=== PATIENT | male | born 1980 | race Caucasian/White ===

== ENCOUNTER 2016-07-02 20:29 | Emergency (ER) | payer OTHER ==
[2016-07-02 20:43] VITALS: TEMP 97.5; BMI 19.5
--- NOTE | 2016-07-02 21:21 | PDOC ---
*Physical Exam - Vital Signs Last Vital Signs Temp Pulse Resp BP Pulse Ox 97.5 F L 70 12 121/80 97 07/02/16 20:40 07/02/16 20:40 07/02/16 20:40 07/02/16 20:40 07/02/16 20:40 Medical Decision Making - Medical Decision Making 07/02/16 21:21 agree with care from [employer] SUPERVISOR CHASSIS Cassidy *DC/Admit/Observation/Transfer Diagnosis at time of Disposition: Abuse, drug or alcohol, Head trauma - Discharge Dispostion Disposition: HOME - Referrals Referrals: STAFF,NOT ON [Primary Care Provider] - Kaiden Pryor MD [Staff Physician] - - Patient Instructions Printed Discharge Instructions: DI for Alcohol Abuse Additional Instructions: Please follow up with your primary care doctor. Please drink alcohol in moderation. You have been provided a referral to a public transit specialist; please follow up by the of the week. If you experience weakness to one side, headache, dizziness, difficulty breathing, shortness of breath, chest pain, or any new or worsening symptoms, please return to the ER.
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
[2016-07-03 06:29] VITALS: BP 129/71; PULSE 76
== END 2016-07-03 06:41 | disposition home or self-care (01) ==
LOC: JER 20:29
DX: F10.120 Alcohol abuse with intoxication, uncomplicated (principal); S09.90XA Unspecified injury of head, initial encounter; W18.30XA Fall on same level, unspecified, initial encounter; Y93.9 Activity, unspecified; Y92.9 Unspecified place or not applicable; F17.210 Nicotine dependence, cigarettes, uncomplicated
CPT/HCPCS: 36415; 70450-TC; 70486-TC; 72125-TC; 80307; 99282-25

== ENCOUNTER 2016-07-03 08:59 | Inpatient (IN) | payer OTHER ==
[2016-07-03 09:07] VITALS: BMI 22.1
--- NOTE | 2016-07-03 11:33 | HP ---
CIWA Score - CIWA Score Nausea/Vomitin-No Nausea/No Vomiting Muscle Tremors: 4-Moderate,w/Arms Extend Anxiety: 4-Mod. Anxious/Guarded Agitation: 4-Moderately Restless Paroxysmal Sweats: 1-Minimal Palms Moist Orientation: 0-Oriented Tacttile Disturbances: 3-Moderate Itch/Numb/Burn Auditory Disturbances: 0-None Visual Disturbances: 0-None Headache: 1-Very Mild CIWA-Ar Total Score: 17 Admission ROS BHS - HPI Chief Complaint: DETOX TX FOR ALCOHOL DEPENDENCE Allergies/Adverse Reactions: Allergies Allergy/AdvReac Type Severity Reaction Status Date / Time No Known Allergies Allergy Verified 07/03/16 10:10 History of Present Illness: 36 Y/O H/M WITH A HX OF ALCOHOL,COCAINE,PCP AND MARIJUANA DEPENDENCE SEEKING DETOX TX. PT WAS AT [facility] 07/02/16 THROUGH THE NIGHT AND D/C'D THIS MORNING FOR FALL WHILE INTOXICATED. PT HAS A BRUISE/SWELLING ON LEFT FOREHEAD AND ORBITAL. Exam Limitations: No Limitations - Ebola screening Have you traveled outside of the country in the last 21 days: No Have you had contact with anyone from an Ebola affected area: No Have you been sick,other than usual withdrawal symptoms: No Do you have a fever: No - Review of Systems Constitutional: Chills, Loss of Appetite, Night Sweats, Changes in sleep, Unintentional Wgt. Loss EENT: reports: Blurred Vision Respiratory: reports: No Symptoms reported Cardiac: reports: Lightheadedness GI: reports: Poor Appetite : reports: No Symptoms Reported Musculoskeletal: reports: No Symptoms Reported Integumentary: reports: Bruising (FACIAL-LEFT ORBITAL ABOVE EYEBROW DUE TO FALL YESTERDAY ON INTOXICATION.) Neuro: reports: Headache, Seizure, Tremors, Unsteady Gait, Dizziness Endocrine: reports: No Symptoms Reported Hematology: reports: No Symptoms Reported Psychiatric: reports: Orientated x3, Anxious Other Systems: Reviewed and Negative Patient History - Patient Medical History Hx Anemia: No Hx Asthma: No Hx Chronic Obstructive Pulmonary Disease (COPD): No Hx Cardiac Disorders: No Hx Hypertension: No Hx Hypercholesterolemia: No Hx Seizures: Yes (childhood seizures) Hx Diabetes: No Hx Gastrointestinal Disorders: No Hx Genitourinary Disorders: No Hx Sexually Transmitted Disorders: No Hx Renal Disease (ESRD): No Hx Thyroid Disease: No Hx Human Immunodeficiency Virus (HIV): No (NEGATIVE HX) Hx Hepatitis C: No Hx Depression: No Hx Suicide Attempt: No (DENIES) Hx Schizophrenia: No - Patient Surgical History Past Surgical History: No Hx Neurologic Surgery: No Hx Cataract Extraction: No Hx Cardiac Surgery: No Hx Lung Surgery: No Hx Breast Surgery: No Hx Breast Biopsy: No Hx Abdominal Surgery: No Hx Appendectomy: No Hx Cholecystectomy: No Hx Genitourinary Surgery: No Hx Orthopedic Surgery: No Anesthesia Reaction: No - PPD History Previous Implant?: Yes Documented Results: Negative w/o proof Implanted On Prior R Admission?: No Results: TO BE DONE PPD to be Administered?: Yes - Reproductive History Patient is a Female of Child Bearing Age (11 -55 yrs old): No (MALE) - Smoking Cessation Smoking history: Current every day smoker Have you smoked in the past 12 months: Yes Aproximately how many cigarettes per day: 10 Hx Chewing Tobacco Use: No Initiated information on smoking cessation: Yes 'Breaking Loose' booklet given: 07/03/16 - Substance & Tx. History Hx Alcohol Use: Yes (VODKA) Hx Substance Use: Yes (PCP/MARIJUANA/COCAINE) Substance Use Type: Alcohol, Cocaine, Marijuana Hx Substance Use Treatment: Yes ([facility]) - Substances Abused Alcohol Route: Oral Frequency: Daily Amount used: 4 PINTS VODKA Age of first use: 20 Date of Last Use: 07/03/16 PCP Route: Smoking Frequency: 1-3 times last 30 days Amount used: 2-3 BAGS Age of first use: 22 Date of Last Use: 06/26/16 Marijuana/Hashish Route: Smoking Frequency: 1-3 times last 30 days Amount used: 1-2 BLUNTS Age of first use: 19 Date of Last Use: 07/02/16 Cocaine Route: Inhalation Frequency: 1-3 times last 30 days (3X/LAST 30 DAYS) Amount used: 1 BAG Age of first use: 22 Date of Last Use: 06/30/16 Family Disease History - Family Disease History Family History: Denies Admission Physical Exam BHS - Vital Signs Vital Signs: Vital Signs - 24 hr 07/03/16 09:02 Temperature 98.3 F Pulse Rate 79 Respiratory 18 Rate Blood Pressure 141/65 - Physical General Appearance: Yes: Moderate Distress, Alcohol on Breath, Intoxicated, Irritable, Anxious HEENTM: Yes: EOMI, Normocephalic, [place], Pharynx Normal Respiratory: Yes: Chest Non-Tender, Lungs Clear, Normal Breath Sounds, No Respiratory Distress Neck: Yes: Supple, Trachea in good position Breast: Yes: Breast Exam Deferred Cardiology: Yes: Regular Rhythm, Regular Rate, S1, S2 Abdominal: Yes: Normal Bowel Sounds, Non Tender, Flat, Soft Genitourinary: Yes: Other (N/C) Back: Yes: Within Normal Limits Musculoskeletal: Yes: full range of Motion, Gait Steady Extremities: Yes: Normal Range of Motion, Non-Tender, Tremors Neurological: Yes: armoured corps officer II-XII NML intact, Fully Oriented, Alert, Motor Strength 5/5 Integumentary: Yes: Normal Color, Dry, Warm Lymphatic: Yes: Within Normal Limits - Diagnostic (1) Alcohol dependence with uncomplicated withdrawal Current Visit: Yes Status: Acute (2) Cannabis dependence, uncomplicated Current Visit: Yes Status: Acute (3) Cocaine dependence, uncomplicated Current Visit: Yes Status: Acute (4) PCP dependence Current Visit: Yes Status: Acute (5) Left eye injury Current Visit: Yes Status: Acute Comment: DUE TO FALL ON INTOXICATION 07/02/16. RECIEVED CARE AT [facility]. (6) Traumatic ecchymosis of left orbit Current Visit: Yes Status: Acute Qualifiers: Encounter type: sequela Qualified Code(s): S05.12XS - Contusion of eyeball and orbital tissues, left eye, sequela Comment: DUE TO FALL ON INTOXICATION 07/02/16. Cleared for Admission [facility] - Detox or Rehab [facility] Level of Care: Medically Managed Detox Regimen/Protocol: Librium [facility] Breath Alcohol Content Breath Alcohol Content: 0.103 Urine Drug Screen - Results Drug Screen Negative: No Urine Drug Screen Results: THC-Marijuana, CJ-Cocaine, PCP-Phencyclidine
[2016-07-03] MEDS ORDERED: LOPERAMIDE HCL 2 MG CAPSULE PO PRN (11:46)
[2016-07-03] MEDS ORDERED: hydrOXYzine PAMOATE 25 MG CAPSULE (FP) PO PRN (11:46)
[2016-07-03] MEDS ORDERED: MENTHOL/PHENOL 1 EACH UD MM PRN (11:46)
[2016-07-03] MEDS ORDERED: P-EPHED 60MG/TRIPROLIDI 2.5MG TABLET PO PRN (11:46)
[2016-07-03] MEDS ORDERED: MAGNESIUM HYDROX 2400MG/30ML ORAL SUSPENSION 30 ML CUP PO PRN (11:46)
[2016-07-03] MEDS ORDERED: NICOTINE POLACRILEX 2 MG GUM BUC PRN (11:46)
[2016-07-03] MEDS ORDERED: guaiFENesin/D-METHORPHAN HB 10 ML UNIT-DOSE CUPS PO PRN (11:46)
[2016-07-03] MEDS ORDERED: MAG HYDROX/AL HYDROX/SIMETH 30 ML UNIT-DOSE CUP PO PRN (11:46)
[2016-07-03] MEDS ORDERED: MAGNESIUM CITRATE 300 ML BOTTLE PO PRN (11:46)
[2016-07-03] MEDS ORDERED: IBUPROFEN 400 MG TABLET (FP) PO PRN (11:46)
[2016-07-03] MEDS ORDERED: chlordiazePOXIDE HCL 25 MG CAPSULE PO PRN (11:46)
[2016-07-03] MEDS ORDERED: ACETAMINOPHEN 325 MG TABLET (FP) PO PRN (11:46)
[2016-07-03] MEDS ORDERED: chlordiazePOXIDE HCL 25 MG CAPSULE PO ONE (13:06)
[2016-07-03] MEDS: BACITRACIN 0.9 GM PACKET TP SCH ×2 (13:52→22:43)
[2016-07-03 15:36] LABS: HIV 1 & 2 AB NEGATIVE; HIV 1 AGp24 NEGATIVE
[2016-07-03 16:41] LABS: URINE APPEARANCE CLEAR; URINE BILIRUBIN NEGATIVE (NEGATIVE); URINE BLOOD NEGATIVE (NEGATIVE); URINE COLOR YELLOW; URINE GLUCOSE (UA) 1+ (NEGATIVE); URINE KETONE 2+ (NEGATIVE); URINE LEUK ESTERASE NEGATIVE (NEGATIVE); URINE NITRITE NEGATIVE (NEGATIVE); URINE PROTEIN NEGATIVE (NEGATIVE); URINE UROBILINOGEN NEGATIVE E.U./dl (0.2-1.0)
[2016-07-03] MEDS: chlordiazePOXIDE HCL 25 MG CAPSULE PO SCH ×2 (17:22→22:44)
[2016-07-03] MEDS: diphenhydrAMINE HCL 50 MG CAPSULE PO PRN (22:43)
[2016-07-03] MEDS: THIAMINE HCL 100 MG TABLET (FP) PO SCH (22:44)
[2016-07-04] MEDS: chlordiazePOXIDE HCL 25 MG CAPSULE PO SCH ×4 (06:01→22:34)
[2016-07-04 09:58] LABS: MCH 33.9 pg (25.7-33.7); MCHC 34.4 g/dl (32.0-35.9); MEAN CELL VOLUME 98.6 fl (80-96); MEAN PLT VOLUME 9.3 fl (7.5-11.1); PLATELET COUNT 192 K/MM3 (134-434); RDW 14.4 % (11.9-15.9); WHITE BLOOD COUNT 9.2 K/mm3 (4.0-10.0)
[2016-07-04] MEDS: NICOTINE 14 MG/24 HOURS TOPICAL PATCH TD SCH (10:29)
[2016-07-04] MEDS: BACITRACIN 0.9 GM PACKET TP SCH ×2 (10:29→22:34)
[2016-07-04] MEDS: PRENATAL VITAMINS W/ FOLIC ACID TABLET (FP) PO SCH (10:30)
[2016-07-04 10:39] LABS: ALK PHOS 99 U/L (45-117); ANION GAP 12 (8-16); BILIRUBIN,TOTAL 0.6 mg/dL (0.2-1.0); CALCIUM 8.5 mg/dL (8.5-10.1); CO2 25 mmol/L (21-32); CREATININE 0.8 mg/dL (0.7-1.3); GLUCOSE,RANDOM 132 mg/dL (74-106); SGOT/AST 385 U/L (15-37); SGPT/ALT 307 U/L (12-78); TOT PROT 7.3 g/dl (6.4-8.2)
[2016-07-04 10:58] LABS: SICKLE CELL SCREEN NEGATIVE (NEGATIVE)
--- NOTE | 2016-07-04 11:36 | PN ---
[facility] CIWA - CIWA Score Nausea/Vomitin-No Nausea/No Vomiting Muscle Tremors: 4-Moderate,w/Arms Extend Anxiety: 4-Mod. Anxious/Guarded Agitation: 4-Moderately Restless Paroxysmal Sweats: 1-Minimal Palms Moist Orientation: 0-Oriented Tacttile Disturbances: 3-Moderate Itch/Numb/Burn Auditory Disturbances: 0-None Visual Disturbances: 0-None Headache: 0-None Present CIWA-Ar Total Score: 16 BHS Progress Note (SOAP) Subjective: ANXIETY,SWEATS,TREMORS,INTERMITTENT SLEEP. Objective: 07/04/16 11:35 Vital Signs Temperature 97.1 F L 07/04/16 10:27 Pulse Rate 66 07/04/16 10:27 Respiratory Rate 20 07/04/16 10:27 Blood Pressure 147/97 07/04/16 10:27 O2 Sat by Pulse Oximetry (%) Laboratory Last Values WBC 9.2 K/mm3 (4.0-10.0) D 07/04/16 06:00 RBC 4.55 M/mm3 (4.00-5.60) 07/04/16 06:00 Hgb 15.4 GM/dL (11.7-16.9) 07/04/16 06:00 Hct 44.9 % (35.4-49) 07/04/16 06:00 MCV 98.6 fl (80-96) H 07/04/16 06:00 MCHC 34.4 g/dl (32.0-35.9) 07/04/16 06:00 RDW 14.4 % (11.9-15.9) 07/04/16 06:00 Plt Count 192 K/MM3 (134-434) D 07/04/16 06:00 MPV 9.3 fl (7.5-11.1) D 07/04/16 06:00 Sickle Cell Screen Negative (NEGATIVE) 07/04/16 06:00 Sodium 137 mmol/L (136-145) 07/04/16 06:00 Potassium 3.7 mmol/L (3.5-5.1) 07/04/16 06:00 Chloride 100 mmol/L (98-107) 07/04/16 06:00 Carbon Dioxide 25 mmol/L (21-32) 07/04/16 06:00 Anion Gap 12 (8-16) 07/04/16 06:00 BUN 10 mg/dL (7-18) D 07/04/16 06:00 Creatinine 0.8 mg/dL (0.7-1.3) 07/04/16 06:00 Creat Clearance w eGFR > 60 (>60) 07/04/16 06:00 Random Glucose 132 mg/dL (74-106) H D 07/04/16 06:00 Calcium 8.5 mg/dL (8.5-10.1) 07/04/16 06:00 Total Bilirubin 0.6 mg/dL (0.2-1.0) D 07/04/16 06:00 AST 385 U/L (15-37) H D 07/04/16 06:00 ALT 307 U/L (12-78) H D 07/04/16 06:00 Alkaline Phosphatase 99 U/L (45-117) 07/04/16 06:00 Total Protein 7.3 g/dl (6.4-8.2) 07/04/16 06:00 Albumin 4.0 g/dl (3.4-5.0) 07/04/16 06:00 Urine Color Yellow 07/03/16 14:00 Urine Appearance Clear 07/03/16 14:00 Urine pH 6.0 (5.0-8.0) 07/03/16 14:00 Ur Specific [place] 1.025 (1.001-1.035) 07/03/16 14:00 Urine Protein Negative (NEGATIVE) 07/03/16 14:00 Urine Glucose (UA) 1+ (NEGATIVE) H 07/03/16 14:00 Urine Ketones 2+ (NEGATIVE) H 07/03/16 14:00 Urine Blood Negative (NEGATIVE) 07/03/16 14:00 Urine Nitrite Negative (NEGATIVE) 07/03/16 14:00 Urine Bilirubin Negative (NEGATIVE) 07/03/16 14:00 Urine Urobilinogen Negative E.U./dl (0.2-1.0) 07/03/16 14:00 Ur Leukocyte Esterase Negative (NEGATIVE) 07/03/16 14:00 HIV 1&2 Antibody Screen Negative 07/03/16 10:25 HIV P24 Antigen Negative 07/03/16 10:25 Assessment: 07/04/16 11:36 WITHDRAWAL SX Plan: CONTINUE DETOX INCREASE PO FLUIDS
--- NOTE | 2016-07-04 14:28 | EKG ---
Test Reason : Blood Pressure : / mmHG Vent. Rate : 068 BPM Atrial Rate : 068 BPM P-R Int : 156 ms QRS Dur : 092 ms QT Int : 392 ms P-R-T Axes : 027 051 028 degrees QTc Int : 416 ms NORMAL SINUS RHYTHM MINIMAL VOLTAGE CRITERIA FOR LVH, MAY BE NORMAL VARIANT BORDERLINE ECG NO PREVIOUS ECGS AVAILABLE Confirmed by ELSA MENDOZA MD ([id number]) on 07/04/2016 2:28:35 PM Referred By: Confirmed By:ELSA MENDOZA MD
--- NOTE | 2016-07-04 15:46 | CONSULT ---
[facility] Psychiatric Consult - Data Date of interview: 07/04/16 Admission source: [facility] Identifying data: This is 56 years old male with no p[sychiatric hospitalization history intoxicated wuth: Alcohol, Cocaine, Cannabis, PCP nad Nicotine Substance Abuse History: Implanted On Prior [facility] Admission?: No. Results: TO BE DONE. PPD to be Administered?: Yes. - Reproductive History. Patient is a Female of Child Bearing Age (11 -55 yrs old): No (MALE). - Smoking Cessation. Smoking history: Current every day smoker. Have you smoked in the past 12 months: Yes. Aproximately how many cigarettes per day: 10. Hx Chewing Tobacco Use: No. Initiated information on smoking cessation: Yes. 'Breaking Loose' booklet given: 07/03/16. - Substance & Tx. History. Hx Alcohol Use: Yes (VODKA ). Hx Substance Use: Yes (PCP/MARIJUANA/COCAINE). Substance Use Type: Alcohol , Cocaine, Marijuana. Hx Substance Use Treatment: Yes ([facility]). - Substances Abused. Alcohol. Route: Oral. Frequency: Daily. Amount used: 4 PINTS VODKA. Age of first use: 20. Date of Last Use: 07/03/16. PCP. Route: Smoking. Frequency: 1-3 times last 30 days. Amount used: 2-3 BAGS. Age of first use: 22. Date of Last Use: 06/26/16. Marijuana/ Hashish. Route: Smoking. Frequency: 1-3 times last 30 days. Amount used: 1-2 BLUNTS. Age of first use: 19. Date of Last Use: 07/02/16. Cocaine. Route : Inhalation. Frequency: 1-3 times last 30 days (3X/LAST 30 DAYS). Amount used : 1 BAG. Age of first use: 22. Date of Last Use: 06/30/16 Medical History: Left eye injury, History of Head trauma, Scalp lacerations, Callus history Psychiatric History: Patient reports no past psychiatric history Physical/Sexual Abuse/Trauma History: Denies Additional Comment: Observation Mental Status Exam - Mental Status Exam Alert and Oriented to: Person Cognitive Function: Fair Patient Appearance: Unkempt Mood: Sad Affect: Flat Patient Behavior: Sedated Speech Pattern: Delayed Voice Loudness: Mildly Soft/Quiet Thought Process: Circumstantial Thought Disorder: Being Controlled Hallucinations: Denies Suicidal Ideation: Denies Homicidal Ideation: Denies Insight/Judgement: Fair Sleep: Difficulty falling asleep Appetite: Fair Muscle strength/Tone: Mild Hypotonicity Gait/Station: Shuffling Additional Comments: Observation Psychiatric Findings - Problem List ([place] 1, 2,3) (1) Alcohol dependence with uncomplicated withdrawal Current Visit: Yes Status: Acute (2) Cannabis dependence, uncomplicated Current Visit: Yes Status: Acute (3) Cocaine dependence, uncomplicated Current Visit: Yes Status: Acute (4) PCP dependence Current Visit: Yes Status: Suspected (5) Drug-induced mood disorder Current Visit: Yes Status: Acute - Initial Treatment Plan Initial Treatment Plan: Observation
[2016-07-04] MEDS: THIAMINE HCL 100 MG TABLET (FP) PO SCH (22:34)
[2016-07-04] MEDS: diphenhydrAMINE HCL 50 MG CAPSULE PO PRN (22:34)
[2016-07-05] MEDS: chlordiazePOXIDE HCL 25 MG CAPSULE PO SCH ×2 (05:50→10:16)
[2016-07-05] MEDS: PRENATAL VITAMINS W/ FOLIC ACID TABLET (FP) PO SCH (10:15)
[2016-07-05] MEDS: NICOTINE 14 MG/24 HOURS TOPICAL PATCH TD SCH (10:16)
[2016-07-05] MEDS: BACITRACIN 0.9 GM PACKET TP SCH ×2 (10:16→22:21)
--- NOTE | 2016-07-05 10:32 | PN ---
[facility] CIWA - CIWA Score Nausea/Vomitin-No Nausea/No Vomiting Muscle Tremors: 4-Moderate,w/Arms Extend Anxiety: 4-Mod. Anxious/Guarded Agitation: 4-Moderately Restless Paroxysmal Sweats: 1-Minimal Palms Moist Orientation: 0-Oriented Tacttile Disturbances: 3-Moderate Itch/Numb/Burn Auditory Disturbances: 0-None Visual Disturbances: 0-None Headache: 0-None Present CIWA-Ar Total Score: 16 BHS Progress Note (SOAP) Subjective: ANXIETY,CHILLS,FATIGUE. Objective: 07/05/16 10:33 Vital Signs Temperature 98.5 F 07/05/16 09:55 Pulse Rate 64 07/05/16 09:55 Respiratory Rate 18 07/05/16 09:55 Blood Pressure 137/91 07/05/16 09:55 O2 Sat by Pulse Oximetry (%) Laboratory Last Values WBC 9.2 K/mm3 (4.0-10.0) D 07/04/16 06:00 RBC 4.55 M/mm3 (4.00-5.60) 07/04/16 06:00 Hgb 15.4 GM/dL (11.7-16.9) 07/04/16 06:00 Hct 44.9 % (35.4-49) 07/04/16 06:00 MCV 98.6 fl (80-96) H 07/04/16 06:00 MCHC 34.4 g/dl (32.0-35.9) 07/04/16 06:00 RDW 14.4 % (11.9-15.9) 07/04/16 06:00 Plt Count 192 K/MM3 (134-434) D 07/04/16 06:00 MPV 9.3 fl (7.5-11.1) D 07/04/16 06:00 Sickle Cell Screen Negative (NEGATIVE) 07/04/16 06:00 Sodium 137 mmol/L (136-145) 07/04/16 06:00 Potassium 3.7 mmol/L (3.5-5.1) 07/04/16 06:00 Chloride 100 mmol/L (98-107) 07/04/16 06:00 Carbon Dioxide 25 mmol/L (21-32) 07/04/16 06:00 Anion Gap 12 (8-16) 07/04/16 06:00 BUN 10 mg/dL (7-18) D 07/04/16 06:00 Creatinine 0.8 mg/dL (0.7-1.3) 07/04/16 06:00 Creat Clearance w eGFR > 60 (>60) 07/04/16 06:00 Random Glucose 132 mg/dL (74-106) H D 07/04/16 06:00 Calcium 8.5 mg/dL (8.5-10.1) 07/04/16 06:00 Total Bilirubin 0.6 mg/dL (0.2-1.0) D 07/04/16 06:00 AST 385 U/L (15-37) H D 07/04/16 06:00 ALT 307 U/L (12-78) H D 07/04/16 06:00 Alkaline Phosphatase 99 U/L (45-117) 07/04/16 06:00 Total Protein 7.3 g/dl (6.4-8.2) 07/04/16 06:00 Albumin 4.0 g/dl (3.4-5.0) 07/04/16 06:00 Urine Color Yellow 07/03/16 14:00 Urine Appearance Clear 07/03/16 14:00 Urine pH 6.0 (5.0-8.0) 07/03/16 14:00 Ur Specific [place] 1.025 (1.001-1.035) 07/03/16 14:00 Urine Protein Negative (NEGATIVE) 07/03/16 14:00 Urine Glucose (UA) 1+ (NEGATIVE) H 07/03/16 14:00 Urine Ketones 2+ (NEGATIVE) H 07/03/16 14:00 Urine Blood Negative (NEGATIVE) 07/03/16 14:00 Urine Nitrite Negative (NEGATIVE) 07/03/16 14:00 Urine Bilirubin Negative (NEGATIVE) 07/03/16 14:00 Urine Urobilinogen Negative E.U./dl (0.2-1.0) 07/03/16 14:00 Ur Leukocyte Esterase Negative (NEGATIVE) 07/03/16 14:00 RPR Titer Nonreactive (NONREACTIVE) 07/04/16 06:00 HIV 1&2 Antibody Screen Negative 07/03/16 10:25 HIV P24 Antigen Negative 07/03/16 10:25 Assessment: 07/05/16 10:33 WITHDRAWAL SX Plan: CONTINUE DETOX
[2016-07-05] MEDS: chlordiazePOXIDE 5 MG CAPSULE PO SCH ×2 (17:42→22:22)
[2016-07-05] MEDS: THIAMINE HCL 100 MG TABLET (FP) PO SCH (22:21)
[2016-07-05] MEDS: diphenhydrAMINE HCL 50 MG CAPSULE PO PRN (22:23)
[2016-07-06] MEDS: chlordiazePOXIDE 5 MG CAPSULE PO SCH ×2 (05:42→10:20)
[2016-07-06] MEDS ORDERED: IBUPROFEN 600 MG TABLET (FP) PO PRN (10:00)
--- NOTE | 2016-07-06 10:01 | PN ---
BHS Progress Note (SOAP) Subjective: SWEATING,INTERRUPTED SLEEP,RESTLESS Objective: 07/06/16 10:00 Vital Signs - 8 hr 07/06/16 07/06/16 03:23 06:25 Temperature 98.0 F Pulse Rate 67 Respiratory 18 18 Rate Blood Pressure 139/95 Laboratory Tests 07/03/16 07/03/16 07/04/16 10:25 14:00 06:00 WBC 9.2 D RBC 4.55 Hgb 15.4 Hct 44.9 MCV 98.6 H MCHC 34.4 RDW 14.4 Plt Count 192 D MPV 9.3 D Sickle Cell Screen Negative Sodium Potassium Chloride Carbon Dioxide Anion Gap BUN Creatinine Creat Clearance w eGFR Random Glucose Calcium Total Bilirubin AST ALT Alkaline Phosphatase Total Protein Albumin Urine Color Yellow Urine Appearance Clear Urine pH 6.0 Ur Specific [place] 1.025 Urine Protein Negative Urine Glucose (UA) 1+ H Urine Ketones 2+ H Urine Blood Negative Urine Nitrite Negative Urine Bilirubin Negative Urine Urobilinogen Negative Ur Leukocyte Esterase Negative RPR Titer HIV 1&2 Antibody Screen Negative HIV P24 Antigen Negative 07/04/16 07/04/16 06:00 06:00 WBC RBC Hgb Hct MCV MCHC RDW Plt Count MPV Sickle Cell Screen Sodium 137 Potassium 3.7 Chloride 100 Carbon Dioxide 25 Anion Gap 12 BUN 10 D Creatinine 0.8 Creat Clearance w eGFR > 60 Random Glucose 132 H D Calcium 8.5 Total Bilirubin 0.6 D AST 385 H D ALT 307 H D Alkaline Phosphatase 99 Total Protein 7.3 Albumin 4.0 Urine Color Urine Appearance Urine pH Ur Specific [place] Urine Protein Urine Glucose (UA) Urine Ketones Urine Blood Urine Nitrite Urine Bilirubin Urine Urobilinogen Ur Leukocyte Esterase RPR Titer Nonreactive HIV 1&2 Antibody Screen HIV P24 Antigen LABS NOTED Assessment: 07/06/16 10:01 WITHDRAWAL SX. Plan: CONTINUE DETOX
[2016-07-06] MEDS: PRENATAL VITAMINS W/ FOLIC ACID TABLET (FP) PO SCH (10:19)
[2016-07-06] MEDS: BACITRACIN 0.9 GM PACKET TP SCH ×2 (10:20→22:26)
[2016-07-06] MEDS: NICOTINE 14 MG/24 HOURS TOPICAL PATCH TD SCH (10:20)
[2016-07-06] MEDS: chlordiazePOXIDE HCL 10 MG CAPSULE PO SCH ×2 (17:39→22:26)
[2016-07-06] MEDS: THIAMINE HCL 100 MG TABLET (FP) PO SCH (22:26)
[2016-07-06] MEDS: diphenhydrAMINE HCL 50 MG CAPSULE PO PRN (22:27)
[2016-07-06 22:56] VITALS: BP 145/109; PULSE 85; TEMP 98.8
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
--- NOTE | 2016-07-07 00:11 | DS ---
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 - Physical Exam Results Vital Signs: Vital Signs Temperature 98.8 F 07/06/16 22:55 Pulse Rate 85 07/06/16 22:55 Respiratory Rate 18 07/06/16 22:55 Blood Pressure 145/109 07/06/16 22:55 O2 Sat by Pulse Oximetry (%) Pertinent Admission Physical Exam Findings: WITHDRAWAL SX'S - Medication Discharge Medications: Ambulatory Orders NK [No Known Home Medication] 07/28/14 NK [No Known Home Medication] 10/29/14 - Diagnosis (1) Alcohol dependence with uncomplicated withdrawal Current Visit: Yes Status: Acute (2) Cannabis dependence, uncomplicated Current Visit: Yes Status: Acute (3) Cocaine dependence, uncomplicated Current Visit: Yes Status: Acute (4) Traumatic ecchymosis of left orbit Current Visit: Yes Status: Acute Qualifiers: Encounter type: sequela Qualified Code(s): S05.12XS - Contusion of eyeball and orbital tissues, left eye, sequela (5) PCP dependence Current Visit: Yes Status: Suspected - AMA Did Patient Leave Against Medical Advice: Yes
== END 2016-07-07 00:02 | disposition left against medical advice (07) | DRG 770 ==
LOC: YASAS 08:59 → Y3N 13:04
PROVIDERS: ADMIT Internal Medicine; ATTEND Internal Medicine
PROC: HZ2ZZZZ Detoxification Services for Substance Abuse Treatment (ICD-10-PCS; principal; 2016-07-03)
DX: F10.230 Alcohol dependence with withdrawal, uncomplicated (principal); F14.20 Cocaine dependence, uncomplicated; F12.20 Cannabis dependence, uncomplicated; F16.20 Hallucinogen dependence, uncomplicated; F17.210 Nicotine dependence, cigarettes, uncomplicated; F19.24 Other psychoactive substance dependence with psychoactive substance-induced mood disorder; Z86.69 Personal history of other diseases of the nervous system and sense organs; S05.12XS Contusion of eyeball and orbital tissues, left eye, sequela; W18.30XD Fall on same level, unspecified, subsequent encounter
CPT/HCPCS: 36415; 80053; 81003; 85027; 85660; 86593; 87389; 93005; 93010

== ENCOUNTER 2017-08-06 16:08 | Inpatient (IN) | payer OTHER ==
[2017-08-06 16:47] VITALS: BMI 24.3
--- NOTE | 2017-08-06 19:16 | HP ---
CIWA Score - CIWA Score Nausea/Vomitin-No Nausea/No Vomiting Muscle Tremors: 3 Anxiety: 3 Agitation: 1-Slight > Activity Paroxysmal Sweats: 3 Orientation: 0-Oriented Tacttile Disturbances: 0-None Auditory Disturbances: 0-None Visual Disturbances: 2-Mild Sensitivity Headache: 3-Moderate CIWA-Ar Total Score: 15 Admission ROS BHS - HPI Chief Complaint: alcohol withdrawal symptoms Allergies/Adverse Reactions: Allergies Allergy/AdvReac Type Severity Reaction Status Date / Time No Known Allergies Allergy Verified 08/06/17 18:44 History of Present Illness: 37 yo with hx nicotine and alcohol dependence is here seeking detox. Reports alcohol related seizure a year ago. PMHX: depression, bipolar and anxiety. Denies suicidal / homicidal ideation or suicide attempt. Longest period of sobriety 2 years. Last detox at [facility] 4 weeks ago for alcohol. - Ebola screening Have you traveled outside of the country in the last 21 days: No Have you had contact with anyone from an Ebola affected area: No Have you been sick,other than usual withdrawal symptoms: No Do you have a fever: No - Review of Systems Constitutional: Loss of Appetite, Changes in sleep EENT: reports: No Symptoms Reported Respiratory: reports: No Symptoms reported Cardiac: reports: No Symptoms Reported GI: reports: Nausea, Poor Appetite, Poor Fluid Intake, Vomiting, Indigestion : reports: No Symptoms Reported Musculoskeletal: reports: No Symptoms Reported Integumentary: reports: No Symptoms Reported Neuro: reports: Seizure Endocrine: reports: No Symptoms Reported Hematology: reports: No Symptoms Reported Psychiatric: reports: Orientated x3, Anxious Other Systems: Reviewed and Negative Patient History - Patient Medical History Hx Anemia: No Hx Asthma: No Hx Chronic Obstructive Pulmonary Disease (COPD): No Hx Cancer: No Hx Cardiac Disorders: No Hx Congestive Heart Failure: No Hx Hypertension: Yes (not on meds ) Hx Hypercholesterolemia: No Hx Pacemaker: No HX Cerebrovascular Accident: No Hx Seizures: Yes (childhood seizures) Hx Diabetes: No Hx Gastrointestinal Disorders: No Hx Liver Disease: No Hx Genitourinary Disorders: No Hx Sexually Transmitted Disorders: No Hx Renal Disease (ESRD): No Hx Thyroid Disease: No Hx Human Immunodeficiency Virus (HIV): No (NEGATIVE HX) Hx Hepatitis C: No Hx Depression: No Hx Suicide Attempt: No (DENIES) Hx Schizophrenia: No - Patient Surgical History Past Surgical History: No Hx Neurologic Surgery: No Hx Cataract Extraction: No Hx Cardiac Surgery: No Hx Lung Surgery: No Hx Breast Surgery: No Hx Breast Biopsy: No Hx Abdominal Surgery: No Hx Appendectomy: No Hx Cholecystectomy: No Hx Genitourinary Surgery: No Hx Orthopedic Surgery: No Anesthesia Reaction: No - PPD History Previous Implant?: Yes Documented Results: Negative w/proof Date: 07/05/16 Results: TO BE DONE PPD to be Administered?: Yes - Reproductive History Patient is a Female of Child Bearing Age (11 -55 yrs old): No - Smoking Cessation Smoking history: Current every day smoker Have you smoked in the past 12 months: Yes Aproximately how many cigarettes per day: 10 Hx Chewing Tobacco Use: No Initiated information on smoking cessation: Yes 'Breaking Loose' booklet given: 08/06/17 - Substance & Tx. History Hx Alcohol Use: Yes Hx Substance Use: Yes Substance Use Type: Alcohol Hx Substance Use Treatment: Yes ([facility] 4 weeks ago ) - Substances Abused Alcohol Route: Oral Frequency: Daily Amount used: 3 PINT VODKA Age of first use: 22 Date of Last Use: 08/06/17 Family Disease History - Family Disease History Family Disease History: Other: Father (unknown), Mother (alive and well ) Admission Physical Exam BHS - Vital Signs Vital Signs: Vital Signs - 24 hr 08/06/17 16:44 Temperature 94 F L Pulse Rate 94 H Respiratory 18 Rate Blood Pressure 150/95 - Physical General Appearance: Yes: Disheveled, Alcohol on Breath, Irritable, Sweating, Anxious HEENTM: Yes: EOMI, Hearing grossly Normal, Normal ENT Inspection, Normocephalic , Normal Voice, [place], Pharynx Normal, Tm's normal Respiratory: Yes: Chest Non-Tender, Lungs Clear, Normal Breath Sounds, No Respiratory Distress, No Accessory Muscle Use Neck: Yes: No masses,lesions,Nodules, Trachea in good position Breast: Yes: Breast Exam Deferred Cardiology: Yes: Regular Rhythm, Regular Rate, S1, S2 Abdominal: Yes: Normal Bowel Sounds, Non Tender, Flat, Soft Genitourinary: Yes: Within Normal Limits Back: Yes: Normal Inspection Musculoskeletal: Yes: full range of Motion, Gait Steady, Pelvis Stable Extremities: Yes: Normal Capillary Refill, Normal Inspection, Normal Range of Motion, Non-Tender 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 intact, Fully Oriented, Alert, Motor Strength 5/5, Normal Response, Depressed Affect Integumentary: Yes: Normal Color, Dry, Warm Lymphatic: Yes: Within Normal Limits - Diagnostic (1) History of seizure Current Visit: Yes Status: Chronic (2) Dehydration Current Visit: Yes Status: Acute (3) Weight loss Current Visit: Yes Status: Acute (4) Depressed affect Current Visit: Yes Status: Acute (5) Alcohol dependence with uncomplicated withdrawal Current Visit: Yes Status: Acute Cleared for Admission [facility] - Detox or Rehab [facility] Level of Care: Medically Managed Detox Regimen/Protocol: Librium [facility] Breath Alcohol Content Breath Alcohol Content: 0.322 Urine Drug Screen - Results Drug Screen Negative: Yes
[2017-08-06] MEDS ORDERED: guaiFENesin/D-METHORPHAN HB 10 ML UNIT-DOSE CUPS PO PRN (19:19)
[2017-08-06] MEDS ORDERED: MAGNESIUM CITRATE 300 ML BOTTLE PO PRN (19:19)
[2017-08-06] MEDS ORDERED: hydrOXYzine PAMOATE 50 MG CAPSULE (FP) PO PRN (19:19)
[2017-08-06] MEDS ORDERED: chlordiazePOXIDE HCL 25 MG CAPSULE PO ONE (19:19)
[2017-08-06] MEDS ORDERED: IBUPROFEN 400 MG TABLET (FP) PO PRN (19:19)
[2017-08-06] MEDS ORDERED: P-EPHED 60MG/TRIPROLIDI 2.5MG TABLET PO PRN (19:19)
[2017-08-06] MEDS ORDERED: LOPERAMIDE HCL 2 MG CAPSULE PO PRN (19:19)
[2017-08-06] MEDS ORDERED: MAG HYDROX/AL HYDROX/SIMETH 30 ML UNIT-DOSE CUP PO PRN (19:19)
[2017-08-06] MEDS ORDERED: NICOTINE POLACRILEX 2 MG GUM BC PRN (19:19)
[2017-08-06] MEDS ORDERED: MAGNESIUM HYDROX 2400MG/30ML ORAL SUSPENSION 30 ML CUP PO PRN (19:19)
[2017-08-06] MEDS ORDERED: MENTHOL/PHENOL 1 EACH UD MM PRN (19:19)
[2017-08-06] MEDS ORDERED: ACETAMINOPHEN 325 MG TABLET (FP) PO PRN (19:19)
[2017-08-06 22:48] LABS: URINE APPEARANCE CLEAR; URINE BILIRUBIN NEGATIVE (NEGATIVE); URINE BLOOD NEGATIVE (NEGATIVE); URINE COLOR COLORLESS; URINE GLUCOSE (UA) NEGATIVE (NEGATIVE); URINE KETONE NEGATIVE (NEGATIVE); URINE LEUK ESTERASE NEGATIVE (NEGATIVE); URINE NITRITE NEGATIVE (NEGATIVE); URINE PROTEIN NEGATIVE (NEGATIVE); URINE UROBILINOGEN NEGATIVE mg/dL (0.2-1.0)
[2017-08-06] MEDS: THIAMINE HCL 100 MG TABLET (FP) PO SCH (23:23)
[2017-08-06] MEDS: chlordiazePOXIDE HCL 25 MG CAPSULE PO SCH (23:23)
[2017-08-07] MEDS: chlordiazePOXIDE HCL 25 MG CAPSULE PO PRN (02:43)
[2017-08-07] MEDS: chlordiazePOXIDE HCL 25 MG CAPSULE PO SCH ×4 (05:24→22:13)
[2017-08-07 10:18] LABS: HEMATOCRIT 41.3 % (35.4-49); HEMOGLOBIN 14.6 GM/dL (11.7-16.9); MCHC 35.4 g/dl (32.0-35.9); MEAN CELL VOLUME 93.2 fl (80-96); MEAN PLT VOLUME 8.2 fl (7.5-11.1); PLATELET COUNT 207 K/MM3 (134-434); RBC 4.44 M/mm3 (4.00-5.60); RDW 13.5 % (11.9-15.9); WHITE BLOOD COUNT 5.8 K/mm3 (4.0-10.0)
--- NOTE | 2017-08-07 10:26 | PN ---
S CIWA - CIWA Score Nausea/Vomitin Muscle Tremors: 3 Anxiety: 3 Agitation: 2 Paroxysmal Sweats: 1-Minimal Palms Moist Orientation: 0-Oriented Tacttile Disturbances: 1-Very Mild Itch/Numbness Auditory Disturbances: 1-Very Mild Visual Disturbances: 0-None Headache: 2-Mild CIWA-Ar Total Score: 16 BHS Progress Note (SOAP) Subjective: ALERT,IRRITABLE,ANXIOUS,INTERRUPTED SLEEP,TREMOR Objective: 08/07/17 10:24 Vital Signs Temperature 96.4 F L 08/07/17 09:26 Pulse Rate 65 08/07/17 09:26 Respiratory Rate 18 08/07/17 09:26 Blood Pressure 128/91 08/07/17 09:26 O2 Sat by Pulse Oximetry (%) EKG NSR,NORMAL ECG Laboratory Last Values WBC 5.8 K/mm3 (4.0-10.0) D 08/07/17 07:00 RBC 4.44 M/mm3 (4.00-5.60) 08/07/17 07:00 Hgb 14.6 GM/dL (11.7-16.9) 08/07/17 07:00 Hct 41.3 % (35.4-49) 08/07/17 07:00 MCV 93.2 fl (80-96) 08/07/17 07:00 MCH 33.0 pg (25.7-33.7) 08/07/17 07:00 MCHC 35.4 g/dl (32.0-35.9) 08/07/17 07:00 RDW 13.5 % (11.9-15.9) 08/07/17 07:00 Plt Count 207 K/MM3 (134-434) 08/07/17 07:00 MPV 8.2 fl (7.5-11.1) D 08/07/17 07:00 Urine Color Colorless 08/06/17 20:00 Urine Appearance Clear 08/06/17 20:00 Urine pH 7.0 (5.0-8.0) 08/06/17 20:00 Ur Specific [place] 1.004 (1.001-1.035) 08/06/17 20:00 Urine Protein Negative (NEGATIVE) 08/06/17 20:00 Urine Glucose (UA) Negative (NEGATIVE) 08/06/17 20:00 Urine Ketones Negative (NEGATIVE) 08/06/17 20:00 Urine Blood Negative (NEGATIVE) 08/06/17 20:00 Urine Nitrite Negative (NEGATIVE) 08/06/17 20:00 Urine Bilirubin Negative (NEGATIVE) 08/06/17 20:00 Urine Urobilinogen Negative mg/dL (0.2-1.0) 08/06/17 20:00 Ur Leukocyte Esterase Negative (NEGATIVE) 08/06/17 20:00 LABS PENDING Assessment: 08/07/17 10:25 WITHDRAWAL SYMPTOM Plan: CONTINUE DETOX
[2017-08-07] MEDS: NICOTINE 21 MG/24 HOURS TOPICAL PATCH TD SCH (11:01)
[2017-08-07] MEDS: PRENATAL VITAMINS W/ FOLIC ACID TABLET (FP) PO SCH (11:01)
--- NOTE | 2017-08-07 11:09 | CONSULT ---
[facility] Psychiatric Consult - Data Date of interview: 08/07/17 Admission source: [facility] Identifying data: Pt. is a 37 year old single male, father of three, unemployed , and homeless but resides in a fci. This is patient's second admission to rehab. Pt. admitted for alcohol dependence. Substance Abuse History: Following information confirmed with Mr. Garces: Smoking Cessation. Smoking history: Current every day smoker. Have you smoked in the past 12 months: Yes. Aproximately how many cigarettes per day: 10. Hx Chewing Tobacco Use: No. Initiated information on smoking cessation: Yes. ' Breaking Loose' booklet given: 08/06/17. - Substance & Tx. History. Hx Alcohol Use: Yes. Hx Substance Use: Yes. Substance Use Type: Alcohol. Hx Substance Use Treatment: Yes ([facility] 4 weeks ago ). - Substances Abused. Alcohol. Route: Oral. Frequency: Daily. Amount used: 3 PINT VODKA. Age of first use: 22. Date of Last Use: 08/06/17 Medical History: Hypertension, Seizures (childhood seizures) Psychiatric History: Pt. denies h/o psychiatric hospitalizations, suicide attempt, and outpatient care. Physical/Sexual Abuse/Trauma History: Denies. Mental Status Exam - Mental Status Exam Alert and Oriented to: Time, Place, Person Cognitive Function: Good Patient Appearance: Well Groomed Mood: Euthymic Affect: Appropriate Patient Behavior: Cooperative Speech Pattern: Appropriate Voice Loudness: Normal Thought Process: Goal Oriented Thought Disorder: Not Present Hallucinations: Denies Suicidal Ideation: Denies Homicidal Ideation: Denies Insight/Judgement: Poor Sleep: Poorly Appetite: Fair Muscle strength/Tone: Normal Gait/Station: Normal Psychiatric Findings - Problem List ([place] 1, 2,3) (1) Alcohol dependence with uncomplicated withdrawal Current Visit: Yes Status: Acute (2) Substance-induced sleep disorder Current Visit: Yes Status: Acute - Initial Treatment Plan Initial Treatment Plan: Psychoeducation provided. Detoxification in progress. Benadryl 50mg qhs prn ordered for insomnia. Benefits and side effects discussed. Verbal consent given. Will continue to monitor.
--- NOTE | 2017-08-07 11:43 | EKG ---
Test Reason : Blood Pressure : / mmHG Vent. Rate : 081 BPM Atrial Rate : 081 BPM P-R Int : 162 ms QRS Dur : 102 ms QT Int : 364 ms P-R-T Axes : 047 045 034 degrees QTc Int : 422 ms NORMAL SINUS RHYTHM NORMAL ECG WHEN COMPARED WITH ECG OF 03-JUL-2016 14:01, T WAVE AMPLITUDE HAS DECREASED IN ANTERIOR LEADS Confirmed by ELSA MENDOZA MD ([id number]) on 08/07/2017 11:42:49 AM Referred By: Confirmed By:ELSA MENDOZA MD
[2017-08-07 11:55] LABS: ALBUMIN 3.7 g/dl (3.4-5.0); ANION GAP 8 (8-16); BLOOD UREA NITROGEN 11 mg/dL (7-18); CALCIUM 7.5 mg/dL (8.5-10.1); CHLORIDE 101 mmol/L (98-107); CO2 27 mmol/L (21-32); GLUCOSE,RANDOM 105 mg/dL (74-106); POTASSIUM 3.5 mmol/L (3.5-5.1); SODIUM 136 mmol/L (136-145)
[2017-08-07 11:58] LABS: ALK PHOS 51 U/L (45-117); BILIRUBIN,TOTAL 0.4 mg/dL (0.2-1.0); CREATININE 0.7 mg/dL (0.7-1.3); SGOT/AST 47 U/L (15-37)
[2017-08-07 12:19] LABS: SGPT/ALT 48 U/L (12-78); TOT PROT 6.9 g/dl (6.4-8.2)
[2017-08-07] MEDS ORDERED: diphenhydrAMINE HCL 50 MG CAPSULE PO PRN (22:00)
[2017-08-07] MEDS: THIAMINE HCL 100 MG TABLET (FP) PO SCH (22:13)
[2017-08-08] MEDS: chlordiazePOXIDE HCL 25 MG CAPSULE PO SCH ×3 (05:00→17:33)
[2017-08-08] MEDS: PRENATAL VITAMINS W/ FOLIC ACID TABLET (FP) PO SCH (11:04)
[2017-08-08] MEDS: NICOTINE 21 MG/24 HOURS TOPICAL PATCH TD SCH (11:05)
--- NOTE | 2017-08-08 12:24 | PN ---
S CIWA - CIWA Score Nausea/Vomitin Muscle Tremors: 3 Anxiety: 3 Agitation: 2 Paroxysmal Sweats: 1-Minimal Palms Moist Orientation: 0-Oriented Tacttile Disturbances: 1-Very Mild Itch/Numbness Auditory Disturbances: 1-Very Mild Visual Disturbances: 0-None Headache: 2-Mild CIWA-Ar Total Score: 16 BHS Progress Note (SOAP) Subjective: ALERT,IRRITABLE,ANXIOUS,INTERRUPTED SLEEP,TREMOR Objective: 08/08/17 12:23 Vital Signs Temperature 97.9 F 08/08/17 10:00 Pulse Rate 74 08/08/17 10:00 Respiratory Rate 18 08/08/17 10:00 Blood Pressure 142/94 08/08/17 10:00 O2 Sat by Pulse Oximetry (%) Laboratory Last Values WBC 5.8 K/mm3 (4.0-10.0) D 08/07/17 07:00 RBC 4.44 M/mm3 (4.00-5.60) 08/07/17 07:00 Hgb 14.6 GM/dL (11.7-16.9) 08/07/17 07:00 Hct 41.3 % (35.4-49) 08/07/17 07:00 MCV 93.2 fl (80-96) 08/07/17 07:00 MCH 33.0 pg (25.7-33.7) 08/07/17 07:00 MCHC 35.4 g/dl (32.0-35.9) 08/07/17 07:00 RDW 13.5 % (11.9-15.9) 08/07/17 07:00 Plt Count 207 K/MM3 (134-434) 08/07/17 07:00 MPV 8.2 fl (7.5-11.1) D 08/07/17 07:00 Sodium 136 mmol/L (136-145) 08/07/17 07:00 Potassium 3.5 mmol/L (3.5-5.1) 08/07/17 07:00 Chloride 101 mmol/L (98-107) 08/07/17 07:00 Carbon Dioxide 27 mmol/L (21-32) 08/07/17 07:00 Anion Gap 8 (8-16) 08/07/17 07:00 BUN 11 mg/dL (7-18) 08/07/17 07:00 Creatinine 0.7 mg/dL (0.7-1.3) 08/07/17 07:00 Creat Clearance w eGFR > 60 (>60) 08/07/17 07:00 Random Glucose 105 mg/dL (74-106) D 08/07/17 07:00 Calcium 7.5 mg/dL (8.5-10.1) L 08/07/17 07:00 Total Bilirubin 0.4 mg/dL (0.2-1.0) D 08/07/17 07:00 AST 47 U/L (15-37) H D 08/07/17 07:00 ALT 48 U/L (12-78) D 08/07/17 07:00 Alkaline Phosphatase 51 U/L (45-117) D 08/07/17 07:00 Total Protein 6.9 g/dl (6.4-8.2) 08/07/17 07:00 Albumin 3.7 g/dl (3.4-5.0) 08/07/17 07:00 Urine Color Colorless 08/06/17 20:00 Urine Appearance Clear 08/06/17 20:00 Urine pH 7.0 (5.0-8.0) 08/06/17 20:00 Ur Specific [place] 1.004 (1.001-1.035) 08/06/17 20:00 Urine Protein Negative (NEGATIVE) 08/06/17 20:00 Urine Glucose (UA) Negative (NEGATIVE) 08/06/17 20:00 Urine Ketones Negative (NEGATIVE) 08/06/17 20:00 Urine Blood Negative (NEGATIVE) 08/06/17 20:00 Urine Nitrite Negative (NEGATIVE) 08/06/17 20:00 Urine Bilirubin Negative (NEGATIVE) 08/06/17 20:00 Urine Urobilinogen Negative mg/dL (0.2-1.0) 08/06/17 20:00 Ur Leukocyte Esterase Negative (NEGATIVE) 08/06/17 20:00 RPR Titer Nonreactive (NONREACTIVE) 08/07/17 07:00 Assessment: 08/08/17 12:24 WITHDRAWAL SYMPTOM Plan: CONTINUE DETOX
[2017-08-08] MEDS: chlordiazePOXIDE HCL 25 MG CAPSULE PO PRN (14:10)
[2017-08-08] MEDS: chlordiazePOXIDE 5 MG CAPSULE PO SCH (23:04)
[2017-08-08] MEDS: THIAMINE HCL 100 MG TABLET (FP) PO SCH (23:04)
[2017-08-09] MEDS: chlordiazePOXIDE HCL 25 MG CAPSULE PO PRN (02:00)
[2017-08-09] MEDS: chlordiazePOXIDE 5 MG CAPSULE PO SCH ×3 (06:28→17:55)
[2017-08-09] MEDS: PRENATAL VITAMINS W/ FOLIC ACID TABLET (FP) PO SCH (11:00)
[2017-08-09] MEDS: NICOTINE 21 MG/24 HOURS TOPICAL PATCH TD SCH (11:01)
--- NOTE | 2017-08-09 12:38 | PN ---
S Progress Note (SOAP) Subjective: ALERT,INTERRUPTED SLEEP, Objective: 08/09/17 12:37 Vital Signs Temperature 97.3 F L 08/09/17 10:00 Pulse Rate 77 08/09/17 10:00 Respiratory Rate 18 08/09/17 10:00 Blood Pressure 147/87 08/09/17 10:00 O2 Sat by Pulse Oximetry (%) Assessment: 08/09/17 12:37 WITHDRAWAL SYMPTOM Plan: CONTINUE DETOX,DISCHARGE IN AM
[2017-08-09] MEDS: THIAMINE HCL 100 MG TABLET (FP) PO SCH (22:57)
[2017-08-09] MEDS: chlordiazePOXIDE HCL 10 MG CAPSULE PO SCH (22:57)
[2017-08-10] MEDS: chlordiazePOXIDE HCL 10 MG CAPSULE PO SCH (05:46)
[2017-08-10 07:59] VITALS: BP 116/68; PULSE 75; TEMP 97.5
--- NOTE | 2017-08-10 09:19 | DS ---
[facility] Detox Discharge Summary Admission Date: 08/06/17 Discharge Date: 08/10/17 - History Present History: Alcohol Dependence - Physical Exam Results Vital Signs: Vital Signs Temperature 97.5 F L 08/10/17 07:58 Pulse Rate 75 08/10/17 07:58 Respiratory Rate 18 08/10/17 07:58 Blood Pressure 116/68 08/10/17 07:58 O2 Sat by Pulse Oximetry (%) Pertinent Admission Physical Exam Findings: withdrawal sx Laboratory Last Values WBC 5.8 K/mm3 (4.0-10.0) D 08/07/17 07:00 RBC 4.44 M/mm3 (4.00-5.60) 08/07/17 07:00 Hgb 14.6 GM/dL (11.7-16.9) 08/07/17 07:00 Hct 41.3 % (35.4-49) 08/07/17 07:00 MCV 93.2 fl (80-96) 08/07/17 07:00 MCH 33.0 pg (25.7-33.7) 08/07/17 07:00 MCHC 35.4 g/dl (32.0-35.9) 08/07/17 07:00 RDW 13.5 % (11.9-15.9) 08/07/17 07:00 Plt Count 207 K/MM3 (134-434) 08/07/17 07:00 MPV 8.2 fl (7.5-11.1) D 08/07/17 07:00 Sodium 136 mmol/L (136-145) 08/07/17 07:00 Potassium 3.5 mmol/L (3.5-5.1) 08/07/17 07:00 Chloride 101 mmol/L (98-107) 08/07/17 07:00 Carbon Dioxide 27 mmol/L (21-32) 08/07/17 07:00 Anion Gap 8 (8-16) 08/07/17 07:00 BUN 11 mg/dL (7-18) 08/07/17 07:00 Creatinine 0.7 mg/dL (0.7-1.3) 08/07/17 07:00 Creat Clearance w eGFR > 60 (>60) 08/07/17 07:00 Random Glucose 105 mg/dL (74-106) D 08/07/17 07:00 Calcium 7.5 mg/dL (8.5-10.1) L 08/07/17 07:00 Total Bilirubin 0.4 mg/dL (0.2-1.0) D 08/07/17 07:00 AST 47 U/L (15-37) H D 08/07/17 07:00 ALT 48 U/L (12-78) D 08/07/17 07:00 Alkaline Phosphatase 51 U/L (45-117) D 08/07/17 07:00 Total Protein 6.9 g/dl (6.4-8.2) 08/07/17 07:00 Albumin 3.7 g/dl (3.4-5.0) 08/07/17 07:00 Urine Color Colorless 08/06/17 20:00 Urine Appearance Clear 08/06/17 20:00 Urine pH 7.0 (5.0-8.0) 08/06/17 20:00 Ur Specific [place] 1.004 (1.001-1.035) 08/06/17 20:00 Urine Protein Negative (NEGATIVE) 08/06/17 20:00 Urine Glucose (UA) Negative (NEGATIVE) 08/06/17 20:00 Urine Ketones Negative (NEGATIVE) 08/06/17 20:00 Urine Blood Negative (NEGATIVE) 08/06/17 20:00 Urine Nitrite Negative (NEGATIVE) 08/06/17 20:00 Urine Bilirubin Negative (NEGATIVE) 08/06/17 20:00 Urine Urobilinogen Negative mg/dL (0.2-1.0) 08/06/17 20:00 Ur Leukocyte Esterase Negative (NEGATIVE) 08/06/17 20:00 RPR Titer Nonreactive (NONREACTIVE) 08/07/17 07:00 lab noted - Treatment Hospital Course: Detox Protocol Followed, Detoxed Safely, Responded well, Discharged Condition Good, Rehab Referral Accepted Patient has Accepted a Rehab Referral to: chance for change - Medication Discharge Medications: Ambulatory Orders NK [No Known Home Medication] 07/28/14 NK [No Known Home Medication] 10/29/14 - Diagnosis (1) Alcohol dependence with uncomplicated withdrawal Current Visit: Yes Status: Acute - AMA Did Patient Leave Against Medical Advice: No
== END 2017-08-10 09:37 | disposition home or self-care (01) | DRG 775 ==
LOC: YASAS 16:08 → Y6N 18:59
PROVIDERS: ADMIT Internal Medicine; ATTEND Internal Medicine
PROC: HZ2ZZZZ Detoxification Services for Substance Abuse Treatment (ICD-10-PCS; principal; 2017-08-06)
DX: F10.230 Alcohol dependence with withdrawal, uncomplicated (principal); F17.210 Nicotine dependence, cigarettes, uncomplicated; F32.9 Major depressive disorder, single episode, unspecified; F19.282 Other psychoactive substance dependence with psychoactive substance-induced sleep disorder; I10 Essential (primary) hypertension; E86.0 Dehydration; Z86.69 Personal history of other diseases of the nervous system and sense organs; Z87.898 Personal history of other specified conditions
CPT/HCPCS: 36415; 80053; 81003; 85027; 86593; 93005; 93010

== ENCOUNTER 2017-11-20 16:13 | Inpatient (IN) | payer OTHER ==
[2017-11-20 16:29] VITALS: BMI 22.4
--- NOTE | 2017-11-20 20:36 | HP ---
CIWA Score - CIWA Score Nausea/Vomitin Muscle Tremors: 2 Anxiety: 3 Agitation: 2 Paroxysmal Sweats: 2 Orientation: 0-Oriented Tacttile Disturbances: 1-Very Mild Itch/Numbness (b/l feet) Auditory Disturbances: 0-None Visual Disturbances: 0-None Headache: 2-Mild CIWA-Ar Total Score: 14 Admission [facility] Chief Complaint: withdrawal symptoms Allergies/Adverse Reactions: Allergies Allergy/AdvReac Type Severity Reaction Status Date / Time No Known Allergies Allergy Verified 11/20/17 17:17 History of Present Illness: 37 yo male with hx of alcohol, THC and marijuana dependence is here seeking detox. PMHX: depression, Insomnia, and anxiety. Denies suicidal / homicidal ideation or hx of suicide attempt. utox positive for benzo, denies recent detox or benzo use. Reports was admitted [place] 11/10/17 -11/12/17 for abdominal pain and dehydration. Reports was at [facility] ED yesterday for alcohol intoxication. Reports hx of seizures related to alcohol use, last episode 6 months ago, as per patient he has frequent black outs, " drink until I black out." As per patient last detox at [facility] one and half months ago. Longest period sobriety 4 months. #: [id number] Others' Prescriptions Patient Name: Cory Garces Date: 1980 Address: [address] [place] [address] Sex: Male Rx Written Rx Dispensed Drug Quantity Days Supply Prescriber Name 04/17/2017 04/17/2017 chlordiazepoxide 25 mg capsule 6 3 Tom West MD Exam Limitations: No Limitations - Ebola screening Have you traveled outside of the country in the last 21 days: No Have you had contact with anyone from an Ebola affected area: No Have you been sick,other than usual withdrawal symptoms: No Do you have a fever: No - Review of Systems Constitutional: Chills, Loss of Appetite, Changes in sleep, Unintentional Wgt. Loss EENT: reports: No Symptoms Reported Respiratory: reports: No Symptoms reported Cardiac: reports: No Symptoms Reported GI: reports: Diarrhea, Poor Fluid Intake : reports: No Symptoms Reported Musculoskeletal: reports: No Symptoms Reported Integumentary: reports: No Symptoms Reported Neuro: reports: Headache, Seizure (last episode 6 months ago) Endocrine: reports: Increased Thirst Hematology: reports: No Symptoms Reported Psychiatric: reports: Orientated x3, Depressed Other Systems: Reviewed and Negative Patient History - Patient Medical History Hx Anemia: No Hx Asthma: No Hx Chronic Obstructive Pulmonary Disease (COPD): No Hx Cancer: No Hx Cardiac Disorders: No Hx Congestive Heart Failure: No Hx Hypertension: Yes (not on meds ) Hx Hypercholesterolemia: No Hx Pacemaker: No HX Cerebrovascular Accident: No Hx Seizures: Yes (childhood seizures, reports last episode 6 months ago ) Hx Dementia: No Hx Diabetes: No Hx Gastrointestinal Disorders: No Hx Liver Disease: No Hx Genitourinary Disorders: No Hx Sexually Transmitted Disorders: No Hx Renal Disease (ESRD): No Hx Thyroid Disease: No Hx Human Immunodeficiency Virus (HIV): No (NEGATIVE HX) Hx Hepatitis C: No Hx Depression: Yes Hx Suicide Attempt: No (DENIES) Hx Bipolar Disorder: Yes Hx Schizophrenia: No - Patient Surgical History Past Surgical History: No Hx Neurologic Surgery: No Hx Cataract Extraction: No Hx Cardiac Surgery: No Hx Lung Surgery: No Hx Breast Surgery: No Hx Breast Biopsy: No Hx Abdominal Surgery: No Hx Appendectomy: No Hx Cholecystectomy: No Hx Genitourinary Surgery: No Hx Orthopedic Surgery: No Anesthesia Reaction: No - PPD History Previous Implant?: Yes Documented Results: Negative w/proof Date: 08/08/17 Results: 0 mm PPD to be Administered?: No - Smoking Cessation Smoking history: Current every day smoker Have you smoked in the past 12 months: Yes Aproximately how many cigarettes per day: 10 Hx Chewing Tobacco Use: No Initiated information on smoking cessation: Yes 'Breaking Loose' booklet given: 11/20/17 - Substance & Tx. History Hx Alcohol Use: Yes Hx Substance Use: Yes Substance Use Type: Alcohol, Marijuana Hx Substance Use Treatment: No - Substances Abused Alcohol Route: Oral Frequency: Daily Amount used: liquor-3 pints, beer- beer- 1 Age of first use: 19 Date of Last Use: 11/20/17 Marijuana/Hashish Route: Smoking Frequency: Daily Amount used: 3 blunts Age of first use: 19 Date of Last Use: 11/19/17 Family Disease History - Family Disease History Family Disease History: Other: Father (unknown), Mother (alive and well ) Admission Physical Exam BHS - Vital Signs Vital Signs: Vital Signs - 24 hr 11/20/17 16:27 Temperature 98.9 F Pulse Rate 97 H Respiratory 18 Rate Blood Pressure 135/80 - Physical General Appearance: Yes: Mild Distress, Thin, Tremorous, Irritable, Anxious HEENTM: Yes: EOMI, Hearing grossly Normal, Normal ENT Inspection, Normocephalic , Normal Voice, [place], Pharynx Normal, Tm's normal Respiratory: Yes: Chest Non-Tender, Lungs Clear, Normal Breath Sounds, No Respiratory Distress, No Accessory Muscle Use Neck: Yes: Within Normal Limits Breast: Yes: Breast Exam Deferred Cardiology: Yes: Regular Rhythm, Regular Rate Abdominal: Yes: Normal Bowel Sounds, Non Tender, Flat Genitourinary: Yes: Within Normal Limits Back: Yes: Normal Inspection Musculoskeletal: Yes: full range of Motion, Gait Steady, Pelvis Stable Extremities: Yes: Normal Capillary Refill, Normal Inspection, Normal Range of Motion, Tremors 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, Fully Oriented, Alert, Motor Strength 5/5 Integumentary: Yes: Normal Color, Warm Lymphatic: Yes: Within Normal Limits - Diagnostic (1) Alcohol dependence with uncomplicated withdrawal Current Visit: No Status: Acute (2) Cannabis dependence, uncomplicated Current Visit: No Status: Acute (3) Dehydration Current Visit: No Status: Acute (4) Depressed affect Current Visit: No Status: Acute Cleared for Admission [facility] - Detox or Rehab [facility] Level of Care: Medically Managed Detox Regimen/Protocol: Librium [facility] Breath Alcohol Content Breath Alcohol Content: 0.106 Urine Drug Screen - Results Drug Screen Negative: No Urine Drug Screen Results: THC-Marijuana, BZO-Benzodiazepines
[2017-11-20] MEDS ORDERED: IBUPROFEN 400 MG TABLET (FP) PO PRN (20:49)
[2017-11-20] MEDS ORDERED: guaiFENesin/D-METHORPHAN HB 10 ML UNIT-DOSE CUPS PO PRN (20:49)
[2017-11-20] MEDS ORDERED: MENTHOL/PHENOL 1 EACH UD MM PRN (20:49)
[2017-11-20] MEDS ORDERED: chlordiazePOXIDE HCL 25 MG CAPSULE PO ONE (20:49)
[2017-11-20] MEDS ORDERED: MAG HYDROX/AL HYDROX/SIMETH 30 ML UNIT-DOSE CUP PO PRN (20:49)
[2017-11-20] MEDS ORDERED: chlordiazePOXIDE HCL 25 MG CAPSULE PO PRN (20:49)
[2017-11-20] MEDS ORDERED: MAGNESIUM CITRATE 300 ML BOTTLE PO PRN (20:49)
[2017-11-20] MEDS ORDERED: LOPERAMIDE HCL 2 MG CAPSULE PO PRN (20:49)
[2017-11-20] MEDS ORDERED: hydrOXYzine PAMOATE 50 MG CAPSULE (FP) PO PRN (20:49)
[2017-11-20] MEDS ORDERED: NICOTINE POLACRILEX 2 MG GUM BUC PRN (20:49)
[2017-11-20] MEDS ORDERED: MAGNESIUM HYDROX 2400MG/30ML ORAL SUSPENSION 30 ML CUP PO PRN (20:49)
[2017-11-20] MEDS ORDERED: P-EPHED 60MG/TRIPROLIDI 2.5MG TABLET PO PRN (20:49)
[2017-11-20] MEDS ORDERED: ACETAMINOPHEN 325 MG TABLET (FP) PO PRN (20:55)
[2017-11-20] MEDS ORDERED: MELATONIN 5 MG TABLETS PO PRN (22:00)
[2017-11-20] MEDS: THIAMINE HCL 100 MG TABLET (FP) PO SCH (22:22)
[2017-11-20] MEDS: chlordiazePOXIDE HCL 25 MG CAPSULE PO SCH (22:22)
[2017-11-21] MEDS: chlordiazePOXIDE HCL 25 MG CAPSULE PO SCH ×4 (05:43→22:33)
[2017-11-21 08:17] LABS: URINE APPEARANCE CLEAR; URINE BILIRUBIN NEGATIVE (<2.0 mg/dL); URINE COLOR DKYELLOW; URINE GLUCOSE (UA) NEGATIVE (NEGATIVE); URINE KETONE 1+ (NEGATIVE); URINE LEUK ESTERASE NEGATIVE (NEGATIVE); URINE NITRITE NEGATIVE (NEGATIVE); URINE UROBILINOGEN 4.0 E.U/dl mg/dL (0.2-1.0)
[2017-11-21 08:43] LABS: URINE PROTEIN 1+ (NEGATIVE)
[2017-11-21 08:45] LABS: EPI CELLS RARE /HPF (FEW); URINE MUCUS RARE
--- NOTE | 2017-11-21 09:48 | EKG ---
Test Reason : Blood Pressure : / mmHG Vent. Rate : 101 BPM Atrial Rate : 101 BPM P-R Int : 144 ms QRS Dur : 086 ms QT Int : 322 ms P-R-T Axes : 052 039 021 degrees QTc Int : 417 ms SINUS TACHYCARDIA NONSPECIFIC ST ABNORMALITY WHEN COMPARED WITH ECG OF 06-AUG-2017 20:10, NO SIGNIFICANT CHANGE WAS FOUND Confirmed by MARIVEL FOUNTAIN MD ([id number]) on 11/21/2017 9:47:41 AM Referred By: Confirmed By:MARIVEL FOUNTAIN MD
[2017-11-21 09:54] LABS: HEMATOCRIT 42.8 % (35.4-49); HEMOGLOBIN 15.2 GM/dL (11.7-16.9); MCH 32.5 pg (25.7-33.7); MCHC 35.5 g/dl (32.0-35.9); MEAN CELL VOLUME 91.5 fl (80-96); MEAN PLT VOLUME 8.7 fl (7.5-11.1); PLATELET COUNT 144 K/MM3 (134-434); RBC 4.68 M/mm3 (4.00-5.60); RDW 13.7 % (11.9-15.9); WHITE BLOOD COUNT 4.5 K/mm3 (4.0-10.0)
[2017-11-21 10:02] LABS: CHLORIDE 100 mmol/L (98-107); POTASSIUM 3.4 mmol/L (3.5-5.1); SODIUM 138 mmol/L (136-145)
[2017-11-21 10:54] LABS: ALBUMIN 3.8 g/dl (3.4-5.0); ALK PHOS 57 U/L (45-117); ANION GAP 9 (8-16); BILIRUBIN,TOTAL 0.6 mg/dL (0.2-1.0); BLOOD UREA NITROGEN 8 mg/dL (7-18); CALCIUM 8.7 mg/dL (8.5-10.1); CO2 29 mmol/L (21-32); CREATININE 0.7 mg/dL (0.7-1.3); GLUCOSE,RANDOM 91 mg/dL (74-106); SGOT/AST 279 U/L (15-37); TOT PROT 7.3 g/dl (6.4-8.2)
[2017-11-21 10:56] LABS: SGPT/ALT 458 U/L (12-78)
[2017-11-21] MEDS: PRENATAL VITAMINS W/ FOLIC ACID TABLET (FP) PO SCH (11:05)
[2017-11-21] MEDS: NICOTINE 21 MG/24 HOURS TOPICAL PATCH TD SCH (11:06)
--- NOTE | 2017-11-21 11:28 | PN ---
S CIWA - CIWA Score Nausea/Vomitin-No Nausea/No Vomiting Muscle Tremors: 4-Moderate,w/Arms Extend Anxiety: 4-Mod. Anxious/Guarded Agitation: 4-Moderately Restless Paroxysmal Sweats: 1-Minimal Palms Moist Orientation: 0-Oriented Tacttile Disturbances: 3-Moderate Itch/Numb/Burn Auditory Disturbances: 0-None Visual Disturbances: 0-None Headache: 0-None Present CIWA-Ar Total Score: 16 BHS Progress Note (SOAP) Subjective: ANXIETY,TREMORS, PAIN ON FEET-STATES HX ARTHRITIS ON FEET, CHILLS,SWEATS, INTERMITTENT SLEEP Objective: 11/21/17 11:26 Vital Signs 11/21/17 11/21/17 11/21/17 04:00 04:30 05:00 Temperature Pulse Rate 80 76 73 Respiratory 18 18 18 Rate Blood Pressure 11/21/17 11/21/17 11/21/17 05:30 06:00 06:30 Temperature Pulse Rate 73 73 74 Respiratory 18 18 18 Rate Blood Pressure 11/21/17 11/21/17 11/21/17 07:00 07:18 07:30 Temperature 97.7 F Pulse Rate 74 73 72 Respiratory 18 18 18 Rate Blood Pressure 139/80 11/21/17 11/21/17 08:00 10:01 Temperature 97.7 F Pulse Rate 73 72 Respiratory 18 16 Rate Blood Pressure 139/77 Laboratory Tests 11/20/17 11/21/17 11/21/17 23:00 08:00 08:00 WBC 4.5 RBC 4.68 Hgb 15.2 Hct 42.8 MCV 91.5 MCH 32.5 MCHC 35.5 RDW 13.7 Plt Count 144 D MPV 8.7 Sodium 138 Potassium 3.4 L Chloride 100 Carbon Dioxide 29 Anion Gap 9 BUN 8 D Creatinine 0.7 Creat Clearance w eGFR > 60 Random Glucose 91 Calcium 8.7 Total Bilirubin 0.6 D AST 279 H D ALT 458 H D Alkaline Phosphatase 57 Total Protein 7.3 Albumin 3.8 Urine Color Dkyellow Urine Appearance Clear Urine pH 6.0 Ur Specific [place] 1.025 Urine Protein 1+ H Urine Glucose (UA) Negative Urine Ketones 1+ H Urine Blood Negative Urine Nitrite Negative Urine Bilirubin Negative Urine Urobilinogen 4.0 e.u/dl Ur Leukocyte Esterase Negative Urine WBC (Auto) 2 Urine RBC (Auto) 1 Ur Epithelial Cells Rare Urine Mucus Rare K+ = 3.4 LABS NOTED. Assessment: 11/21/17 11:27 WITHDRAWAL SX Plan: CONTINUE DETOX REPEAT CMP ON 11/23/17
[2017-11-21] MEDS ORDERED: POTASSIUM CHLORIDE TABS 20 MEQ TABLET.ER (FP) PO ONE (11:50)
--- NOTE | 2017-11-21 13:44 | CONSULT ---
[facility] Psychiatric Consult - Data Date of interview: 11/21/17 Admission source: [facility] Identifying data: Patient is a 37 year old single male, father of three, unemployed, and currently homeless. This is one of multiple admissions for patient. Pt. admitted to for alcohol and marijuana dependence. Substance Abuse History: Smoking Cessation. Smoking history: Current every day smoker. Have you smoked in the past 12 months: Yes. Aproximately how many cigarettes per day: 10. Hx Chewing Tobacco Use: No. Initiated information on smoking cessation: Yes. 'Breaking Loose' booklet given: 11/20/17. - Substance & Tx. History. Hx Alcohol Use: Yes. Hx Substance Use: Yes. Substance Use Type : Alcohol, Marijuana. Hx Substance Use Treatment: No. - Substances Abused. * * Alcohol. Route: Oral. Frequency: Daily. Amount used: liquor-3 pints, beer- beer- 1. Age of first use: 19. Date of Last Use: 11/20/17. Marijuana/ Hashish. Route: Smoking. Frequency: Daily. Amount used: 3 blunts. Age of first use: 19. Date of Last Use: 11/19/17 Medical History: hypertension, seizures Psychiatric History: Patient denies h/o psychiatric hospitalization, outpatient care, and suicide attempt. Physical/Sexual Abuse/Trauma History: Denies. Mental Status Exam - Mental Status Exam Alert and Oriented to: Time, Place, Person Cognitive Function: Good Patient Appearance: Well Groomed Mood: Hopeful, Euthymic Affect: Mood Congruent Patient Behavior: Cooperative Speech Pattern: Appropriate Voice Loudness: Normal Thought Process: Intact, Goal Oriented Thought Disorder: Not Present Hallucinations: Denies Suicidal Ideation: Denies Homicidal Ideation: Denies Insight/Judgement: Poor Sleep: Fair Appetite: Fair Muscle strength/Tone: Normal Gait/Station: Normal Psychiatric Findings - Problem List ([place] 1, 2,3) (1) Alcohol dependence with uncomplicated withdrawal Current Visit: Yes Status: Acute (2) Cannabis dependence, uncomplicated Current Visit: Yes Status: Acute (3) Substance-induced sleep disorder Current Visit: Yes Status: Acute - Initial Treatment Plan Initial Treatment Plan: Psychoeducation provided. Detoxification in progress. Ambien 10mg qhs ordered. Benefits and side effects discussed. Pt. made aware of the risk of parasomnia when accepting ambien. Verbal consent given.
[2017-11-21] MEDS: ZOLPIDEM TARTRATE 10 MG TABLET (PARK CARE ONLY) PO PRN (22:32)
[2017-11-21] MEDS: THIAMINE HCL 100 MG TABLET (FP) PO SCH (22:32)
[2017-11-21] MEDS: POTASSIUM CHLORIDE TABS 20 MEQ TABLET.ER (FP) PO SCH (22:33)
[2017-11-22] MEDS: chlordiazePOXIDE HCL 25 MG CAPSULE PO SCH ×3 (05:42→17:45)
[2017-11-22] MEDS: PRENATAL VITAMINS W/ FOLIC ACID TABLET (FP) PO SCH (10:13)
[2017-11-22] MEDS: POTASSIUM CHLORIDE TABS 20 MEQ TABLET.ER (FP) PO SCH ×2 (10:13→22:06)
[2017-11-22] MEDS: NICOTINE 21 MG/24 HOURS TOPICAL PATCH TD SCH (10:14)
--- NOTE | 2017-11-22 20:58 | PN ---
S CIWA - CIWA Score Nausea/Vomitin Muscle Tremors: 3 Anxiety: 3 Agitation: 3 Paroxysmal Sweats: 3 Orientation: 0-Oriented Tacttile Disturbances: 0-None Auditory Disturbances: 0-None Visual Disturbances: 0-None Headache: 0-None Present CIWA-Ar Total Score: 14 BHS Progress Note (SOAP) Subjective: Sweats Shakes Sleep disturbance Objective: 11/22/17 20:57 A & O x 3, ambulating in hallway Vital Signs Temperature 98.2 F 11/22/17 18:33 Pulse Rate 75 11/22/17 18:33 Respiratory Rate 18 11/22/17 18:33 Blood Pressure 138/67 11/22/17 18:33 O2 Sat by Pulse Oximetry (%) Assessment: 11/22/17 20:57 withdrawal sx Plan: continue detox
[2017-11-22] MEDS: ZOLPIDEM TARTRATE 10 MG TABLET (PARK CARE ONLY) PO PRN (22:06)
[2017-11-22] MEDS: THIAMINE HCL 100 MG TABLET (FP) PO SCH (22:06)
[2017-11-22] MEDS: chlordiazePOXIDE 5 MG CAPSULE PO SCH (22:06)
[2017-11-23] MEDS: chlordiazePOXIDE 5 MG CAPSULE PO SCH ×3 (05:52→17:02)
[2017-11-23] MEDS: POTASSIUM CHLORIDE TABS 20 MEQ TABLET.ER (FP) PO SCH ×2 (10:10→22:23)
[2017-11-23] MEDS: PRENATAL VITAMINS W/ FOLIC ACID TABLET (FP) PO SCH (10:10)
[2017-11-23] MEDS: NICOTINE 21 MG/24 HOURS TOPICAL PATCH TD SCH (10:11)
[2017-11-23 10:38] LABS: ALBUMIN 4.1 g/dl (3.4-5.0); ANION GAP 9 (8-16); BLOOD UREA NITROGEN 12 mg/dL (7-18); CALCIUM 9.2 mg/dL (8.5-10.1); CHLORIDE 104 mmol/L (98-107); CO2 26 mmol/L (21-32); GLUCOSE,RANDOM 91 mg/dL (74-106); POTASSIUM 4.1 mmol/L (3.5-5.1); SODIUM 139 mmol/L (136-145)
[2017-11-23 10:43] LABS: ALK PHOS 59 U/L (45-117); BILIRUBIN,TOTAL 0.5 mg/dL (0.2-1.0); CREATININE 0.8 mg/dL (0.7-1.3); SGOT/AST 219 U/L (15-37); TOT PROT 7.8 g/dl (6.4-8.2)
[2017-11-23 10:48] LABS: SGPT/ALT 435 U/L (12-78)
--- NOTE | 2017-11-23 13:45 | PN ---
BHS Progress Note (SOAP) Subjective: FEELING BETTER NO TREMOR LESS SWEAT SOCIAL WITH PEERS IN DAY ROOM TALKING ABOUT AFTERCARE Objective: 11/23/17 13:47 Vital Signs Temperature 97.7 F 11/23/17 09:50 Pulse Rate 83 11/23/17 09:50 Respiratory Rate 20 11/23/17 09:50 Blood Pressure 142/98 11/23/17 09:50 O2 Sat by Pulse Oximetry (%) Laboratory Last Values WBC 4.5 K/mm3 (4.0-10.0) 11/21/17 08:00 RBC 4.68 M/mm3 (4.00-5.60) 11/21/17 08:00 Hgb 15.2 GM/dL (11.7-16.9) 11/21/17 08:00 Hct 42.8 % (35.4-49) 11/21/17 08:00 MCV 91.5 fl (80-96) 11/21/17 08:00 MCH 32.5 pg (25.7-33.7) 11/21/17 08:00 MCHC 35.5 g/dl (32.0-35.9) 11/21/17 08:00 RDW 13.7 % (11.9-15.9) 11/21/17 08:00 Plt Count 144 K/MM3 (134-434) D 11/21/17 08:00 MPV 8.7 fl (7.5-11.1) 11/21/17 08:00 Sodium 139 mmol/L (136-145) 11/23/17 07:00 Potassium 4.1 mmol/L (3.5-5.1) D 11/23/17 07:00 Chloride 104 mmol/L (98-107) 11/23/17 07:00 Carbon Dioxide 26 mmol/L (21-32) 11/23/17 07:00 Anion Gap 9 (8-16) 11/23/17 07:00 BUN 12 mg/dL (7-18) D 11/23/17 07:00 Creatinine 0.8 mg/dL (0.7-1.3) 11/23/17 07:00 Creat Clearance w eGFR > 60 (>60) 11/23/17 07:00 Random Glucose 91 mg/dL (74-106) 11/23/17 07:00 Calcium 9.2 mg/dL (8.5-10.1) 11/23/17 07:00 Total Bilirubin 0.5 mg/dL (0.2-1.0) 11/23/17 07:00 AST 219 U/L (15-37) H D 11/23/17 07:00 ALT 435 U/L (12-78) H 11/23/17 07:00 Alkaline Phosphatase 59 U/L (45-117) 11/23/17 07:00 Total Protein 7.8 g/dl (6.4-8.2) 11/23/17 07:00 Albumin 4.1 g/dl (3.4-5.0) 11/23/17 07:00 Urine Color Dkyellow 11/20/17 23:00 Urine Appearance Clear 11/20/17 23:00 Urine pH 6.0 (5.0-8.0) 11/20/17 23:00 Ur Specific [place] 1.025 (1.001-1.035) 11/20/17 23:00 Urine Protein 1+ (NEGATIVE) H 11/20/17 23:00 Urine Glucose (UA) Negative (NEGATIVE) 11/20/17 23:00 Urine Ketones 1+ (NEGATIVE) H 11/20/17 23:00 Urine Blood Negative (NEGATIVE) 11/20/17 23:00 Urine Nitrite Negative (NEGATIVE) 11/20/17 23:00 Urine Bilirubin Negative (<2.0 mg/dL) 11/20/17 23:00 Urine Urobilinogen 4.0 e.u/dl mg/dL (0.2-1.0) 11/20/17 23:00 Ur Leukocyte Esterase Negative (NEGATIVE) 11/20/17 23:00 Urine WBC (Auto) 2 /hpf (3-5) 11/20/17 23:00 Urine RBC (Auto) 1 /hpf (0-3) 11/20/17 23:00 Ur Epithelial Cells Rare /HPF (FEW) 11/20/17 23:00 Urine Mucus Rare 11/20/17 23:00 RPR Titer Nonreactive (NONREACTIVE) 11/21/17 08:00 HIV 1&2 Antibody Screen Negative 11/21/17 10:20 HIV P24 Antigen Negative 11/21/17 10:20 LAB NOTED REPEAT AST ALT Assessment: 11/23/17 13:48 MILD WITHDRAWAL SX ELEVATION OF LIVER ENZYME Plan: MEDICALLY SUPERVISED DETOX REPEAT AST ALT
[2017-11-23] MEDS: ZOLPIDEM TARTRATE 10 MG TABLET (PARK CARE ONLY) PO PRN (22:23)
[2017-11-23] MEDS: THIAMINE HCL 100 MG TABLET (FP) PO SCH (22:23)
[2017-11-23] MEDS: chlordiazePOXIDE HCL 10 MG CAPSULE PO SCH (22:23)
[2017-11-24] MEDS: chlordiazePOXIDE HCL 10 MG CAPSULE PO SCH (05:44)
[2017-11-24 06:58] VITALS: BP 141/90; PULSE 65; TEMP 97.3
[2017-11-24] MEDS: POTASSIUM CHLORIDE TABS 20 MEQ TABLET.ER (FP) PO SCH (10:26)
[2017-11-24] MEDS: PRENATAL VITAMINS W/ FOLIC ACID TABLET (FP) PO SCH (10:26)
[2017-11-24 11:28] LABS: SGOT/AST 257 U/L (15-37); SGPT/ALT 529 U/L (12-78)
[2017-11-24] MEDS: NICOTINE 21 MG/24 HOURS TOPICAL PATCH TD SCH (11:56)
--- NOTE | 2017-11-24 13:14 | DS ---
[facility] Detox Discharge Summary Admission Date: 11/20/17 Discharge Date: 11/24/17 - History Present History: Alcohol Dependence Additional Comments: 37 years old male admitted 11/20/17 for alcohol withdrawal sx completed alcohol detox regimen tolerated well denies alcohol withdrawal sx alert oriented x 3 no acute distress after[facility] - Physical Exam Results Vital Signs: Vital Signs Temperature 97.3 F L 11/24/17 06:57 Pulse Rate 65 11/24/17 06:57 Respiratory Rate 18 11/24/17 06:57 Blood Pressure 141/90 11/24/17 06:57 O2 Sat by Pulse Oximetry (%) Pertinent Admission Physical Exam Findings: alcohol withdrawal sx Vital Signs Temperature 97.3 F L 11/24/17 06:57 Pulse Rate 65 11/24/17 06:57 Respiratory Rate 18 11/24/17 06:57 Blood Pressure 141/90 11/24/17 06:57 O2 Sat by Pulse Oximetry (%) Laboratory Last Values WBC 4.5 K/mm3 (4.0-10.0) 11/21/17 08:00 RBC 4.68 M/mm3 (4.00-5.60) 11/21/17 08:00 Hgb 15.2 GM/dL (11.7-16.9) 11/21/17 08:00 Hct 42.8 % (35.4-49) 11/21/17 08:00 MCV 91.5 fl (80-96) 11/21/17 08:00 MCH 32.5 pg (25.7-33.7) 11/21/17 08:00 MCHC 35.5 g/dl (32.0-35.9) 11/21/17 08:00 RDW 13.7 % (11.9-15.9) 11/21/17 08:00 Plt Count 144 K/MM3 (134-434) D 11/21/17 08:00 MPV 8.7 fl (7.5-11.1) 11/21/17 08:00 Sodium 139 mmol/L (136-145) 11/23/17 07:00 Potassium 4.1 mmol/L (3.5-5.1) D 11/23/17 07:00 Chloride 104 mmol/L (98-107) 11/23/17 07:00 Carbon Dioxide 26 mmol/L (21-32) 11/23/17 07:00 Anion Gap 9 (8-16) 11/23/17 07:00 BUN 12 mg/dL (7-18) D 11/23/17 07:00 Creatinine 0.8 mg/dL (0.7-1.3) 11/23/17 07:00 Creat Clearance w eGFR > 60 (>60) 11/23/17 07:00 Random Glucose 91 mg/dL (74-106) 11/23/17 07:00 Calcium 9.2 mg/dL (8.5-10.1) 11/23/17 07:00 Total Bilirubin 0.5 mg/dL (0.2-1.0) 11/23/17 07:00 AST 257 U/L (15-37) H 11/24/17 06:50 ALT 529 U/L (12-78) H D 11/24/17 06:50 Alkaline Phosphatase 59 U/L (45-117) 11/23/17 07:00 Total Protein 7.8 g/dl (6.4-8.2) 11/23/17 07:00 Albumin 4.1 g/dl (3.4-5.0) 11/23/17 07:00 Urine Color Dkyellow 11/20/17 23:00 Urine Appearance Clear 11/20/17 23:00 Urine pH 6.0 (5.0-8.0) 11/20/17 23:00 Ur Specific [place] 1.025 (1.001-1.035) 11/20/17 23:00 Urine Protein 1+ (NEGATIVE) H 11/20/17 23:00 Urine Glucose (UA) Negative (NEGATIVE) 11/20/17 23:00 Urine Ketones 1+ (NEGATIVE) H 11/20/17 23:00 Urine Blood Negative (NEGATIVE) 11/20/17 23:00 Urine Nitrite Negative (NEGATIVE) 11/20/17 23:00 Urine Bilirubin Negative (<2.0 mg/dL) 11/20/17 23:00 Urine Urobilinogen 4.0 e.u/dl mg/dL (0.2-1.0) 11/20/17 23:00 Ur Leukocyte Esterase Negative (NEGATIVE) 11/20/17 23:00 Urine WBC (Auto) 2 /hpf (3-5) 11/20/17 23:00 Urine RBC (Auto) 1 /hpf (0-3) 11/20/17 23:00 Ur Epithelial Cells Rare /HPF (FEW) 11/20/17 23:00 Urine Mucus Rare 11/20/17 23:00 RPR Titer Nonreactive (NONREACTIVE) 11/21/17 08:00 HIV 1&2 Antibody Screen Negative 11/21/17 10:20 HIV P24 Antigen Negative 11/21/17 10:20 lab note - Treatment Hospital Course: Detox Protocol Followed, Detoxed Safely, Responded well, Discharged Condition Good, Rehab Referral Accepted Patient has Accepted a Re[facility] Referral to: [facility] - Medication Discharge Medications: Ambulatory Orders Trazodone HCl 100 mg PO HS 11/20/17 - Diagnosis (1) Alcohol dependence with uncomplicated withdrawal Status: Acute (2) Weight loss Status: Acute - AMA Did Patient Leave Against Medical Advice: No
== END 2017-11-24 11:31 | disposition home or self-care (01) | DRG 774 ==
LOC: YASAS 16:13 → Y6N 19:05
PROVIDERS: ADMIT Family Medicine Addiction Medicine; ATTEND Family Medicine Addiction Medicine
PROC: HZ2ZZZZ Detoxification Services for Substance Abuse Treatment (ICD-10-PCS; principal; 2017-11-20)
DX: F10.230 Alcohol dependence with withdrawal, uncomplicated (principal); F14.20 Cocaine dependence, uncomplicated; F12.20 Cannabis dependence, uncomplicated; F17.210 Nicotine dependence, cigarettes, uncomplicated; F19.282 Other psychoactive substance dependence with psychoactive substance-induced sleep disorder; F32.9 Major depressive disorder, single episode, unspecified; E86.0 Dehydration; R94.5 Abnormal results of liver function studies; R19.7 Diarrhea, unspecified; Z86.69 Personal history of other diseases of the nervous system and sense organs; Z87.898 Personal history of other specified conditions
CPT/HCPCS: 36415; 80053; 81003; 81015; 84450; 84460; 85027; 86593; 87389; 93005; 93010

== ENCOUNTER 2018-03-03 13:43 | Inpatient (IN) | payer OTHER ==
[2018-03-03 15:26] VITALS: BMI 24.4
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
[2018-03-03] MEDS ORDERED: chlordiazePOXIDE HCL 25 MG CAPSULE PO PRN (16:09)
[2018-03-03] MEDS ORDERED: MENTHOL/PHENOL 1 EACH UD MM PRN (16:09)
[2018-03-03] MEDS ORDERED: ACETAMINOPHEN 325 MG TABLET (FP) PO PRN (16:09)
[2018-03-03] MEDS ORDERED: NICOTINE POLACRILEX 2 MG GUM BC PRN (16:09)
[2018-03-03] MEDS ORDERED: IBUPROFEN 400 MG TABLET (FP) PO PRN (16:09)
[2018-03-03] MEDS ORDERED: MAGNESIUM HYDROX 2400MG/30ML ORAL SUSPENSION 30 ML CUP PO PRN (16:09)
[2018-03-03] MEDS ORDERED: LOPERAMIDE HCL 2 MG CAPSULE PO PRN (16:09)
[2018-03-03] MEDS ORDERED: guaiFENesin/D-METHORPHAN HB 10 ML UNIT-DOSE CUPS PO PRN (16:09)
[2018-03-03] MEDS ORDERED: P-EPHED 60MG/TRIPROLIDI 2.5MG TABLET PO PRN (16:09)
[2018-03-03] MEDS ORDERED: MAG HYDROX/AL HYDROX/SIMETH 30 ML UNIT-DOSE CUP PO PRN (16:09)
[2018-03-03] MEDS ORDERED: MAGNESIUM CITRATE 300 ML BOTTLE PO PRN (16:09)
[2018-03-03] MEDS ORDERED: MELATONIN 5 MG TABLETS PO PRN (22:00)
[2018-03-03] MEDS: chlordiazePOXIDE HCL 25 MG CAPSULE PO SCH (22:14)
[2018-03-03] MEDS: THIAMINE HCL 100 MG TABLET (FP) PO SCH (22:16)
[2018-03-04 02:12] LABS: URINE APPEARANCE CLEAR; URINE BILIRUBIN NEGATIVE (<2.0 mg/dL); URINE COLOR AMBER; URINE GLUCOSE (UA) NEGATIVE (NEGATIVE); URINE KETONE 1+ (NEGATIVE); URINE LEUK ESTERASE NEGATIVE (NEGATIVE); URINE NITRITE NEGATIVE (NEGATIVE)
[2018-03-04 02:45] LABS: URINE PROTEIN 1+ (NEGATIVE)
[2018-03-04 02:55] LABS: EPI CELLS RARE /HPF (FEW); URINE MUCUS RARE
[2018-03-04] MEDS: chlordiazePOXIDE HCL 25 MG CAPSULE PO SCH ×4 (05:24→22:01)
[2018-03-04 09:58] LABS: HEMATOCRIT 45.8 % (35.4-49); HEMOGLOBIN 15.6 GM/dL (11.7-16.9); MEAN CELL VOLUME 94.1 fl (80-96); PLATELET COUNT 140 K/MM3 (134-434); RBC 4.87 M/mm3 (4.00-5.60); RDW 13.6 % (11.9-15.9); WHITE BLOOD COUNT 3.8 K/mm3 (4.0-10.0)
[2018-03-04 10:22] LABS: ALBUMIN 3.4 g/dl (3.4-5.0); ALK PHOS 52 U/L (45-117); ANION GAP 11 MMOL/L (8-16); BILIRUBIN,TOTAL 1.2 mg/dL (0.2-1); BLOOD UREA NITROGEN 7 mg/dL (7-18); CALCIUM 8.7 mg/dL (8.5-10.1); CHLORIDE 103 mmol/L (98-107); CO2 25 mmol/L (21-32); CREATININE 0.6 mg/dL (0.55-1.3); GLUCOSE,RANDOM 77 mg/dL (74-106); POTASSIUM 3.5 mmol/L (3.5-5.1); SGOT/AST 85 U/L (15-37); SGPT/ALT 166 U/L (13-61); SODIUM 140 mmol/L (136-145); TOT PROT 6.4 g/dl (6.4-8.2)
[2018-03-04] MEDS: PRENATAL VITAMINS W/ FOLIC ACID TABLET (FP) PO SCH (10:59)
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
--- NOTE | 2018-03-04 21:47 | PN ---
S CIWA - CIWA Score Nausea/Vomitin Muscle Tremors: 1-None Visible, but [place] Anxiety: 0-No Anxiety, at Ease Agitation: 0-Normal Activity Paroxysmal Sweats: No Perspiration Orientation: 0-Oriented Tacttile Disturbances: 0-None Auditory Disturbances: 0-None Visual Disturbances: 0-None Headache: 0-None Present CIWA-Ar Total Score: 3 BHS Progress Note (SOAP) Subjective: PATIENT C/O DIARRHEA AND "SHAKES". Objective: 03/04/18 21:48 Laboratory Tests 03/03/18 03/04/18 03/04/18 20:08 07:30 07:30 WBC 3.8 L RBC 4.87 Hgb 15.6 Hct 45.8 MCV 94.1 MCH 32.0 MCHC 34.0 RDW 13.6 Plt Count 140 MPV 9.0 Sodium 140 Potassium 3.5 Chloride 103 Carbon Dioxide 25 Anion Gap 11 BUN 7 Creatinine 0.6 Creat Clearance w eGFR > 60 Random Glucose 77 Calcium 8.7 Total Bilirubin 1.2 H AST 85 H ALT 166 H Alkaline Phosphatase 52 Total Protein 6.4 Albumin 3.4 Urine Color [place] Urine Appearance Clear Urine pH 6.0 Ur Specific [place] 1.028 Urine Protein 1+ H Urine Glucose (UA) Negative Urine Ketones 1+ H Urine Blood Negative Urine Nitrite Negative Urine Bilirubin Negative Urine Urobilinogen 2.0 Ur Leukocyte Esterase Negative Urine WBC (Auto) 4 Urine RBC (Auto) 9 Ur Epithelial Cells Rare Urine Mucus Rare RPR Titer HIV 1&2 Antibody Screen HIV P24 Antigen 03/04/18 03/04/18 07:30 07:30 WBC RBC Hgb Hct MCV MCH MCHC RDW Plt Count MPV Sodium Potassium Chloride Carbon Dioxide Anion Gap BUN Creatinine Creat Clearance w eGFR Random Glucose Calcium Total Bilirubin AST ALT Alkaline Phosphatase Total Protein Albumin Urine Color Urine Appearance Urine pH Ur Specific [place] Urine Protein Urine Glucose (UA) Urine Ketones Urine Blood Urine Nitrite Urine Bilirubin Urine Urobilinogen Ur Leukocyte Esterase Urine WBC (Auto) Urine RBC (Auto) Ur Epithelial Cells Urine Mucus RPR Titer Nonreactive HIV 1&2 Antibody Screen Negative HIV P24 Antigen Negative ALERT AND ORIENTED SKIN WARM AND DRY CAR S1S2 RESP CTA BL GI SOFT BS+ NT EXT + TREMORS FELT, NO EDEMA Assessment: 03/04/18 21:49 WITHDRAWAL SYNDROME Plan: CONTINUE DETOX ENCOURAGE ORAL FLUIDS CONTINUE TO MONITOR CLINICALLY IMMODIUM ORDERED NEEDED
[2018-03-04] MEDS: THIAMINE HCL 100 MG TABLET (FP) PO SCH (22:00)
[2018-03-04] MEDS: traZODone HCL 100 MG TABLET (FP) PO SCH (22:00)
[2018-03-05] MEDS: chlordiazePOXIDE HCL 25 MG CAPSULE PO SCH ×3 (05:37→17:50)
[2018-03-05] MEDS: PRENATAL VITAMINS W/ FOLIC ACID TABLET (FP) PO SCH (10:44)
--- NOTE | 2018-03-05 11:55 | PN ---
[facility] CIWA - CIWA Score Nausea/Vomitin-No Nausea/No Vomiting Muscle Tremors: None Anxiety: 0-No Anxiety, at Ease Agitation: 1-Slight > Activity Paroxysmal Sweats: No Perspiration Orientation: 0-Oriented Tacttile Disturbances: 0-None Auditory Disturbances: 0-None Visual Disturbances: 0-None Headache: 0-None Present CIWA-Ar Total Score: 1 BHS Progress Note (SOAP) Subjective: Patient noted pacing in hallway. Alert and oriented x 3. In NAD. Objective: 03/05/18 11:52 Laboratory Tests 03/03/18 03/04/18 03/04/18 20:08 07:30 07:30 WBC 3.8 L RBC 4.87 Hgb 15.6 Hct 45.8 MCV 94.1 MCH 32.0 MCHC 34.0 RDW 13.6 Plt Count 140 MPV 9.0 Sodium 140 Potassium 3.5 Chloride 103 Carbon Dioxide 25 Anion Gap 11 BUN 7 Creatinine 0.6 Creat Clearance w eGFR > 60 Random Glucose 77 Calcium 8.7 Total Bilirubin 1.2 H AST 85 H ALT 166 H Alkaline Phosphatase 52 Total Protein 6.4 Albumin 3.4 Urine Color [place] Urine Appearance Clear Urine pH 6.0 Ur Specific [place] 1.028 Urine Protein 1+ H Urine Glucose (UA) Negative Urine Ketones 1+ H Urine Blood Negative Urine Nitrite Negative Urine Bilirubin Negative Urine Urobilinogen 2.0 Ur Leukocyte Esterase Negative Urine WBC (Auto) 4 Urine RBC (Auto) 9 Ur Epithelial Cells Rare Urine Mucus Rare RPR Titer HIV 1&2 Antibody Screen HIV P24 Antigen 03/04/18 03/04/18 07:30 07:30 WBC RBC Hgb Hct MCV MCH MCHC RDW Plt Count MPV Sodium Potassium Chloride Carbon Dioxide Anion Gap BUN Creatinine Creat Clearance w eGFR Random Glucose Calcium Total Bilirubin AST ALT Alkaline Phosphatase Total Protein Albumin Urine Color Urine Appearance Urine pH Ur Specific [place] Urine Protein Urine Glucose (UA) Urine Ketones Urine Blood Urine Nitrite Urine Bilirubin Urine Urobilinogen Ur Leukocyte Esterase Urine WBC (Auto) Urine RBC (Auto) Ur Epithelial Cells Urine Mucus RPR Titer Nonreactive HIV 1&2 Antibody Screen Negative HIV P24 Antigen Negative Vital Signs Temperature 96.8 F L 03/05/18 09:20 Pulse Rate 67 03/05/18 09:20 Respiratory Rate 18 03/05/18 09:20 Blood Pressure 124/82 03/05/18 09:20 O2 Sat by Pulse Oximetry (%) PE: pacing in hallway alert and oriented x 3 car s1s2 resp cta bl ext no edema Assessment: withdrawal syndrome Plan: continue detox encourage oral fluids continue to monitor 03/05/18 11:54
[2018-03-05] MEDS: hydrOXYzine PAMOATE 25 MG CAPSULE (FP) PO PRN ×2 (17:50→22:14)
[2018-03-05] MEDS: THIAMINE HCL 100 MG TABLET (FP) PO SCH (22:13)
[2018-03-05] MEDS: chlordiazePOXIDE 5 MG CAPSULE PO SCH (22:13)
[2018-03-05] MEDS: traZODone HCL 100 MG TABLET (FP) PO SCH (22:22)
[2018-03-06] MEDS: chlordiazePOXIDE 5 MG CAPSULE PO SCH ×3 (06:42→17:34)
[2018-03-06] MEDS: PRENATAL VITAMINS W/ FOLIC ACID TABLET (FP) PO SCH (10:40)
--- NOTE | 2018-03-06 11:14 | EKG ---
Test Reason : Blood Pressure : / mmHG Vent. Rate : 069 BPM Atrial Rate : 069 BPM P-R Int : 174 ms QRS Dur : 092 ms QT Int : 390 ms P-R-T Axes : 033 044 025 degrees QTc Int : 417 ms NORMAL SINUS RHYTHM NORMAL ECG WHEN COMPARED WITH ECG OF 20-NOV-2017 21:52, NONSPECIFIC T WAVE ABNORMALITY NO LONGER EVIDENT IN LATERAL LEADS Confirmed by PARTHA RODRÍGUEZ, NADINE ([id number]) on 03/06/2018 11:14:30 AM Referred By: Confirmed By:NADINE CHAVIS MD
--- NOTE | 2018-03-06 12:15 | PN ---
[facility] Progress Note Note: PATIENT TOLERATING DETOX WELL. NO MEDICAL COMPLAINTS VOICED. IN NAD. Laboratory Tests 03/03/18 03/04/18 03/04/18 20:08 07:30 07:30 WBC 3.8 L RBC 4.87 Hgb 15.6 Hct 45.8 MCV 94.1 MCH 32.0 MCHC 34.0 RDW 13.6 Plt Count 140 MPV 9.0 Sodium 140 Potassium 3.5 Chloride 103 Carbon Dioxide 25 Anion Gap 11 BUN 7 Creatinine 0.6 Creat Clearance w eGFR > 60 Random Glucose 77 Calcium 8.7 Total Bilirubin 1.2 H AST 85 H ALT 166 H Alkaline Phosphatase 52 Total Protein 6.4 Albumin 3.4 Urine Color [place] Urine Appearance Clear Urine pH 6.0 Ur Specific [place] 1.028 Urine Protein 1+ H Urine Glucose (UA) Negative Urine Ketones 1+ H Urine Blood Negative Urine Nitrite Negative Urine Bilirubin Negative Urine Urobilinogen 2.0 Ur Leukocyte Esterase Negative Urine WBC (Auto) 4 Urine RBC (Auto) 9 Ur Epithelial Cells Rare Urine Mucus Rare RPR Titer HIV 1&2 Antibody Screen HIV P24 Antigen 03/04/18 03/04/18 07:30 07:30 WBC RBC Hgb Hct MCV MCH MCHC RDW Plt Count MPV Sodium Potassium Chloride Carbon Dioxide Anion Gap BUN Creatinine Creat Clearance w eGFR Random Glucose Calcium Total Bilirubin AST ALT Alkaline Phosphatase Total Protein Albumin Urine Color Urine Appearance Urine pH Ur Specific [place] Urine Protein Urine Glucose (UA) Urine Ketones Urine Blood Urine Nitrite Urine Bilirubin Urine Urobilinogen Ur Leukocyte Esterase Urine WBC (Auto) Urine RBC (Auto) Ur Epithelial Cells Urine Mucus RPR Titer Nonreactive HIV 1&2 Antibody Screen Negative HIV P24 Antigen Negative Vital Signs Temperature 97.1 F L 03/06/18 09:18 Pulse Rate 71 03/06/18 09:18 Respiratory Rate 16 03/06/18 09:18 Blood Pressure 118/72 03/06/18 09:18 O2 Sat by Pulse Oximetry (%) PE: ALERT AND ORIENTED X 3. SKIN WARM AND DRY CAR S1S2 RESP CTA BL EXT NO EDEMA A/P WITHDRAWAL SYNDROME CONTINUE DETOX ORDERED CONTINUE TO MONITOR CLINICALLY ENCOURAGE ORAL FLUIDS
[2018-03-06 14:49] LABS: URINE APPEARANCE CLEAR; URINE BILIRUBIN NEGATIVE (<2.0 mg/dL); URINE COLOR YELLOW; URINE GLUCOSE (UA) NEGATIVE (NEGATIVE); URINE KETONE NEGATIVE (NEGATIVE); URINE LEUK ESTERASE NEGATIVE (NEGATIVE); URINE NITRITE NEGATIVE (NEGATIVE); URINE PROTEIN NEGATIVE (NEGATIVE); URINE UROBILINOGEN NEGATIVE mg/dL (0.2-1.0)
[2018-03-06] MEDS: hydrOXYzine PAMOATE 25 MG CAPSULE (FP) PO PRN (17:35)
[2018-03-06] MEDS ORDERED: traZODone HCL 100 MG TABLET (FP) PO SCH (22:00)
[2018-03-06] MEDS: THIAMINE HCL 100 MG TABLET (FP) PO SCH (22:04)
[2018-03-06] MEDS: chlordiazePOXIDE HCL 10 MG CAPSULE PO SCH (22:04)
[2018-03-07] MEDS: chlordiazePOXIDE HCL 10 MG CAPSULE PO SCH (06:00)
[2018-03-07 06:18] VITALS: BP 115/72; PULSE 69; TEMP 96.7
--- NOTE | 2018-03-07 09:12 | DS ---
[facility] Detox Discharge Summary Admission Date: 03/03/18 Discharge Date: 03/07/18 - History Present History: Alcohol Dependence, Cannabis Dependence, Cocaine Dependence Pertinent Past History: Seizure disorder, bipolar disorder and depression - Physical Exam Results Vital Signs: Vital Signs Temperature 96.7 F L 03/07/18 06:17 Pulse Rate 69 03/07/18 06:17 Respiratory Rate 16 03/07/18 06:17 Blood Pressure 115/72 03/07/18 06:17 O2 Sat by Pulse Oximetry (%) Pertinent Admission Physical Exam Findings: Withdrawal sx Laboratory Last Values WBC 3.8 K/mm3 (4.0-10.0) L 03/04/18 07:30 RBC 4.87 M/mm3 (4.00-5.60) 03/04/18 07:30 Hgb 15.6 GM/dL (11.7-16.9) 03/04/18 07:30 Hct 45.8 % (35.4-49) 03/04/18 07:30 MCV 94.1 fl (80-96) 03/04/18 07:30 MCH 32.0 pg (25.7-33.7) 03/04/18 07:30 MCHC 34.0 g/dl (32.0-35.9) 03/04/18 07:30 RDW 13.6 % (11.9-15.9) 03/04/18 07:30 Plt Count 140 K/MM3 (134-434) 03/04/18 07:30 MPV 9.0 fl (7.5-11.1) 03/04/18 07:30 Sodium 140 mmol/L (136-145) 03/04/18 07:30 Potassium 3.5 mmol/L (3.5-5.1) 03/04/18 07:30 Chloride 103 mmol/L (98-107) 03/04/18 07:30 Carbon Dioxide 25 mmol/L (21-32) 03/04/18 07:30 Anion Gap 11 MMOL/L (8-16) 03/04/18 07:30 BUN 7 mg/dL (7-18) 03/04/18 07:30 Creatinine 0.6 mg/dL (0.55-1.3) 03/04/18 07:30 Creat Clearance w eGFR > 60 (>60) 03/04/18 07:30 Random Glucose 77 mg/dL (74-106) 03/04/18 07:30 Calcium 8.7 mg/dL (8.5-10.1) 03/04/18 07:30 Total Bilirubin 1.2 mg/dL (0.2-1) H 03/04/18 07:30 AST 85 U/L (15-37) H 03/04/18 07:30 ALT 166 U/L (13-61) H 03/04/18 07:30 Alkaline Phosphatase 52 U/L (45-117) 03/04/18 07:30 Total Protein 6.4 g/dl (6.4-8.2) 03/04/18 07:30 Albumin 3.4 g/dl (3.4-5.0) 03/04/18 07:30 Urine Color Yellow 03/06/18 13:00 Urine Appearance Clear 03/06/18 13:00 Urine pH 5.0 (5.0-8.0) 03/06/18 13:00 Ur Specific [place] 1.020 (1.001-1.035) 03/06/18 13:00 Urine Protein Negative (NEGATIVE) 03/06/18 13:00 Urine Glucose (UA) Negative (NEGATIVE) 03/06/18 13:00 Urine Ketones Negative (NEGATIVE) 03/06/18 13:00 Urine Blood Negative (NEGATIVE) 03/06/18 13:00 Urine Nitrite Negative (NEGATIVE) 03/06/18 13:00 Urine Bilirubin Negative (<2.0 mg/dL) 03/06/18 13:00 Urine Urobilinogen Negative mg/dL (0.2-1.0) 03/06/18 13:00 Ur Leukocyte Esterase Negative (NEGATIVE) 03/06/18 13:00 Urine WBC (Auto) 4 /hpf (3-5) 03/03/18 20:08 Urine RBC (Auto) 9 /hpf (0-3) 03/03/18 20:08 Ur Epithelial Cells Rare /HPF (FEW) 03/03/18 20:08 Urine Mucus Rare 03/03/18 20:08 RPR Titer Nonreactive (NONREACTIVE) 03/04/18 07:30 HIV 1&2 Antibody Screen Negative 03/04/18 07:30 HIV P24 Antigen Negative 03/04/18 07:30 Labs noted - Treatment Hospital Course: Detox Protocol Followed, Detoxed Safely, Responded well, Discharged Condition Good, Rehab Referral Accepted - Medication Discharge Medications: Ambulatory Orders traZODone HCL [Trazodone HCl] 200 mg PO HS 11/20/17 traZODone HCL [Trazodone HCl] 200 mg PO HS #30 tablet 03/06/18 - Diagnosis (1) Alcohol dependence with uncomplicated withdrawal Current Visit: Yes Status: Acute (2) Cannabis dependence, uncomplicated Current Visit: Yes Status: Acute (3) Cocaine dependence, uncomplicated Current Visit: Yes Status: Acute (4) History of seizure Current Visit: No Status: Chronic - AMA Did Patient Leave Against Medical Advice: No
== END 2018-03-07 09:21 | disposition home or self-care (01) | DRG 774 ==
LOC: YASAS 13:43 → Y3N 17:51
PROC: HZ2ZZZZ Detoxification Services for Substance Abuse Treatment (ICD-10-PCS; principal; 2018-03-03)
DX: F10.230 Alcohol dependence with withdrawal, uncomplicated (principal); F14.20 Cocaine dependence, uncomplicated; F12.20 Cannabis dependence, uncomplicated; F31.9 Bipolar disorder, unspecified; F19.24 Other psychoactive substance dependence with psychoactive substance-induced mood disorder; F33.9 Major depressive disorder, recurrent, unspecified; G47.00 Insomnia, unspecified; I10 Essential (primary) hypertension; Z87.828 Personal history of other (healed) physical injury and trauma; Z59.0 Homelessness
CPT/HCPCS: 36415; 80053; 81003; 81015; 85027; 86593; 87389; 93005; 93010

== ENCOUNTER 2018-11-09 08:48 | Inpatient (IN) | payer OTHER ==
[2018-11-09 09:36] VITALS: BMI 21.9
--- NOTE | 2018-11-09 10:47 | HP ---
CIWA Score Nausea/Vomitin Muscle Tremors: 2 Anxiety: 2 Agitation: 2 Paroxysmal Sweats: 1-Minimal Palms Moist Orientation: 0-Oriented Tacttile Disturbances: 1-Very Mild Itch/Numbness Auditory Disturbances: 1-Very Mild Visual Disturbances: 0-None Headache: 2-Mild CIWA-Ar Total Score: 13 - Admission Criteria OASAS Guidelines: Admission for Medically Managed Detox: Requires at least one of the followin. CIWA greater than 12 2. Seizures within the past 24 hours 3. Delirium tremens within the past 24 hours 4. Hallucinations within the past 24 hours 5. Acute intervention needed for co occurring medical disorder 6. Acute intervention needed for co occurring psychiatric disorder 7. Severe withdrawal that cannot be handled at a lower level of care (continued vomiting, continued diarrhea, abnormal vital signs) requiring intravenous medication and/or fluids 8. Admission ROS BHS - HPI Chief Complaint: i need help to stop drinking alcohol Allergies/Adverse Reactions: Allergies Allergy/AdvReac Type Severity Reaction Status Date / Time No Known Allergies Allergy Verified 11/09/18 09:27 History of Present Illness: this 38 ears old male with alcohol dependence and marijuana abused,seeking detox ,withdrawal symptom, multiple admissions in detox,last detox 02/2518 to 03/07/18 [facility] but keep relapsing weight loss nicotine dependence 1/2pack/day.would like nicotine gum insomnia longest sobriety for 2 years plan for rehab after detox Exam Limitations: No Limitations - Ebola screening Have you traveled outside of the country in the last 21 days: No Have you had contact with anyone from an Ebola affected area: No - Review of Systems Constitutional: Loss of Appetite, Malaise, Night Sweats, Unintentional Wgt. Loss EENT: reports: Nose Congestion Respiratory: reports: No Symptoms reported Cardiac: reports: No Symptoms Reported GI: reports: Nausea, Poor Appetite, Indigestion : reports: No Symptoms Reported Musculoskeletal: reports: Back Pain, Muscle Pain Neuro: reports: No Symptoms reported Endocrine: reports: No Symptoms Reported Hematology: reports: No Symptoms Reported Psychiatric: reports: No Sypmtoms Reported, Judgement Intact, Mood/Affect Appropiate, Orientated x3, other (insomnia) Other Systems: Reviewed and Negative Patient History - Patient Medical History Hx Anemia: No Hx Asthma: No Hx Chronic Obstructive Pulmonary Disease (COPD): No Hx Cancer: No Hx Cardiac Disorders: No Hx Congestive Heart Failure: No Hx Hypertension: Yes (not on meds ) Hx Hypercholesterolemia: No Hx Pacemaker: No HX Cerebrovascular Accident: No Hx Seizures: Yes (childhood seizures, reports last episode 6 months ago ) Hx Dementia: No Hx Diabetes: No Hx Gastrointestinal Disorders: No Hx Liver Disease: No Hx Genitourinary Disorders: No Hx Sexually Transmitted Disorders: No Hx Renal Disease (ESRD): No Hx Thyroid Disease: No Hx Human Immunodeficiency Virus (HIV): No (NEGATIVE HX last 06/27) Hx Hepatitis C: No Hx Depression: Yes Hx Suicide Attempt: No (DENIES) Hx Bipolar Disorder: Yes (no med) Hx Schizophrenia: No Other Medical History: no suicidal,no homicidal - Patient Surgical History Past Surgical History: No Hx Neurologic Surgery: No Hx Cataract Extraction: No Hx Cardiac Surgery: No Hx Lung Surgery: No Hx Breast Surgery: No Hx Breast Biopsy: No Hx Abdominal Surgery: No Hx Appendectomy: No Hx Cholecystectomy: No Hx Genitourinary Surgery: No Hx Orthopedic Surgery: No Anesthesia Reaction: No - PPD History Previous Implant?: Yes Documented Results: Negative w/o proof Implanted On Prior R Admission?: Yes Date: 08/08/17 Results: 0 mm PPD to be Administered?: Yes - Smoking Cessation Smoking history: Current every day smoker Have you smoked in the past 12 months: Yes Aproximately how many cigarettes per day: 10 Hx Chewing Tobacco Use: No Initiated information on smoking cessation: Yes 'Breaking Loose' booklet given: 11/09/18 - Substance & Tx. History Hx Alcohol Use: Yes Hx Substance Use: Yes Substance Use Type: Alcohol Hx Substance Use Treatment: Yes ([facility] 03/03/18 to 03/06/18) - Substances abused Alcohol Substance route: Oral Frequency: Daily Amount used: 1 gallon vodka Age of first use: 23 Date of last use: 11/09/18 Marijuana/Hashish Substance route: Smoking Frequency: 1-3 times last 30 days Amount used: 5$ Age of first use: 19 Date of last use: 11/07/18 Family Disease History - Family Disease History Family Disease History: Other: Father (unknown), Mother (alive and well , htn ) Admission Physical Exam BHS - Vital Signs Vital Signs: Vital Signs - 24 hr 11/09/18 09:28 Temperature 97.9 F Pulse Rate 69 Respiratory 18 Rate Blood Pressure 137/90 - Physical General Appearance: Yes: Moderate Distress, Tremorous, Irritable, Sweating, Anxious HEENTM: Yes: Normal ENT Inspection, [place], Pharynx Normal Respiratory: Yes: Lungs Clear, Normal Breath Sounds, No Respiratory Distress Neck: Yes: Within Normal Limits, Supple, Trachea in good position Breast: Yes: Within Normal Limits Cardiology: Yes: Within Normal Limits, Regular Rhythm, Regular Rate, S1, S2 Genitourinary: Yes: Within Normal Limits Back: Yes: Within Normal Limits Musculoskeletal: Yes: Within Normal Limits, Back pain, Muscle Pain Extremities: Yes: Within Normal Limits, Normal Range of Motion, Tremors 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 NML intact, Alert, Motor Strength 5/5 Integumentary: Yes: Dry, Other (tattooe) Lymphatic: Yes: Within Normal Limits - Diagnostic (1) Alcohol dependence with uncomplicated withdrawal Current Visit: No Status: Acute (2) Callus Current Visit: No Status: Acute (3) Cannabis dependence, uncomplicated Current Visit: No Status: Acute (4) Dehydration Current Visit: No Status: Acute (5) Weight loss Current Visit: No Status: Acute (6) History of seizure Current Visit: No Status: Chronic Cleared for Admission S - Detox or Rehab [facility] Level of Care: Medically Managed Detox Regimen/Protocol: Librium Screened but not Admitted - Documentation of Visit Screened but not Admitted: No Breathalyzer - Breathalyzer Breathalyzer: 0.018 Urine Drug Screen - Test Device Lot number: [id number] Expiration date: 08/06/20 - Control Is test valid?: Yes - Results Drug screen NEGATIVE: No Urine drug screen results: THC-Marijuana Inpatient Rehab Admission - Rehab Decision to Admit Inpatient rehab admission?: No
[2018-11-09] MEDS ORDERED: MAG HYDROX/AL HYDROX/SIMETH 30 ML UNIT-DOSE CUP PO PRN (10:56)
[2018-11-09] MEDS ORDERED: MAGNESIUM CITRATE 300 ML BOTTLE PO PRN (10:56)
[2018-11-09] MEDS ORDERED: METHOCARBAMOL 500 MG TABLET PO PRN (10:56)
[2018-11-09] MEDS ORDERED: IBUPROFEN 400 MG TABLET (FP) PO PRN (10:56)
[2018-11-09] MEDS ORDERED: MENTHOL/PHENOL 1 EACH UD MM PRN (10:56)
[2018-11-09] MEDS ORDERED: MAGNESIUM HYDROX 2400MG/30ML ORAL SUSPENSION 30 ML CUP PO PRN (10:56)
[2018-11-09] MEDS ORDERED: BISMUTH SUBSALICYLATE 524 MG/30 ML UD PO PRN (10:56)
[2018-11-09] MEDS ORDERED: NICOTINE POLACRILEX 2 MG GUM BUC PRN (10:56)
[2018-11-09] MEDS ORDERED: ACETAMINOPHEN 325 MG TABLET (FP) PO PRN ×2 (10:56)
[2018-11-09] MEDS: hydrOXYzine PAMOATE 25 MG CAPSULE (FP) PO PRN (11:38)
[2018-11-09] MEDS: chlordiazePOXIDE HCL 25 MG CAPSULE PO PRN (11:38)
[2018-11-09 12:09] LABS: ALBUMIN 3.9 g/dl (3.4-5.0); CALCIUM 8.6 mg/dL (8.5-10.1); CREATININE 0.7 mg/dL (0.55-1.3); POTASSIUM 3.9 mmol/L (3.5-5.1); TOT PROT 7.4 g/dl (6.4-8.2)
[2018-11-09 12:13] LABS: HEMOGLOBIN 15.5 GM/dL (11.7-16.9); MCH 32.8 pg (25.7-33.7); MCHC 34.3 g/dl (32.0-35.9); MEAN CELL VOLUME 95.5 fl (80-96); MEAN PLT VOLUME 9.2 fl (7.5-11.1); PLATELET COUNT 183 K/MM3 (134-434); RBC 4.72 M/mm3 (4.00-5.60); RDW 15.8 % (11.9-15.9)
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
[2018-11-09] MEDS: chlordiazePOXIDE HCL 25 MG CAPSULE PO SCH ×2 (17:17→22:15)
[2018-11-09] MEDS: QUEtiapine FUMARATE 100 MG TABLET (FP) PO SCH (22:16)
[2018-11-09] MEDS: MELATONIN 5 MG TABLETS PO PRN (22:16)
[2018-11-09] MEDS: THIAMINE HCL 100 MG TABLET (FP) PO SCH (22:16)
[2018-11-10] MEDS: chlordiazePOXIDE HCL 25 MG CAPSULE PO SCH ×4 (06:25→22:20)
[2018-11-10] MEDS: PRENATAL VITAMINS W/ FOLIC ACID TABLET (FP) PO SCH (10:25)
--- NOTE | 2018-11-10 10:41 | PN ---
S CIWA - CIWA Score Nausea/Vomitin-No Nausea/No Vomiting Muscle Tremors: 3 Anxiety: 3 Agitation: 3 Paroxysmal Sweats: 3 Orientation: 0-Oriented Tacttile Disturbances: 0-None Auditory Disturbances: 0-None Visual Disturbances: 0-None Headache: 0-None Present CIWA-Ar Total Score: 12 BHS Progress Note (SOAP) Subjective: sweats chills body aches interrupted sleep agitation poor appetite Objective: 11/10/18 10:19 Vital Signs Temperature 97.8 F 11/10/18 09:33 Pulse Rate 70 11/10/18 09:33 Respiratory Rate 17 11/10/18 09:33 Blood Pressure 133/99 11/10/18 09:33 O2 Sat by Pulse Oximetry (%) Laboratory Tests 11/09/18 11/09/18 11/09/18 10:50 10:50 10:50 WBC 5.0 RBC 4.72 Hgb 15.5 Hct 45.0 MCV 95.5 MCH 32.8 MCHC 34.3 RDW 15.8 D Plt Count 183 D MPV 9.2 Sodium 137 Potassium 3.9 Chloride 102 Carbon Dioxide 28 Anion Gap 8 BUN 6 L Creatinine 0.7 Est GFR (CKD-EPI)AfAm 139.73 Est GFR (CKD-EPI)NonAf 120.56 Random Glucose 79 Calcium 8.6 Total Bilirubin 1.0 AST 138 H ALT 158 H Alkaline Phosphatase 69 Total Protein 7.4 Albumin 3.9 RPR Titer HIV 1&2 Antibody Screen Negative HIV P24 Antigen Negative 11/09/18 10:50 WBC RBC Hgb Hct MCV MCH MCHC RDW Plt Count MPV Sodium Potassium Chloride Carbon Dioxide Anion Gap BUN Creatinine Est GFR (CKD-EPI)AfAm Est GFR (CKD-EPI)NonAf Random Glucose Calcium Total Bilirubin AST ALT Alkaline Phosphatase Total Protein Albumin RPR Titer Nonreactive HIV 1&2 Antibody Screen HIV P24 Antigen labs noted elevated ast/alt aaox3 ambulating no acute distress Assessment: 11/10/18 10:19 withdrawal sx Plan: continue detox increase fluids ensure plus bid
[2018-11-10] MEDS: chlordiazePOXIDE HCL 25 MG CAPSULE PO PRN (19:21)
[2018-11-10] MEDS: MELATONIN 5 MG TABLETS PO PRN (22:20)
[2018-11-10] MEDS: THIAMINE HCL 100 MG TABLET (FP) PO SCH (22:20)
[2018-11-10] MEDS: QUEtiapine FUMARATE 100 MG TABLET (FP) PO SCH (22:20)
[2018-11-11] MEDS: chlordiazePOXIDE HCL 25 MG CAPSULE PO SCH ×2 (06:39→10:07)
[2018-11-11] MEDS: PRENATAL VITAMINS W/ FOLIC ACID TABLET (FP) PO SCH (10:07)
--- NOTE | 2018-11-11 10:09 | PN ---
S CIWA - CIWA Score Nausea/Vomitin-No Nausea/No Vomiting Muscle Tremors: 3 Anxiety: 2 Agitation: 3 Paroxysmal Sweats: 2 Orientation: 0-Oriented Tacttile Disturbances: 0-None Auditory Disturbances: 0-None Visual Disturbances: 0-None Headache: 0-None Present CIWA-Ar Total Score: 10 BHS Progress Note (SOAP) Subjective: sweats shakes interrupted sleep Objective: 11/11/18 10:07 Vital Signs Temperature 98.6 F 11/11/18 09:32 Pulse Rate 64 11/11/18 09:32 Respiratory Rate 18 11/11/18 09:32 Blood Pressure 131/88 11/11/18 09:32 O2 Sat by Pulse Oximetry (%) Laboratory Tests 11/09/18 11/09/18 11/09/18 10:50 10:50 10:50 WBC 5.0 RBC 4.72 Hgb 15.5 Hct 45.0 MCV 95.5 MCH 32.8 MCHC 34.3 RDW 15.8 D Plt Count 183 D MPV 9.2 Sodium 137 Potassium 3.9 Chloride 102 Carbon Dioxide 28 Anion Gap 8 BUN 6 L Creatinine 0.7 Est GFR (CKD-EPI)AfAm 139.73 Est GFR (CKD-EPI)NonAf 120.56 Random Glucose 79 Calcium 8.6 Total Bilirubin 1.0 AST 138 H ALT 158 H Alkaline Phosphatase 69 Total Protein 7.4 Albumin 3.9 RPR Titer HIV 1&2 Antibody Screen Negative HIV P24 Antigen Negative 11/09/18 10:50 WBC RBC Hgb Hct MCV MCH MCHC RDW Plt Count MPV Sodium Potassium Chloride Carbon Dioxide Anion Gap BUN Creatinine Est GFR (CKD-EPI)AfAm Est GFR (CKD-EPI)NonAf Random Glucose Calcium Total Bilirubin AST ALT Alkaline Phosphatase Total Protein Albumin RPR Titer Nonreactive HIV 1&2 Antibody Screen HIV P24 Antigen labs noted elevated ast/alt aaox3 ambulating no acute distress Assessment: 11/11/18 10:08 mild withdrawal sx Plan: continue detox increase fluids repeat ast/alt d/c tylenol
[2018-11-11] MEDS: TOLNAFTATE 1% CREAM 15 GM TUBE TP SCH ×2 (14:37→22:35)
[2018-11-11] MEDS: chlordiazePOXIDE HCL 10 MG CAPSULE PO SCH ×2 (16:48→22:33)
[2018-11-11] MEDS ORDERED: chlordiazePOXIDE HCL 10 MG CAPSULE PO PRN (17:00)
[2018-11-11] MEDS ORDERED: QUEtiapine FUMARATE 50 MG TABLET ONE (20:48)
[2018-11-11] MEDS: MELATONIN 5 MG TABLETS PO PRN (22:34)
[2018-11-11] MEDS: QUEtiapine FUMARATE 100 MG TABLET (FP) PO SCH (22:34)
[2018-11-11] MEDS: THIAMINE HCL 100 MG TABLET (FP) PO SCH (22:34)
[2018-11-12] MEDS: chlordiazePOXIDE HCL 10 MG CAPSULE PO SCH ×3 (06:10→18:23)
--- NOTE | 2018-11-12 09:59 | PN ---
S CIWA - CIWA Score Nausea/Vomitin-No Nausea/No Vomiting Muscle Tremors: 1-None Visible, but [place] Anxiety: 1-Mildly Anxious Agitation: 3 Paroxysmal Sweats: 2 Orientation: 0-Oriented Tacttile Disturbances: 0-None Auditory Disturbances: 0-None Visual Disturbances: 0-None Headache: 0-None Present CIWA-Ar Total Score: 7 BHS Progress Note (SOAP) Subjective: feeling much better little anxiety Objective: 11/12/18 09:58 Vital Signs Temperature 97.9 F 11/12/18 09:25 Pulse Rate 79 11/12/18 09:25 Respiratory Rate 18 11/12/18 09:25 Blood Pressure 122/78 11/12/18 09:25 O2 Sat by Pulse Oximetry (%) aaox3 ambulating no acute distress Assessment: 11/12/18 09:59 mild withdrawal sx Plan: continue detox increase fluids d/c in am
[2018-11-12] MEDS: PRENATAL VITAMINS W/ FOLIC ACID TABLET (FP) PO SCH (10:23)
[2018-11-12] MEDS: TOLNAFTATE 1% CREAM 15 GM TUBE TP SCH ×2 (10:23→22:02)
[2018-11-12 10:44] LABS: SGOT/AST 168 U/L (15-37); SGPT/ALT 271 U/L (13-61)
[2018-11-12] MEDS: QUEtiapine FUMARATE 100 MG TABLET (FP) PO SCH (22:00)
[2018-11-12] MEDS: THIAMINE HCL 100 MG TABLET (FP) PO SCH (22:01)
[2018-11-13 06:22] VITALS: TEMP 98.1
[2018-11-13] MEDS: chlordiazePOXIDE HCL 10 MG CAPSULE PO SCH (06:34)
[2018-11-13 09:16] VITALS: BP 141/83; PULSE 86
--- NOTE | 2018-11-13 09:19 | DS ---
[facility] Detox Discharge Summary Admission Date: 11/09/18 Discharge Date: 11/13/18 - History Present History: Alcohol Dependence, Cannabis Dependence, Cocaine Dependence - Physical Exam Results Vital Signs: Vital Signs Temperature 98.1 F 11/13/18 06:00 Pulse Rate 61 11/13/18 06:00 Respiratory Rate 18 11/13/18 06:00 Blood Pressure 137/80 11/13/18 06:00 O2 Sat by Pulse Oximetry (%) - Treatment Hospital Course: Detox Protocol Followed, Detoxed Safely, Responded well, Discharged Condition Good, Rehab Referral Accepted - Medication Discharge Medications: Ambulatory Orders NK [No Known Home Medication] 11/09/18 - Diagnosis (1) Bipolar disorder Current Visit: Yes Status: Chronic (2) HTN (hypertension) Current Visit: Yes Status: Chronic Qualifiers: Hypertension type: essential hypertension Qualified Code(s): I10 - Essential (primary) hypertension (3) Nicotine dependence Current Visit: Yes Status: Chronic Qualifiers: Nicotine product type: cigarettes Substance use status: uncomplicated Qualified Code(s): F17.210 - Nicotine dependence, cigarettes, uncomplicated (4) Schizoaffective disorder Current Visit: Yes Status: Ruled-out (5) Alcohol dependence with uncomplicated withdrawal Current Visit: Yes Status: Chronic (6) Cannabis dependence, uncomplicated Current Visit: Yes Status: Chronic (7) Cocaine dependence, uncomplicated Current Visit: Yes Status: Chronic (8) Depressed affect Current Visit: No Status: Acute (9) Drug-induced mood disorder Current Visit: No Status: Acute (10) Substance-induced sleep disorder Current Visit: No Status: Acute (11) History of seizure Current Visit: No Status: Chronic - AMA Did Patient Leave Against Medical Advice: No (pt referred to [facility] inpatient rehab)
[2018-11-13] MEDS: PRENATAL VITAMINS W/ FOLIC ACID TABLET (FP) PO SCH (10:27)
[2018-11-13] MEDS: TOLNAFTATE 1% CREAM 15 GM TUBE TP SCH (10:27)
[2018-11-13] MEDS: hydrOXYzine PAMOATE 25 MG CAPSULE (FP) PO PRN (11:35)
== END 2018-11-13 11:58 | disposition home or self-care (01) | DRG 774 ==
LOC: YASAS 08:48 → Y6N 10:58
PROVIDERS: ADMIT Surgery; ATTEND Surgery
PROC: HZ2ZZZZ Detoxification Services for Substance Abuse Treatment (ICD-10-PCS; principal; 2018-11-09)
DX: F10.230 Alcohol dependence with withdrawal, uncomplicated (principal); F14.20 Cocaine dependence, uncomplicated; F12.20 Cannabis dependence, uncomplicated; F17.210 Nicotine dependence, cigarettes, uncomplicated; F25.9 Schizoaffective disorder, unspecified; F31.9 Bipolar disorder, unspecified; F19.282 Other psychoactive substance dependence with psychoactive substance-induced sleep disorder; F19.24 Other psychoactive substance dependence with psychoactive substance-induced mood disorder; I10 Essential (primary) hypertension; R45.89 Other symptoms and signs involving emotional state; R94.5 Abnormal results of liver function studies; Z86.69 Personal history of other diseases of the nervous system and sense organs; Z59.0 Homelessness
CPT/HCPCS: 36415; 80053; 84450; 84460; 85027; 86593; 87389

== ENCOUNTER 2019-08-14 12:38 | Emergency (ER) | payer OTHER ==
[2019-08-14 13:02] VITALS: TEMP 98.3; BMI 23.5
--- NOTE | 2019-08-14 13:14 | PDOC ---
History of Present Illness - General Chief Complaint: Alcohol intoxication Stated Complaint: ANXIETY Time Seen by Provider: 08/14/19 13:13 - History of Present Illness Initial Comments: 08/14/19 13:35 39 yo M PMH HTN, anxiety on Seroquel (ran out one month ago), alcohol and K2 abuse, prior TBIs, presenting with alcohol intoxication. Patient states that he has been smoking K2 and drinking every day this past week, but he wants to enter detox. Last drink this morning. States "I don't give a fuck about you or anyone, only me", but denies any complaints. Uncooperative. Past History - Past Medical History Allergies/Adverse Reactions: Allergies Allergy/AdvReac Type Severity Reaction Status Date / Time No Known Allergies Allergy Verified 08/14/19 12:56 Home Medications: Ambulatory Orders NK [No Known Home Medication] 11/09/18 Anemia: No Asthma: No Cancer: No Cardiac Disorders: No CVA: No COPD: No CHF: No Dementia: No Diabetes: No GI Disorders: No Disorders: No HTN: Yes (not on meds ) Hypercholesterolemia: No Kidney Stones: No Liver Disease: No Seizures: Yes (childhood seizures, reports last episode 6 months ago ) Thyroid Disease: No - Surgical History Abdominal Surgery: No Appendectomy: No Cardiac Surgery: No Cholecystectomy: No Lung Surgery: No Neurologic Surgery: No Orthopedic Surgery: No - Reproductive History Testicular Surgery: No - Immunization History Immunization Up to Date: Yes - Psycho Social/Smoking Cessation Hx Smoking History: Current every day smoker Have you smoked in the past 12 months: Yes Number of Cigarettes Smoked Daily: 40 Information on smoking cessation initiated: Yes 'Breaking Loose' booklet given: 11/09/18 Hx Alcohol Use: Yes Drug/Substance Use Hx: Yes Substance Use Type: Alcohol Hx Substance Use Treatment: Yes ([facility] 03/03/18 to 03/06/18) Review of Systems - Review of Systems Comments:: 08/14/19 13:42 Patient uncooperative, but denies CP, SOB, abd pain. *Physical Exam - Vital Signs Last Vital Signs Temp Pulse Resp BP Pulse Ox 98.3 F 112 H 16 134/82 100 08/14/19 12:56 08/14/19 12:56 08/14/19 12:56 08/14/19 12:56 08/14/19 12:56 - Physical Exam 08/14/19 13:42 Gen: agitated, clinically intoxicated Neuro: AAOX4, CN II-XII grossly intact HEENT: well-healed scar on L parietal scalp, normocephalic, dry mucous membranes Neck: trachea midline, supple CV: tachycardic, regular rhythm, no murmurs, rubs, or gallops Pulm: CTA b/l, no wheezing Abd: soft, non-distended, non-tender MSK: full ROM, intact pulses Extr: no edema, no deformities Skin: warm, dry ED Treatment Course - LABORATORY CBC & Chemistry Diagram: 08/14/19 14:07 08/14/19 14:07 Medical Decision Making - Medical Decision Making 08/14/19 13:44 Concern for acute alcohol intoxication, seeking detox. - CBC, CMP - 1mg Ativan - EKG 08/14/19 14:35 EKG sinus tachycardia at 105 bpm, CT 130, QRS 86, QTc 444. AST and ALT elevations. 08/14/19 15:22 Patient agitated, sweaty, tachycardic. Will give 2mg IM Ativan, dc to [facility]. Discharge - Discharge Information Problems reviewed: Yes Clinical Impression/Diagnosis: Alcohol dependence with uncomplicated withdrawal Condition: Stable Disposition: HOME - Admission No - Follow up/Referral - Patient Discharge Instructions Patient Printed Discharge Instructions: DI for Alcohol Abuse Additional Instructions: You were seen with alcohol intoxication, seeking detox. Your EKG and labs did not show any acute abnormalities. You will be discharged directly to [facility] for detox. Follow up with your primary care doctor within one week. Return to the ED if you develop worsening symptoms. - Post Discharge Activity
[2019-08-14] MEDS ORDERED: LORazepam 2 MG/ML SDV VIAL ONE ×2 (13:57→15:25)
--- NOTE | 2019-08-14 14:11 | PDOC ---
Attending Attestation - Resident Resident Name: Denny Mirza - ED Attending Attestation I have performed the following: I have examined & evaluated the patient, The case was reviewed & discussed with the resident, I agree w/resident's findings & plan, Exceptions are as noted - HPI HPI: 08/14/19 14:09 39-year-old male with history of polysubstance abuse presents to the ER with acute agitation and alcohol intoxication after consuming alcohol and smoking K2 prior to arrival. Patient is accompanied by his mother and is requesting detox. - Physicial Exam PE: 08/14/19 14:10 Patient is awake and alert, agitated, in no significant distress Normocephalic and atraumatic PERRLA, EOMI mmm CTA RRR tachycardic Abdomen soft, nontender, nondistended No focal neuro deficits - Medical Decision Making 08/14/19 14:10 patient is a 39-year-old male with history of polysubstance abuse who presents to the ER with signs and symptoms of alcohol intoxication. Patient is agitated, without evidence of acute head injury at the time. Will administer benzodiazepines for mild sedation. Will observe to sobriety. Will discharge to detox
[2019-08-14 14:44] LABS: BASO % 0.8 % (0-2.0); EOS % 1.2 % (0-4.5); HEMATOCRIT 47.8 % (35.4-49); HEMOGLOBIN 16.9 GM/dL (11.7-16.9); LYMPH % 42.3 % (8-40); MCHC 35.3 g/dl (32.0-35.9); MEAN CELL VOLUME 96.2 fl (80-96); MEAN PLT VOLUME 8.8 fl (7.5-11.1); MONO % 4.7 % (3.8-10.2); PLATELET COUNT 237 K/MM3 (134-434); RBC 4.97 M/mm3 (4.00-5.60); RDW 12.1 % (11.9-15.9); WHITE BLOOD COUNT 7.2 K/mm3 (4.0-10.0)
[2019-08-14 14:48] LABS: ALBUMIN 4.1 g/dl (3.4-5.0); BILIRUBIN,TOTAL 0.6 mg/dL (0.2-1); BLOOD UREA NITROGEN 7.3 mg/dL (7-18); CALCIUM 8.6 mg/dL (8.5-10.1); CREATININE 0.8 mg/dL (0.55-1.3); POTASSIUM 3.7 mmol/L (3.5-5.1); TOT PROT 8.2 g/dl (6.4-8.2)
[2019-08-14 15:36] VITALS: BP 130/78; PULSE 105
--- NOTE | 2019-08-15 09:51 | EKG ---
Test Reason : Blood Pressure : / mmHG Vent. Rate : 105 BPM Atrial Rate : 105 BPM P-R Int : 130 ms QRS Dur : 086 ms QT Int : 336 ms P-R-T Axes : 063 074 050 degrees QTc Int : 444 ms SINUS TACHYCARDIA OTHERWISE NORMAL ECG WHEN COMPARED WITH ECG OF 03-MAR-2018 20:23, VENT. RATE HAS INCREASED BY 36 BPM Confirmed by Jonny Herbert MD ([id number]) on 08/15/2019 9:50:53 AM Referred By: Confirmed By:Jonny Herbert MD
== END 2019-08-14 15:36 | disposition home or self-care (01) ==
LOC: JER 12:38
PROC: 3E023NZ Introduction of Analgesics, Hypnotics, Sedatives into Muscle, Percutaneous Approach (ICD-10-PCS; principal; 2019-08-14)
PROC: 3E023NZ Introduction of Analgesics, Hypnotics, Sedatives into Muscle, Percutaneous Approach (ICD-10-PCS; 2019-08-14)
DX: F10.230 Alcohol dependence with withdrawal, uncomplicated (principal); Y90.9 Presence of alcohol in blood, level not specified; I10 Essential (primary) hypertension; F41.9 Anxiety disorder, unspecified; Z87.820 Personal history of traumatic brain injury
CPT/HCPCS: 36415; 80053; 85025; 93005; 93010; 99284-25

== ENCOUNTER 2019-08-14 15:56 | Inpatient (IN) | payer OTHER ==
--- NOTE | 2019-08-14 16:20 | BHS.RME ---
Substance Use & Tx History - Substance Use History Alcohol Substance amount: 1 gallon Frequency of use: Daily Substance route: Oral Date of Last Use: 08/14/19 (10 am) Cannabis (Synthetic) Substance amount: K2 - 2-3 pulls Frequency of use: Daily Substance route: Smoking Date of Last Use: 08/13/19 - Last Treatment Date of last treatment: 11/2018 Treatment type: Substance Use Disorder ([facility]) Where was last treatment: Detox Physical/Psych/Mental Status - Behavior General Behavior: Increased activity (restlessness, agitation) (Intoxicated. PAT 0.216) - Cooperativeness Cooperativeness: Cooperative - Physical Health Problems Is patient presently having any pain?: Yes (Whole body hurts. Headache from hitting head) Does patient presently have any injuries (include location): Yes (Bump (L) periorbital area) Does patient currently have a fever: No Is patient : No CIWA Nausea/Vomitin-Mild Nausea/No Vomiting Muscle Tremors: 3 Anxiety: 4-Mod. Anxious/Guarded Agitation: 4-Moderately Restless Paroxysmal Sweats: 1-Minimal Palms Moist Orientation: 0-Oriented Tacttile Disturbances: 0-None Auditory Disturbances: 0-None Visual Disturbances: 0-None Headache: 2-Mild CIWA-Ar Total Score: 15 Treatment Recommendation - Level of Care Level of Care: Acute Medical ([facility] ED for Fall Protocol 1. Return to [facility] for Admission to detox once cleared.)
[2019-08-14 21:16] VITALS: BMI 23.5
--- NOTE | 2019-08-14 22:02 | HP ---
CIWA Score Nausea/Vomitin-No Nausea/No Vomiting Muscle Tremors: 3 Anxiety: 4-Mod. Anxious/Guarded Agitation: 4-Moderately Restless Paroxysmal Sweats: 1-Minimal Palms Moist Orientation: 1-Uncertain about Date Tacttile Disturbances: 0-None Auditory Disturbances: 1-Very Mild Visual Disturbances: 1-Very Mild Sensitivity Headache: 3-Moderate (8/10) CIWA-Ar Total Score: 18 - Admission Criteria [facility]ASAS Guidelines: Admission for Medically Managed Detox: Requires at least one of the followin. CIWA greater than 12 2. Seizures within the past 24 hours 3. Delirium tremens within the past 24 hours 4. Hallucinations within the past 24 hours 5. Acute intervention needed for co occurring medical disorder 6. Acute intervention needed for co occurring psychiatric disorder 7. Severe withdrawal that cannot be handled at a lower level of care (continued vomiting, continued diarrhea, abnormal vital signs) requiring intravenous medication and/or fluids 8. Admitting History and Physical - Smoking History Smoking history: Current every day smoker Have you smoked in the past 12 months: Yes Aproximately how many cigarettes per day: 40 - Alcohol/Substance Use Hx Alcohol Use: Yes Admission ROS [facility] Chief Complaint: C/O WITHDRAWAL SX'S Allergies/Adverse Reactions: Allergies Allergy/AdvReac Type Severity Reaction Status Date / Time No Known Allergies Allergy Verified 08/14/19 12:56 History of Present Illness: HERE FOR ALCOHOL DETOX. CLIENT IS SELF REFERRED. KNOW TO PROGRAM. LAST HERE IN 2019. HE RETURNS FROM [facility] AFTER BEING EVALUATED FOR HITTING HIS HEAD ON CAR DOOR SUSTAINING A HEMATOMA. HE HAS SINCE BEEN CLEARED. HEAD CT NEGATIVE AND RETURNS FOR TXMENT. HE REPORTS DAILY ALCOHOL INTAKE. LAST DRINK OVER 12 HOURS. 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 REPORTS MOST RECENT CLEAN TIME 6 MONTHS WHILE INCARCERATED. RELAPSING 2 YEARS AGO. + BLACK OUTS, DENIES SEIZURES, AVH, + HX/O SI BUT PRESENTLY DENIES. HOMELESS, UNEMPLOYED, DENIES LEGALS Exam Limitations: No Limitations - Ebola screening Have you traveled outside of the country in the last 21 days: No Have you had contact with anyone from an Ebola affected area: No Have you been sick,other than usual withdrawal symptoms: No Do you have a fever: No - Review of Systems Constitutional: Chills, Loss of Appetite, Night Sweats, Changes in sleep EENT: reports: No Symptoms Reported Respiratory: reports: No Symptoms reported Cardiac: reports: No Symptoms Reported GI: reports: Nausea, Poor Appetite, Poor Fluid Intake : reports: No Symptoms Reported Musculoskeletal: reports: Neck Pain Integumentary: reports: Flushing Neuro: reports: Tremors, Other (BLACK OUTS 2 DAYS AGO) Endocrine: reports: No Symptoms Reported Hematology: reports: No Symptoms Reported Psychiatric: reports: Orientated x3, Agitated, Anxious, Depressed Other Systems: Reviewed and Negative Patient History - Patient Medical History Hx Anemia: No Hx Asthma: No Hx Chronic Obstructive Pulmonary Disease (COPD): No Hx Cancer: No Hx Cardiac Disorders: No Hx Congestive Heart Failure: No Hx Hypertension: Yes (NOT COMPLAINT WITH MEDS) Hx Hypercholesterolemia: No Hx Pacemaker: No HX Cerebrovascular Accident: No Hx Seizures: Yes (childhood seizures, reports last episode 6 months ago ) Hx Dementia: No Hx Diabetes: No Hx Gastrointestinal Disorders: No Hx Liver Disease: No Hx Genitourinary Disorders: No Hx Sexually Transmitted Disorders: No Hx Renal Disease (ESRD): No Hx Thyroid Disease: No Hx Human Immunodeficiency Virus (HIV): No (NEGATIVE HX last 06/27) Hx Hepatitis C: No Hx Depression: Yes Hx Suicide Attempt: No (DENIES) Hx Bipolar Disorder: Yes (SEROQUEL) Hx Schizophrenia: No Other Medical History: DENIES - Patient Surgical History Past Surgical History: Yes Hx Neurologic Surgery: No Hx Cataract Extraction: No Hx Cardiac Surgery: No Hx Lung Surgery: No Hx Breast Surgery: No Hx Breast Biopsy: No Hx Abdominal Surgery: No Hx Appendectomy: No Hx Cholecystectomy: No Hx Genitourinary Surgery: No Hx Orthopedic Surgery: No Other Surgical History: SKULL FX Anesthesia Reaction: No - PPD History Previous Implant?: Yes Documented Results: Negative w/proof Implanted On Prior [facility] Admission?: Yes Date: 11/11/18 Results: 0 mm PPD to be Administered?: No - Smoking Cessation Smoking history: Current every day smoker Have you smoked in the past 12 months: Yes Aproximately how many cigarettes per day: 20 Hx Chewing Tobacco Use: No Initiated information on smoking cessation: Yes 'Breaking Loose' booklet given: 08/14/19 - Substance & Tx. History Hx Alcohol Use: Yes Hx Substance Use: Yes Substance Use Type: Alcohol, Marijuana Hx Substance Use Treatment: Yes ([facility]) - Substances abused Alcohol Substance route: Oral Frequency: Daily Amount used: 1/2 GAL AT MOST Age of first use: 22 Date of last use: 08/14/19 K2/Spice Substance route: Smoking Frequency: Daily Amount used: 1 BAG Age of first use: 36 Date of last use: 08/13/19 PCP Substance route: Smoking Frequency: Daily Amount used: 6 BAGS Date of last use: 08/12/19 Admission Physical Exam S - Vital Signs Vital Signs: Vital Signs - 24 hr 08/14/19 21:10 Temperature 98.6 F Pulse Rate 93 H Respiratory 16 Rate Blood Pressure 140/93 - Physical General Appearance: Yes: Moderate Distress, Alcohol on Breath, Tremorous, Irritable, Sweating, Anxious HEENTM: Yes: EOMI, Normocephalic, Normal Voice, [place], Other (DRY MUCUS MEMBRANES) Respiratory: Yes: Chest Non-Tender, Lungs Clear, Normal Breath Sounds, No Respiratory Distress, No Accessory Muscle Use Neck: Yes: No masses,lesions,Nodules, Supple, Trachea in good position Breast: Yes: Breasts Symetrical Cardiology: Yes: Regular Rhythm, Regular Rate, S1, S2 Abdominal: Yes: Non Tender, Soft, Increased Bowel Sounds Genitourinary: Yes: Within Normal Limits Back: Yes: Normal Inspection Musculoskeletal: Yes: full range of Motion Extremities: Yes: Normal Capillary Refill, Normal Range of Motion, Non-Tender, Tremors Neurological: Yes: Fully Oriented, Alert, Motor Strength 5/5 Integumentary: Yes: Warm, Moist Lymphatic: Yes: Within Normal Limits - Diagnostic (1) Homeless Current Visit: Yes Status: Acute (2) Closed head injury Current Visit: Yes Status: Acute Qualifiers: Encounter type: subsequent encounter Qualified Code(s): S09.90XD - Unspecified injury of head, subsequent encounter (3) Depressed affect Current Visit: Yes Status: Acute (4) Drug-induced mood disorder Current Visit: Yes Status: Acute (5) Substance-induced sleep disorder Current Visit: Yes Status: Acute (6) Walked into wall Current Visit: Yes Status: Acute Qualifiers: Encounter type: subsequent encounter Qualified Code(s): W22.01XD - Walked into wall, subsequent encounter (7) Alcohol dependence with uncomplicated withdrawal Current Visit: Yes Status: Acute (8) Bipolar disorder Current Visit: Yes Status: Chronic (9) Cannabis dependence, uncomplicated Current Visit: Yes Status: Acute (10) HTN (hypertension) Current Visit: Yes Status: Chronic Qualifiers: Hypertension type: essential hypertension Qualified Code(s): I10 - Essential (primary) hypertension (11) History of seizure Current Visit: Yes Status: Chronic (12) Nicotine dependence Current Visit: Yes Status: Chronic Qualifiers: Nicotine product type: cigarettes Substance use status: uncomplicated Qualified Code(s): F17.210 - Nicotine dependence, cigarettes, uncomplicated Cleared for Admission [facility] - Detox or Rehab [facility] Level of Care: Medically Managed Detox Regimen/Protocol: Librium Claeared for Rehab Admission: No Breathalyzer - Breathalyzer Breathalyzer: 0.156 Urine Drug Screen - Test Device Lot number: [id number] Expiration date: 05/08/21 - Control Is test valid?: Yes - Results Drug screen NEGATIVE: No Urine drug screen results: THC-Marijuana, BZO-Benzodiazepines Inpatient Rehab Admission - Rehab Decision to Admit Inpatient rehab admission?: No
[2019-08-14] MEDS ORDERED: MENTHOL/PHENOL 1 EACH UD MM PRN (22:13)
[2019-08-14] MEDS ORDERED: DICYCLOMINE HCL 10 MG CAPSULE PO PRN (22:13)
[2019-08-14] MEDS ORDERED: METHOCARBAMOL 500 MG TABLET PO PRN (22:13)
[2019-08-14] MEDS ORDERED: MAGNESIUM HYDROX 2400MG/30ML ORAL SUSPENSION 30 ML CUP PO PRN (22:13)
[2019-08-14] MEDS ORDERED: chlordiazePOXIDE HCL 25 MG CAPSULE PO PRN (22:13)
[2019-08-14] MEDS ORDERED: P-EPHED 60MG/TRIPROLIDI 2.5MG TABLET PO PRN (22:13)
[2019-08-14] MEDS ORDERED: guaiFENesin 200 MG/10 ML 10 ML UNIT-DOSE CUPS PO PRN (22:13)
[2019-08-14] MEDS ORDERED: MAGNESIUM CITRATE 300 ML BOTTLE PO PRN (22:13)
[2019-08-14] MEDS ORDERED: ONDANSETRON *ODT* 4 MG TABLET SL ONE (22:13)
[2019-08-14] MEDS ORDERED: BISMUTH SUBSALICYLATE 524 MG/30 ML UD PO PRN (22:13)
[2019-08-14] MEDS ORDERED: MAG HYDROX/AL HYDROX/SIMETH 30 ML UNIT-DOSE CUP PO PRN (22:13)
[2019-08-14] MEDS ORDERED: ACETAMINOPHEN 325 MG TABLET (FP) PO PRN ×2 (22:13)
[2019-08-14] MEDS ORDERED: IBUPROFEN 400 MG TABLET (FP) PO PRN (22:13)
[2019-08-15] MEDS: chlordiazePOXIDE HCL 25 MG CAPSULE PO SCH ×3 (00:22→10:38)
--- NOTE | 2019-08-15 09:53 | EKG ---
Test Reason : Blood Pressure : / mmHG Vent. Rate : 087 BPM Atrial Rate : 087 BPM P-R Int : 152 ms QRS Dur : 086 ms QT Int : 386 ms P-R-T Axes : 053 047 054 degrees QTc Int : 464 ms NORMAL SINUS RHYTHM NORMAL ECG WHEN COMPARED WITH ECG OF 03-MAR-2018 20:23, NO SIGNIFICANT CHANGE WAS FOUND Confirmed by Jonny Herbert MD ([id number]) on 08/15/2019 9:53:34 AM Referred By: Bo Rojas Confirmed By:Jonny Herbert MD
[2019-08-15] MEDS: PRENATAL VITAMINS W/ FOLIC ACID TABLET (FP) PO SCH (10:37)
[2019-08-15] MEDS: NICOTINE 21 MG/24 HOURS TOPICAL PATCH TD SCH (10:38)
[2019-08-15] MEDS: NICOTINE POLACRILEX 2 MG GUM BUC PRN ×3 (10:39→18:39)
[2019-08-15 11:30] LABS: HEMATOCRIT 42.9 % (35.4-49); HEMOGLOBIN 15.3 GM/dL (11.7-16.9); MCH 34.1 pg (25.7-33.7); MCHC 35.6 g/dl (32.0-35.9); MEAN CELL VOLUME 95.7 fl (80-96); MEAN PLT VOLUME 8.7 fl (7.5-11.1); PLATELET COUNT 179 K/MM3 (134-434); RBC 4.49 M/mm3 (4.00-5.60); RDW 12.1 % (11.9-15.9); WHITE BLOOD COUNT 7.1 K/mm3 (4.0-10.0)
[2019-08-15 11:50] LABS: ALBUMIN 3.7 g/dl (3.4-5.0); BILIRUBIN,TOTAL 1.6 mg/dL (0.2-1); CALCIUM 8.6 mg/dL (8.5-10.1); CREATININE 0.6 mg/dL (0.55-1.3); POTASSIUM 3.4 mmol/L (3.5-5.1); TOT PROT 7.5 g/dl (6.4-8.2)
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
--- NOTE | 2019-08-15 15:07 | PN ---
S CIWA - CIWA Score Nausea/Vomitin-Mild Nausea/No Vomiting Muscle Tremors: 4-Moderate,w/Arms Extend Anxiety: 3 Agitation: 1-Slight > Activity Paroxysmal Sweats: 2 Orientation: 0-Oriented Tacttile Disturbances: 0-None Auditory Disturbances: 0-None Visual Disturbances: 2-Mild Sensitivity Headache: 0-None Present CIWA-Ar Total Score: 13 BHS Progress Note (SOAP) Subjective: 39 years old male admitted on 08/14/19 for alcohol withdrawal sx management treating with librium detox regiment head to car door injury negative CT scan return for alcohol detox feeling ok today ambulating from room to day room steady gait alert oriented x 3 speech clearly coherently Objective: 08/15/19 15:05 Vital Signs Temperature 98.2 F 08/15/19 12:58 Pulse Rate 96 H 08/15/19 12:58 Respiratory Rate 16 08/15/19 12:58 Blood Pressure 142/96 08/15/19 12:58 O2 Sat by Pulse Oximetry (%) Laboratory Last Values WBC 7.1 K/mm3 (4.0-10.0) 08/15/19 07:50 RBC 4.49 M/mm3 (4.00-5.60) 08/15/19 07:50 Hgb 15.3 GM/dL (11.7-16.9) 08/15/19 07:50 Hct 42.9 % (35.4-49) 08/15/19 07:50 MCV 95.7 fl (80-96) 08/15/19 07:50 MCH 34.1 pg (25.7-33.7) H 08/15/19 07:50 MCHC 35.6 g/dl (32.0-35.9) 08/15/19 07:50 RDW 12.1 % (11.9-15.9) 08/15/19 07:50 Plt Count 179 K/MM3 (134-434) D 08/15/19 07:50 MPV 8.7 fl (7.5-11.1) 08/15/19 07:50 Sodium 137 mmol/L (136-145) 08/15/19 07:50 Potassium 3.4 mmol/L (3.5-5.1) L 08/15/19 07:50 Chloride 98 mmol/L (98-107 as ) 08/15/19 07:50 Carbon Dioxide 28 mmol/L (21-32) 08/15/19 07:50 Anion Gap 11 MMOL/L (8-16) 08/15/19 07:50 BUN 7.0 mg/dL (7-18) 08/15/19 07:50 Creatinine 0.6 mg/dL (0.55-1.3) 08/15/19 07:50 Est GFR (CKD-EPI)AfAm 147.82 08/15/19 07:50 Est GFR (CKD-EPI)NonAf 127.55 08/15/19 07:50 Random Glucose 69 mg/dL (74-106) L 08/15/19 07:50 Calcium 8.6 mg/dL (8.5-10.1) 08/15/19 07:50 Total Bilirubin 1.6 mg/dL (0.2-1) H 08/15/19 07:50 AST 111 U/L (15-37) H 08/15/19 07:50 ALT 81 U/L (13-61) H 08/15/19 07:50 Alkaline Phosphatase 64 U/L (45-117) 08/15/19 07:50 Total Protein 7.5 g/dl (6.4-8.2) 08/15/19 07:50 Albumin 3.7 g/dl (3.4-5.0) 08/15/19 07:50 RPR Titer Nonreactive (NONREACTIVE) 08/15/19 07:50 lab noted K+ 3.4 ast elevation discontinue librium begin ativan Assessment: 08/15/19 15:06 alcohol withdrawal Plan: ativan regiment
[2019-08-15] MEDS: LORazepam 2 MG TABLET PO SCH ×2 (16:44→22:43)
[2019-08-15] MEDS: MELATONIN 5 MG TABLETS PO SCH (22:44)
[2019-08-15] MEDS: QUEtiapine FUMARATE 200 MG TABLET PO SCH (22:44)
[2019-08-15] MEDS: THIAMINE HCL 100 MG TABLET (FP) PO SCH (22:44)
[2019-08-16] MEDS: LORazepam 1 MG TABLET PO PRN ×2 (01:33→10:47)
[2019-08-16] MEDS ORDERED: chlordiazePOXIDE HCL 25 MG CAPSULE PO SCH (05:00)
[2019-08-16] MEDS: PRENATAL VITAMINS W/ FOLIC ACID TABLET (FP) PO SCH (10:44)
[2019-08-16] MEDS: NICOTINE POLACRILEX 2 MG GUM BUC PRN ×3 (10:48→18:11)
[2019-08-16] MEDS: NICOTINE 21 MG/24 HOURS TOPICAL PATCH TD SCH (11:11)
[2019-08-16] MEDS ORDERED: hydrOXYzine PAMOATE 50 MG CAPSULE (FP) PO ONE (11:50)
--- NOTE | 2019-08-16 14:04 | PN ---
[facility] CIWA - CIWA Score Nausea/Vomitin-No Nausea/No Vomiting Muscle Tremors: 2 Anxiety: 3 Agitation: 0-Normal Activity Paroxysmal Sweats: 2 Orientation: 0-Oriented Tacttile Disturbances: 0-None Auditory Disturbances: 0-None Visual Disturbances: 2-Mild Sensitivity Headache: 0-None Present CIWA-Ar Total Score: 9 BHS Progress Note (SOAP) Subjective: 39 years old male admitted on 08/14/19 for alcohol withdrawal sx management tr eating with ativan detox regiment requests ensure for poor appetite ensure bid reports long history of anxiety seen by psychiatrist carlos melvin and seroquel doing ok today reports anxious vistaril 50 mg po x 1 Objective: 08/16/19 14:07 Vital Signs Temperature 97 F L 08/16/19 08:37 Pulse Rate 78 08/16/19 08:37 Respiratory Rate 18 08/16/19 08:37 Blood Pressure 132/94 08/16/19 08:37 O2 Sat by Pulse Oximetry (%) Laboratory Last Values WBC 7.1 K/mm3 (4.0-10.0) 08/15/19 07:50 RBC 4.49 M/mm3 (4.00-5.60) 08/15/19 07:50 Hgb 15.3 GM/dL (11.7-16.9) 08/15/19 07:50 Hct 42.9 % (35.4-49) 08/15/19 07:50 MCV 95.7 fl (80-96) 08/15/19 07:50 MCH 34.1 pg (25.7-33.7) H 08/15/19 07:50 MCHC 35.6 g/dl (32.0-35.9) 08/15/19 07:50 RDW 12.1 % (11.9-15.9) 08/15/19 07:50 Plt Count 179 K/MM3 (134-434) D 08/15/19 07:50 MPV 8.7 fl (7.5-11.1) 08/15/19 07:50 Sodium 137 mmol/L (136-145) 08/15/19 07:50 Potassium 3.4 mmol/L (3.5-5.1) L 08/15/19 07:50 Chloride 98 mmol/L (98-107) 08/15/19 07:50 Carbon Dioxide 28 mmol/L (21-32) 08/15/19 07:50 Anion Gap 11 MMOL/L (8-16) 08/15/19 07:50 BUN 7.0 mg/dL (7-18) 08/15/19 07:50 Creatinine 0.6 mg/dL (0.55-1.3) 08/15/19 07:50 Est GFR (CKD-EPI)AfAm 147.82 08/15/19 07:50 Est GFR (CKD-EPI)NonAf 127.55 08/15/19 07:50 Random Glucose 69 mg/dL (74-106) L 08/15/19 07:50 Calcium 8.6 mg/dL (8.5-10.1) 08/15/19 07:50 Total Bilirubin 1.6 mg/dL (0.2-1) H 08/15/19 07:50 AST 111 U/L (15-37) H 08/15/19 07:50 ALT 81 U/L (13-61) H 08/15/19 07:50 Alkaline Phosphatase 64 U/L (45-117) 08/15/19 07:50 Total Protein 7.5 g/dl (6.4-8.2) 08/15/19 07:50 Albumin 3.7 g/dl (3.4-5.0) 08/15/19 07:50 RPR Titer Nonreactive (NONREACTIVE) 08/15/19 07:50 lab noted ast elevation Assessment: 08/16/19 14:07 alcohol withdrawal Plan: ativan regiment
[2019-08-16] MEDS: LORazepam 1 MG TABLET PO SCH ×2 (18:09→22:30)
[2019-08-16] MEDS: MELATONIN 5 MG TABLETS PO SCH (22:30)
[2019-08-16] MEDS: THIAMINE HCL 100 MG TABLET (FP) PO SCH (22:30)
[2019-08-16] MEDS: QUEtiapine FUMARATE 200 MG TABLET PO SCH (22:30)
[2019-08-17] MEDS ORDERED: chlordiazePOXIDE HCL 10 MG CAPSULE PO PRN
[2019-08-17] MEDS: LORazepam 1 MG TABLET PO PRN ×2 (01:03→17:37)
[2019-08-17] MEDS ORDERED: chlordiazePOXIDE HCL 10 MG CAPSULE PO SCH (05:00)
[2019-08-17] MEDS: LORazepam 1 MG TABLET PO SCH ×4 (06:47→22:17)
--- NOTE | 2019-08-17 09:24 | PN ---
S CIWA - CIWA Score Nausea/Vomitin-No Nausea/No Vomiting Muscle Tremors: 2 Anxiety: 3 Agitation: 1-Slight > Activity Paroxysmal Sweats: 2 Orientation: 0-Oriented Tacttile Disturbances: 0-None Auditory Disturbances: 0-None Visual Disturbances: 0-None Headache: 0-None Present CIWA-Ar Total Score: 8 BHS Progress Note (SOAP) Subjective: 39 years old male admitted on 08/14/19 for alcohol withdrawal sx management treating with ativan detox regiment seen by psychiatrist andie seroailyn feeling better ambulating on hallway social with peers in day room encourage the patient to participate behavior and psychosocial therapies as part of recovery Objective: 08/17/19 09:28 Vital Signs Temperature 98.6 F 08/17/19 08:32 Pulse Rate 96 H 08/17/19 08:32 Respiratory Rate 18 08/17/19 08:32 Blood Pressure 136/96 08/17/19 08:32 O2 Sat by Pulse Oximetry (%) Laboratory Last Values WBC 7.1 K/mm3 (4.0-10.0) 08/15/19 07:50 RBC 4.49 M/mm3 (4.00-5.60) 08/15/19 07:50 Hgb 15.3 GM/dL (11.7-16.9) 08/15/19 07:50 Hct 42.9 % (35.4-49) 08/15/19 07:50 MCV 95.7 fl (80-96) 08/15/19 07:50 MCH 34.1 pg (25.7-33.7) H 08/15/19 07:50 MCHC 35.6 g/dl (32.0-35.9) 08/15/19 07:50 RDW 12.1 % (11.9-15.9) 08/15/19 07:50 Plt Count 179 K/MM3 (134-434) D 08/15/19 07:50 MPV 8.7 fl (7.5-11.1) 08/15/19 07:50 Sodium 137 mmol/L (136-145) 08/15/19 07:50 Potassium 3.4 mmol/L (3.5-5.1) L 08/15/19 07:50 Chloride 98 mmol/L (98-107) 08/15/19 07:50 Carbon Dioxide 28 mmol/L (21-32) 08/15/19 07:50 Anion Gap 11 MMOL/L (8-16) 08/15/19 07:50 BUN 7.0 mg/dL (7-18) 08/15/19 07:50 Creatinine 0.6 mg/dL (0.55-1.3) 08/15/19 07:50 Est GFR (CKD-EPI)AfAm 147.82 08/15/19 07:50 Est GFR (CKD-EPI)NonAf 127.55 08/15/19 07:50 Random Glucose 69 mg/dL (74-106) L 08/15/19 07:50 Calcium 8.6 mg/dL (8.5-10.1) 08/15/19 07:50 Total Bilirubin 1.6 mg/dL (0.2-1) H 08/15/19 07:50 AST 111 U/L (15-37) H 08/15/19 07:50 ALT 81 U/L (13-61) H 08/15/19 07:50 Alkaline Phosphatase 64 U/L (45-117) 08/15/19 07:50 Total Protein 7.5 g/dl (6.4-8.2) 08/15/19 07:50 Albumin 3.7 g/dl (3.4-5.0) 08/15/19 07:50 RPR Titer Nonreactive (NONREACTIVE) 08/15/19 07:50 lab noted low K+ encourage K+ rich food 08/17/19 09:28 Assessment: 08/17/19 09:28 alcohol withdrawal Plan: ativan regiment
[2019-08-17] MEDS: PRENATAL VITAMINS W/ FOLIC ACID TABLET (FP) PO SCH (10:39)
[2019-08-17] MEDS: NICOTINE 21 MG/24 HOURS TOPICAL PATCH TD SCH (10:39)
[2019-08-17] MEDS: NICOTINE POLACRILEX 2 MG GUM BUC PRN (10:41)
[2019-08-17 15:13] LABS: EPI CELLS 0.3 /HPF (0-5/HPF); HYALINE CASTS 0 /lpf (0-8); PH,URINE 5.5 (5.0-8.0); URINE APPEARANCE CLEAR; URINE BILIRUBIN NEGATIVE (NEGATIVE); URINE COLOR YELLOW; URINE GLUCOSE (UA) NEGATIVE (NEGATIVE); URINE KETONE NEGATIVE (NEGATIVE); URINE LEUK ESTERASE TRACE (NEGATIVE); URINE NITRITE NEGATIVE (NEGATIVE); URINE PROTEIN NEGATIVE (NEGATIVE); URINE RBC 3 /hpf (0-4); URINE UROBILINOGEN 0.2 mg/dL (0.2-1.0); URINE WBC 7 /hpf (0-5)
[2019-08-17] MEDS: NICOTINE POLACRILEX 4 MG GUM BUC PRN ×3 (15:25→22:19)
[2019-08-17] MEDS: MELATONIN 5 MG TABLETS PO SCH (22:17)
[2019-08-17] MEDS: QUEtiapine FUMARATE 200 MG TABLET PO SCH (22:17)
[2019-08-17] MEDS: THIAMINE HCL 100 MG TABLET (FP) PO SCH (22:17)
[2019-08-18] MEDS ORDERED: LORazepam 0.5 MG TABLET PO PRN
[2019-08-18] MEDS ORDERED: chlordiazePOXIDE HCL 10 MG CAPSULE PO SCH (05:00)
[2019-08-18] MEDS: LORazepam 0.5 MG TABLET PO SCH ×4 (06:06→22:21)
[2019-08-18] MEDS: PRENATAL VITAMINS W/ FOLIC ACID TABLET (FP) PO SCH (10:22)
[2019-08-18] MEDS: NICOTINE 21 MG/24 HOURS TOPICAL PATCH TD SCH (10:23)
[2019-08-18] MEDS: NICOTINE POLACRILEX 4 MG GUM BUC PRN ×3 (10:24→18:38)
--- NOTE | 2019-08-18 11:52 | PN ---
[facility] CIWA - CIWA Score Nausea/Vomitin-No Nausea/No Vomiting Muscle Tremors: 2 Anxiety: 2 Agitation: 0-Normal Activity Paroxysmal Sweats: 1-Minimal Palms Moist Orientation: 0-Oriented Tacttile Disturbances: 0-None Auditory Disturbances: 0-None Visual Disturbances: 0-None Headache: 0-None Present CIWA-Ar Total Score: 5 S Progress Note (SOAP) Subjective: 39 years old male admitted on 08/14/19 for alcohol withdrawal sx management treating with ativan detox regiment feeling better today requests to be discharge tomorrow early around 6 am less tremor mild anxiety Objective: 08/18/19 11:51 Vital Signs Temperature 97.6 F 08/18/19 08:30 Pulse Rate 84 08/18/19 08:30 Respiratory Rate 18 08/18/19 08:30 Blood Pressure 135/88 08/18/19 08:30 O2 Sat by Pulse Oximetry (%) Laboratory Last Values WBC 7.1 K/mm3 (4.0-10.0) 08/15/19 07:50 RBC 4.49 M/mm3 (4.00-5.60) 08/15/19 07:50 Hgb 15.3 GM/dL (11.7-16.9) 08/15/19 07:50 Hct 42.9 % (35.4-49) 08/15/19 07:50 MCV 95.7 fl (80-96) 08/15/19 07:50 MCH 34.1 pg (25.7-33.7) H 08/15/19 07:50 MCHC 35.6 g/dl (32.0-35.9) 08/15/19 07:50 RDW 12.1 % (11.9-15.9) 08/15/19 07:50 Plt Count 179 K/MM3 (134-434) D 08/15/19 07:50 MPV 8.7 fl (7.5-11.1) 08/15/19 07:50 Sodium 137 mmol/L (136-145) 08/15/19 07:50 Potassium 3.4 mmol/L (3.5-5.1) L 08/15/19 07:50 Chloride 98 mmol/L (98-107) 08/15/19 07:50 Carbon Dioxide 28 mmol/L (21-32) 08/15/19 07:50 Anion Gap 11 MMOL/L (8-16) 08/15/19 07:50 BUN 7.0 mg/dL (7-18) 08/15/19 07:50 Creatinine 0.6 mg/dL (0.55-1.3) 08/15/19 07:50 Est GFR (CKD-EPI)AfAm 147.82 08/15/19 07:50 Est GFR (CKD-EPI)NonAf 127.55 08/15/19 07:50 Random Glucose 69 mg/dL (74-106) L 08/15/19 07:50 Calcium 8.6 mg/dL (8.5-10.1) 08/15/19 07:50 Total Bilirubin 1.6 mg/dL (0.2-1) H 08/15/19 07:50 AST 111 U/L (15-37) H 08/15/19 07:50 ALT 81 U/L (13-61) H 08/15/19 07:50 Alkaline Phosphatase 64 U/L (45-117) 08/15/19 07:50 Total Protein 7.5 g/dl (6.4-8.2) 08/15/19 07:50 Albumin 3.7 g/dl (3.4-5.0) 08/15/19 07:50 Urine Color Yellow 08/17/19 10:45 Urine Appearance Clear 08/17/19 10:45 Urine pH 5.5 (5.0-8.0) 08/17/19 10:45 Ur Specific Gray 1.024 (1.010-1.035) 08/17/19 10:45 Urine Protein Negative (NEGATIVE) 08/17/19 10:45 Urine Glucose (UA) Negative (NEGATIVE) 08/17/19 10:45 Urine Ketones Negative (NEGATIVE) 08/17/19 10:45 Urine Blood Negative (NEGATIVE) 08/17/19 10:45 Urine Nitrite Negative (NEGATIVE) 08/17/19 10:45 Urine Bilirubin Negative (NEGATIVE) 08/17/19 10:45 Urine Urobilinogen 0.2 mg/dL (0.2-1.0) 08/17/19 10:45 Ur Leukocyte Esterase Trace (NEGATIVE) 08/17/19 10:45 Urine WBC (Auto) 7 /hpf (0-5) 08/17/19 10:45 Urine RBC (Auto) 3 /hpf (0-4) 08/17/19 10:45 Urine Casts (Auto) 0 /lpf (0-8) 08/17/19 10:45 U Epithel Cells (Auto) 0.3 /HPF (0-5/HPF) 08/17/19 10:45 Urine Bacteria (Auto) 1.0 /hpf (NEGATIVE) 08/17/19 10:45 RPR Titer Nonreactive (NONREACTIVE) 08/15/19 07:50 T.pallidum Ab Interpret Cancelled 08/15/19 07:50 lab noted encourage K+ rich food alcohol induced ast elevation Assessment: 08/18/19 11:52 alcohol withdrawal Plan: ativen regiment
[2019-08-18] MEDS: QUEtiapine FUMARATE 200 MG TABLET PO SCH (21:44)
[2019-08-18] MEDS: THIAMINE HCL 100 MG TABLET (FP) PO SCH (21:45)
[2019-08-18] MEDS: MELATONIN 5 MG TABLETS PO SCH (22:21)
[2019-08-19] MEDS ORDERED: LORazepam 0.5 MG TABLET PO ONE (05:00)
[2019-08-19] MEDS ORDERED: chlordiazePOXIDE HCL 10 MG CAPSULE PO ONE (05:00)
[2019-08-19 06:26] VITALS: BP 112/72; PULSE 66; TEMP 97.3
== END 2019-08-19 06:44 | disposition home or self-care (01) | DRG 775 ==
LOC: YASAS 15:56 → Y3N 22:34
PROVIDERS: ADMIT Allergy & Immunology; ATTEND Allergy & Immunology
PROC: HZ2ZZZZ Detoxification Services for Substance Abuse Treatment (ICD-10-PCS; principal; 2019-08-14)
DX: F10.230 Alcohol dependence with withdrawal, uncomplicated (principal); F16.20 Hallucinogen dependence, uncomplicated; F12.20 Cannabis dependence, uncomplicated; F17.210 Nicotine dependence, cigarettes, uncomplicated; F19.282 Other psychoactive substance dependence with psychoactive substance-induced sleep disorder; F19.24 Other psychoactive substance dependence with psychoactive substance-induced mood disorder; F31.9 Bipolar disorder, unspecified; F39 Unspecified mood [affective] disorder; F41.9 Anxiety disorder, unspecified; I10 Essential (primary) hypertension; E87.6 Hypokalemia; G40.909 Epilepsy, unspecified, not intractable, without status epilepticus; R74.0 Nonspecific elevation of levels of transaminase and lactic acid dehydrogenase [LDH]; Z87.820 Personal history of traumatic brain injury; S09.8XXD Other specified injuries of head, subsequent encounter; W22.01XD Walked into wall, subsequent encounter; Z56.0 Unemployment, unspecified; Z59.0 Homelessness
CPT/HCPCS: 36415; 80053; 81003; 85027; 86593; 93005; 93010; Q0162

== ENCOUNTER 2019-08-14 17:04 | Emergency (ER) | payer OTHER ==
--- NOTE | 2019-08-14 17:13 | PDOC ---
History of Present Illness - History of Present Illness Initial Comments: 08/14/19 17:10 39 yo M PMH HTN, anxiety on Seroquel (ran out one month ago), alcohol and K2 abuse, prior TBIs, presenting after hitting his head. Was just seen in the ER and sent to [facility] for detox. Per mom, patient went outside to smoke a ci garette while he was being registered, walked back in, didn't turn his head fast enough to see the wall, and hit his head on the wall. Did not fall again afterwards. No other complaints or trauma. <Denny Mirza - Last Filed: 08/14/19 17:10> <Nakia Patel - Last Filed: 08/19/19 13:04> - General Chief Complaint: Injury Stated Complaint: HEAD INJURY Time Seen by Provider: 08/14/19 17:07 Past History - Past Medical History Anemia: No Asthma: No Cancer: No Cardiac Disorders: No CVA: No COPD: No CHF: No Dementia: No Diabetes: No GI Disorders: No Disorders: No HTN: Yes (not on meds ) Hypercholesterolemia: No Kidney Stones: No Liver Disease: No Seizures: Yes (childhood seizures, reports last episode 6 months ago ) Thyroid Disease: No - Surgical History Abdominal Surgery: No Appendectomy: No Cardiac Surgery: No Cholecystectomy: No Lung Surgery: No Neurologic Surgery: No Orthopedic Surgery: No - Reproductive History Testicular Surgery: No - Immunization History Immunization Up to Date: Yes - Psycho Social/Smoking Cessation Hx Smoking History: Current every day smoker Have you smoked in the past 12 months: Yes Number of Cigarettes Smoked Daily: 40 'Breaking Loose' booklet given: 11/09/18 Hx Alcohol Use: Yes Drug/Substance Use Hx: Yes Substance Use Type: Alcohol Hx Substance Use Treatment: Yes ([facility] 03/03/18 to 03/06/18) <Denny Mirza - Last Filed: 08/14/19 17:10> <Nakia Patel - Last Filed: 08/19/19 13:04> - Past Medical History Allergies/Adverse Reactions: Allergies Allergy/AdvReac Type Severity Reaction Status Date / Time No Known Allergies Allergy Verified 08/14/19 12:56 Home Medications: Ambulatory Orders Melatonin 10 mg PO HS 08/14/19 Quetiapine Fumarate [Seroquel -] 200 mg PO HS 08/14/19 Review of Systems - Review of Systems Comments:: 08/14/19 17:12 Reports that his anxiety and withdrawal symptoms are improved. <Denny Mirza - Last Filed: 08/14/19 17:10> *Physical Exam - Physical Exam 08/14/19 17:12 Gen: well-developed, well-nourished, NAD Neuro: AAOX4, CN II-XII intact, FTN intact, EOMI, PERRLA, 5/5 strength, SILT HEENT: R sided mild scalp hematoma Neck: trachea midline, supple CV: regular rate, regular rhythm, no murmurs, rubs, or gallops Pulm: CTA b/l, no wheezing Abd: soft, non-distended, non-tender MSK: full ROM, intact pulses Extr: no edema, no deformities Skin: warm, dry <Denny Mirza - Last Filed: 08/14/19 17:10> - Vital Signs Last Vital Signs Temp Pulse Resp BP Pulse Ox 97.9 F 86 20 128/78 99 08/14/19 19:56 08/14/19 19:56 08/14/19 19:56 08/14/19 19:56 08/14/19 19:56 <Nakia Patel - Last Filed: 08/19/19 13:04> Medical Decision Making - Medical Decision Making 08/14/19 17:12 Alcoholic with head trauma. - CT head - CT C spine - dc to [facility] <Denny Mirza - Last Filed: 08/14/19 17:10> Discharge - Discharge Information Problems reviewed: Yes - Admission No <Denny Mirza - Last Filed: 08/14/19 17:10> - Admission No <Nakia Patel - Last Filed: 08/19/19 13:04> - Discharge Information Clinical Impression/Diagnosis: Walked into wall Qualifiers: Encounter type: subsequent encounter Qualified Code(s): W22.01XD - Walked into wall, subsequent encounter Closed head injury Qualifiers: Encounter type: subsequent encounter Qualified Code(s): S09.90XD - Unspecified injury of head, subsequent encounter Condition: Stable Disposition: HOME - Patient Discharge Instructions Patient Printed Discharge Instructions: How to Prevent Falls Additional Instructions: You were seen today after striking your head on the door at [facility]. The CT of your head and your upper neck did not show any new injury. You do have mild spinal degeneration. This is not likely to be related to what happened today. You can discuss this further with your primary care doctor. All of todays results are attached to this packet. Take it to your next doctors appointment so he/she can review them. Good luck at [facility] with your detox process! Print Language: KYRGYZ
[2019-08-14 17:14] VITALS: BMI 29.0
--- NOTE | 2019-08-14 17:14 | PDOC ---
Attending Attestation - Resident Resident Name: Denny Mirza - ED Attending Attestation I have performed the following: I have examined & evaluated the patient, The case was reviewed & discussed with the resident, I agree w/resident's findings & plan - HPI HPI: 08/14/19 17:14 39 yo M PMH HTN, anxiety on Seroquel (ran out one month ago), alcohol and K2 abuse, prior TBIs, presenting after hitting his head. Was just seen in the ER and sent to [facility] for detox. Per mom, patient went outside to smoke a cigarette while he was being registered, walked back in, didn't turn his head fast enough to see the wall, and hit his head on the wall. Did not fall again afterwards. No other complaints or trauma. - Physicial Exam PE: 08/14/19 17:14 Agree with the resident's HPI and PE as documented in the electronic medical record. NAD, well appearing, R sided mild scalp hematoma - EOMI, PERRL, nl conjunctiva, anicteric; neck supple. lungs clear, RRR, abdomen soft nontender. no rebound, guarding. Back nontender. CLEMENTS x4, no focal neuro deficits. speech clear. No peripheral edema. normal color for ethnicity, WWP. no wounds or ecchymosis or skin lacerations. 08/14/19 19:31 - Medical Decision Making 08/14/19 17:14 Vital Signs Temp Pulse Resp BP Pulse Ox 97.3 F L 81 20 133/82 99 08/14/19 17:09 08/14/19 17:09 08/14/19 17:09 08/14/19 17:09 08/14/19 17:09 vitals wnl, reassuring GCS 15, comfortable. ddx ICH, epidural, SDH, cervical spine injury, contusion, hematoma CT head and C-spine were negative for acute fracture or dislocation, no head bleed. There is mild degenerative changes at C6-7, otherwise no acute osseous injuries noted. pt is comfortable, NAD, neuro intact. Transfer back to [facility] for his detox. 08/14/19 19:30 08/14/19 19:31
--- NOTE | 2019-08-14 19:21 | PDOC ---
*Physical Exam - Vital Signs Last Vital Signs Temp Pulse Resp BP Pulse Ox 97.3 F L 81 20 133/82 99 08/14/19 17:09 08/14/19 17:09 08/14/19 17:09 08/14/19 17:09 08/14/19 17:09 <Carlos - Last Filed: 08/14/19 19:38> - Vital Signs Last Vital Signs Temp Pulse Resp BP Pulse Ox 97.9 F 86 20 128/78 99 08/14/19 19:56 08/14/19 19:56 08/14/19 19:56 08/14/19 19:56 08/14/19 19:56 <Nakia Patel - Last Filed: 08/14/19 20:11> Medical Decision Making - Medical Decision Making Received sign out from resident Dr. Mirza. In short, pt is a 39 y/o male presenting with s/p striking head on door at [facility]. Will f/u pending HCT. Anticipate discharged to [facility] for further rehab. Reviewed head and cervical CT results. No acute fractures or dislocation. No ICH. Will discharge pt to [facility] for further addiction rehabilitation and monitoring. 14 Aug 2019 19:36 PM Telephone discussion with FABIAN Holcomb. Verbally appraised of the pts HPI, ED course, and current plan of management. Will accept the pt back to [facility]. <BishopCarlos - Last Filed: 08/14/19 19:38> Discharge - Discharge Information Problems reviewed: Yes - Admission No <Carlos Wheat - Last Filed: 08/14/19 19:38> <Nakia Patel - Last Filed: 08/14/19 20:11> - Discharge Information Clinical Impression/Diagnosis: Walked into wall Qualifiers: Encounter type: initial encounter Qualified Code(s): W22.01XA - Walked into wall, initial encounter Closed head injury Qualifiers: Encounter type: initial encounter Qualified Code(s): S09.90XA - Unspecified injury of head, initial encounter Condition: Stable Disposition: HOME - Patient Discharge Instructions Patient Printed Discharge Instructions: How to Prevent Falls Additional Instructions: You were seen today after striking your head on the door at [facility]. The CT of your head and your upper neck did not show any new injury. You do have mild spinal degeneration. This is not likely to be related to what happened today. You can discuss this further with your primary care doctor. All of todays results are attached to this packet. Take it to your next do ctors appointment so he/she can review them. Good luck at [facility] with your detox process! Print Language: ANGOLAN
[2019-08-14 19:57] VITALS: BP 128/78; PULSE 86; TEMP 97.9
== END 2019-08-14 20:34 | disposition home or self-care (01) ==
LOC: JER 17:04
DX: S09.8XXA Other specified injuries of head, initial encounter (principal); W22.01XA Walked into wall, initial encounter; Y93.89 Activity, other specified; Y92.238 Other place in hospital as the place of occurrence of the external cause; Y99.8 Other external cause status; I10 Essential (primary) hypertension; F41.9 Anxiety disorder, unspecified; Z87.820 Personal history of traumatic brain injury; F19.20 Other psychoactive substance dependence, uncomplicated
CPT/HCPCS: 70450-TC; 72125-TC; 99284-25

== ENCOUNTER 2021-05-13 13:08 | Inpatient (IN) | payer OTHER ==
[2021-05-13 13:51] VITALS: BMI 26.3
[2021-05-13] MEDS ORDERED: ONDANSETRON *ODT* 4 MG TABLET SL PRN (16:24)
[2021-05-13] MEDS ORDERED: IBUPROFEN 400 MG TABLET (FP) PO PRN (16:24)
[2021-05-13] MEDS ORDERED: BISMUTH SUBSALICYLATE 524 MG/30 ML PO PRN (16:24)
[2021-05-13] MEDS ORDERED: MAGNESIUM CITRATE 300 ML BOTTLE PO PRN (16:24)
[2021-05-13] MEDS ORDERED: MENTHOL/PHENOL 1 EACH UD MM PRN (16:24)
[2021-05-13] MEDS ORDERED: NICOTINE 10 MG CARTRIDGE (INHALER) IH PRN (16:24)
[2021-05-13] MEDS ORDERED: MAGNESIUM HYDROX 2400MG/30ML ORAL SUSPENSION 30 ML CUP PO PRN (16:24)
[2021-05-13] MEDS ORDERED: ACETAMINOPHEN 325 MG TABLET (FP) PO PRN ×2 (16:24)
[2021-05-13] MEDS ORDERED: chlordiazePOXIDE HCL 25 MG CAPSULE PO PRN (16:24)
[2021-05-13] MEDS ORDERED: METHOCARBAMOL 500 MG TABLET PO PRN (16:24)
[2021-05-13] MEDS ORDERED: MAG HYDROX/AL HYDROX/SIMETH 30 ML UNIT-DOSE CUP PO PRN (16:24)
[2021-05-13] MEDS: chlordiazePOXIDE HCL 25 MG CAPSULE PO SCH ×2 (17:31→22:24)
[2021-05-13] MEDS: hydrOXYzine PAMOATE 25 MG CAPSULE (FP) PO SCH ×2 (17:32→22:23)
[2021-05-13] MEDS: THIAMINE HCL 100 MG TABLET (FP) PO SCH (22:23)
[2021-05-13] MEDS: MELATONIN 5 MG TABLETS PO SCH (22:23)
[2021-05-13] MEDS: BACITRACIN 0.9 GM PACKET TP SCH (22:23)
[2021-05-14] MEDS: hydrOXYzine PAMOATE 25 MG CAPSULE (FP) PO SCH ×5 (05:56→22:39)
[2021-05-14] MEDS: chlordiazePOXIDE HCL 25 MG CAPSULE PO SCH ×4 (05:57→22:40)
[2021-05-14] MEDS ORDERED: PRENATAL VITAMINS W/ FOLIC ACID TABLET (FP) PO SCH (10:00)
[2021-05-14] MEDS: TOLNAFTATE 1% CREAM 15 GM TUBE TP SCH ×2 (10:40→22:39)
[2021-05-14] MEDS: BACITRACIN 0.9 GM PACKET TP SCH ×2 (10:44→22:38)
[2021-05-14 13:04] LABS: HEMATOCRIT 45.2 % (35.4-49); HEMOGLOBIN 15.6 GM/dL (11.7-16.9); MCH 33.7 pg (25.7-33.7); MCHC 34.5 g/dl (32.0-35.9); MEAN CELL VOLUME 97.9 fl (80-96); MEAN PLT VOLUME 8.4 fl (7.5-11.1); PLATELET COUNT 248 10^3/uL (134-434); RBC 4.62 M/mm3 (4.00-5.60); RDW 13.4 % (11.9-15.9); WHITE BLOOD COUNT 6.2 K/mm3 (4.0-10.0)
[2021-05-14 13:18] LABS: ALBUMIN 3.8 g/dl (3.4-5.0); BLOOD UREA NITROGEN 11.1 mg/dL (7-18); CALCIUM 9.2 mg/dL (8.5-10.1)
[2021-05-14 13:21] LABS: CREATININE 0.8 mg/dL (0.55-1.3)
[2021-05-14 13:23] LABS: BILIRUBIN,TOTAL 1.1 mg/dL (0.2-1); TOT PROT 7.4 g/dl (6.4-8.2)
[2021-05-14 13:35] LABS: EPI CELLS 7 /uL (0-25.1); HYALINE CASTS 3 /uL (0-3.1); PH,URINE 6.5 (5.0-8.0); URINE APPEARANCE CLEAR; URINE BACTERIA 26 /uL (0-1359); URINE BILIRUBIN NEGATIVE (NEGATIVE); URINE COLOR DK YELLOW; URINE GLUCOSE (UA) NEGATIVE (NEGATIVE); URINE KETONE TRACE (NEGATIVE); URINE LEUK ESTERASE TRACE (NEGATIVE); URINE NITRITE NEGATIVE (NEGATIVE); URINE PROTEIN NEGATIVE (NEGATIVE); URINE RBC 5 /uL (0-23.9); URINE WBC 26 /uL (0-25.8)
[2021-05-14] MEDS: MELATONIN 5 MG TABLETS PO SCH (22:38)
[2021-05-14] MEDS: THIAMINE HCL 100 MG TABLET (FP) PO SCH (22:39)
[2021-05-15] MEDS ORDERED: chlordiazePOXIDE HCL 25 MG CAPSULE PO SCH (05:00)
[2021-05-15] MEDS: hydrOXYzine PAMOATE 25 MG CAPSULE (FP) PO SCH (06:18)
[2021-05-15 06:53] VITALS: BP 129/80; PULSE 62; TEMP 96.2
[2021-05-15 12:35] LABS: HIV INTERPRETATION NEGATIVE (NEGATIVE)
[2021-05-16] MEDS ORDERED: chlordiazePOXIDE HCL 10 MG CAPSULE PO PRN
[2021-05-16] MEDS ORDERED: chlordiazePOXIDE HCL 10 MG CAPSULE PO SCH (05:00)
[2021-05-17] MEDS ORDERED: chlordiazePOXIDE HCL 10 MG CAPSULE PO SCH (05:00)
[2021-05-18] MEDS ORDERED: chlordiazePOXIDE HCL 10 MG CAPSULE PO ONE (05:00)
== END 2021-05-15 10:00 | disposition left against medical advice (07) | DRG 770 ==
LOC: YASAS 13:08 → Y3N 16:21
PROVIDERS: ADMIT Allergy & Immunology; ATTEND Allergy & Immunology
PROC: HZ2ZZZZ Detoxification Services for Substance Abuse Treatment (ICD-10-PCS; principal; 2021-05-13)
DX: F10.230 Alcohol dependence with withdrawal, uncomplicated (principal); F14.20 Cocaine dependence, uncomplicated; F16.20 Hallucinogen dependence, uncomplicated; R63.4 Abnormal weight loss; R74.01 Elevation of levels of liver transaminase levels; G47.00 Insomnia, unspecified; Z87.820 Personal history of traumatic brain injury; Z86.69 Personal history of other diseases of the nervous system and sense organs; Z56.0 Unemployment, unspecified; Z59.00 Homelessness unspecified
CPT/HCPCS: 36415; 80053; 81003; 85027; 86780; 86803; 87389; C9803; U0003; U0005

== ENCOUNTER 2021-08-21 14:50 | Inpatient (IN) | payer OTHER ==
[2021-08-21] MEDS ORDERED: ACETAMINOPHEN 325 MG TABLET (FP) PO PRN ×2 (15:27)
[2021-08-21] MEDS ORDERED: MENTHOL/PHENOL 1 EACH UD MM PRN (15:27)
[2021-08-21] MEDS ORDERED: chlordiazePOXIDE HCL 25 MG CAPSULE PO PRN (15:27)
[2021-08-21] MEDS ORDERED: MAGNESIUM CITRATE 300 ML BOTTLE PO PRN (15:27)
[2021-08-21] MEDS ORDERED: IBUPROFEN 400 MG TABLET (FP) PO PRN (15:27)
[2021-08-21] MEDS ORDERED: BISMUTH SUBSALICYLATE 524 MG/30 ML PO PRN (15:27)
[2021-08-21] MEDS ORDERED: ONDANSETRON *ODT* 4 MG TABLET SL PRN (15:27)
[2021-08-21] MEDS ORDERED: MAG HYDROX/AL HYDROX/SIMETH 30 ML UNIT-DOSE CUP PO PRN (15:27)
[2021-08-21] MEDS ORDERED: MAGNESIUM HYDROX 2400MG/30ML ORAL SUSPENSION 30 ML CUP PO PRN (15:27)
[2021-08-21] MEDS ORDERED: LOPERAMIDE HCL 2 MG CAPSULE PO PRN (15:27)
[2021-08-21 20:46] VITALS: BMI 22.2
[2021-08-21] MEDS: METHOCARBAMOL 500 MG TABLET PO PRN (20:57)
[2021-08-21] MEDS: NICOTINE 14 MG/24 HOURS TOPICAL PATCH TD SCH (21:02)
[2021-08-21] MEDS: PRENATAL VITAMINS W/ FOLIC ACID TABLET (FP) PO SCH (21:02)
[2021-08-21] MEDS: chlordiazePOXIDE HCL 25 MG CAPSULE PO SCH ×3 (22:24→22:38)
[2021-08-21] MEDS: MELATONIN 5 MG TABLETS PO SCH (22:24)
[2021-08-21] MEDS: THIAMINE HCL 100 MG TABLET (FP) PO SCH (22:24)
[2021-08-21] MEDS: hydrOXYzine PAMOATE 25 MG CAPSULE (FP) PO SCH ×2 (22:25→22:26)
[2021-08-22] MEDS: chlordiazePOXIDE HCL 25 MG CAPSULE PO SCH ×4 (06:22→22:17)
[2021-08-22] MEDS: hydrOXYzine PAMOATE 25 MG CAPSULE (FP) PO SCH ×5 (06:22→22:17)
[2021-08-22] MEDS: PRENATAL VITAMINS W/ FOLIC ACID TABLET (FP) PO SCH (10:18)
[2021-08-22] MEDS: NICOTINE 14 MG/24 HOURS TOPICAL PATCH TD SCH (10:19)
[2021-08-22] MEDS: METHOCARBAMOL 500 MG TABLET PO PRN (10:19)
[2021-08-22 11:44] LABS: HEMATOCRIT 46.7 % (35.4-49); HEMOGLOBIN 16.3 GM/dL (11.7-16.9); MCH 34.2 pg (25.7-33.7); MCHC 34.9 g/dl (32.0-35.9); MEAN CELL VOLUME 97.9 fl (80-96); MEAN PLT VOLUME 8.8 fl (7.5-11.1); PLATELET COUNT 181 10^3/uL (134-434); RBC 4.78 M/mm3 (4.00-5.60); RDW 13.9 % (11.9-15.9); WHITE BLOOD COUNT 4.5 K/mm3 (4.0-10.0)
[2021-08-22 11:59] LABS: ALBUMIN 3.9 g/dl (3.4-5.0); BLOOD UREA NITROGEN 14.2 mg/dL (7-18)
[2021-08-22 12:01] LABS: BILIRUBIN,TOTAL 1.3 mg/dL (0.2-1); TOT PROT 6.9 g/dl (6.4-8.2)
[2021-08-22 12:02] LABS: CREATININE 0.7 mg/dL (0.55-1.3)
[2021-08-22 12:48] LABS: HIV INTERPRETATION NEGATIVE (NEGATIVE)
[2021-08-22] MEDS ORDERED: FLU VACC QS2021-22(6MOS UP)/PF 60 MCG/0.5 ML SYRINGE IM ONE (13:00)
[2021-08-22] MEDS ORDERED: POTASSIUM CHLORIDE ORAL LIQUID 20 MEQ/15 ML PO ONE (13:26)
[2021-08-22] MEDS: POTASSIUM CHLORIDE ORAL LIQUID 20 MEQ/15 ML PO SCH (22:17)
[2021-08-22] MEDS: MELATONIN 5 MG TABLETS PO SCH (22:17)
[2021-08-22] MEDS: THIAMINE HCL 100 MG TABLET (FP) PO SCH (22:17)
[2021-08-23] MEDS: chlordiazePOXIDE HCL 25 MG CAPSULE PO SCH ×4 (06:03→22:55)
[2021-08-23] MEDS: hydrOXYzine PAMOATE 25 MG CAPSULE (FP) PO SCH ×5 (06:03→22:54)
[2021-08-23 10:29] LABS: ALBUMIN 3.7 g/dl (3.4-5.0); CALCIUM 8.8 mg/dL (8.5-10.1)
[2021-08-23 10:30] LABS: BLOOD UREA NITROGEN 14.1 mg/dL (7-18)
[2021-08-23 10:31] LABS: CREATININE 0.7 mg/dL (0.55-1.3)
[2021-08-23 10:33] LABS: BILIRUBIN,TOTAL 0.8 mg/dL (0.2-1); TOT PROT 6.8 g/dl (6.4-8.2)
[2021-08-23] MEDS: METHOCARBAMOL 500 MG TABLET PO PRN ×2 (10:48→18:02)
[2021-08-23] MEDS: PRENATAL VITAMINS W/ FOLIC ACID TABLET (FP) PO SCH (10:48)
[2021-08-23] MEDS: POTASSIUM CHLORIDE ORAL LIQUID 20 MEQ/15 ML PO SCH ×2 (10:48→22:55)
[2021-08-23] MEDS: NICOTINE 14 MG/24 HOURS TOPICAL PATCH TD SCH (10:51)
[2021-08-23 14:08] LABS: SARS-CoV-2 NAA Not Detected (Not Detected)
[2021-08-23] MEDS: NICOTINE 10 MG CARTRIDGE (INHALER) IH PRN (16:50)
[2021-08-23] MEDS: THIAMINE HCL 100 MG TABLET (FP) PO SCH (22:54)
[2021-08-23] MEDS: MELATONIN 5 MG TABLETS PO SCH (22:54)
[2021-08-24] MEDS ORDERED: chlordiazePOXIDE HCL 10 MG CAPSULE PO PRN
[2021-08-24] MEDS: hydrOXYzine PAMOATE 25 MG CAPSULE (FP) PO SCH ×5 (06:34→22:39)
[2021-08-24] MEDS: chlordiazePOXIDE HCL 10 MG CAPSULE PO SCH ×4 (06:35→22:39)
[2021-08-24] MEDS: METHOCARBAMOL 500 MG TABLET PO PRN ×2 (10:26→18:14)
[2021-08-24] MEDS: PRENATAL VITAMINS W/ FOLIC ACID TABLET (FP) PO SCH (10:26)
[2021-08-24] MEDS: NICOTINE 14 MG/24 HOURS TOPICAL PATCH TD SCH (10:30)
[2021-08-24] MEDS: MELATONIN 5 MG TABLETS PO SCH (22:39)
[2021-08-24] MEDS: NICOTINE 10 MG CARTRIDGE (INHALER) IH PRN (22:39)
[2021-08-24] MEDS: THIAMINE HCL 100 MG TABLET (FP) PO SCH (22:39)
[2021-08-25] MEDS: chlordiazePOXIDE HCL 10 MG CAPSULE PO SCH ×2 (06:42→18:13)
[2021-08-25] MEDS: hydrOXYzine PAMOATE 25 MG CAPSULE (FP) PO SCH ×5 (06:42→22:12)
[2021-08-25] MEDS: NICOTINE 14 MG/24 HOURS TOPICAL PATCH TD SCH (10:03)
[2021-08-25] MEDS: METHOCARBAMOL 500 MG TABLET PO PRN ×2 (10:04→22:12)
[2021-08-25] MEDS: PRENATAL VITAMINS W/ FOLIC ACID TABLET (FP) PO SCH (10:04)
[2021-08-25] MEDS: THIAMINE HCL 100 MG TABLET (FP) PO SCH (22:12)
[2021-08-25] MEDS: MELATONIN 5 MG TABLETS PO SCH (22:12)
[2021-08-26] MEDS ORDERED: chlordiazePOXIDE HCL 10 MG CAPSULE PO ONE (05:00)
[2021-08-26] MEDS: hydrOXYzine PAMOATE 25 MG CAPSULE (FP) PO SCH (05:52)
[2021-08-26 09:12] VITALS: BP 117/56; PULSE 66; TEMP 98.3
== END 2021-08-26 09:34 | disposition home or self-care (01) | DRG 774 ==
LOC: YASAS 14:50 → Y6N 19:38
PROVIDERS: ADMIT Allergy & Immunology; ATTEND Allergy & Immunology
PROC: HZ2ZZZZ Detoxification Services for Substance Abuse Treatment (ICD-10-PCS; principal; 2021-08-21)
DX: F10.230 Alcohol dependence with withdrawal, uncomplicated (principal); F14.20 Cocaine dependence, uncomplicated; F16.20 Hallucinogen dependence, uncomplicated; F17.210 Nicotine dependence, cigarettes, uncomplicated; F31.9 Bipolar disorder, unspecified; F19.24 Other psychoactive substance dependence with psychoactive substance-induced mood disorder; E87.6 Hypokalemia; G40.909 Epilepsy, unspecified, not intractable, without status epilepticus; R74.01 Elevation of levels of liver transaminase levels; R63.4 Abnormal weight loss; Z68.22 Body mass index [BMI] 22.0-22.9, adult; Z87.820 Personal history of traumatic brain injury; Z59.00 Homelessness unspecified; Z56.0 Unemployment, unspecified
CPT/HCPCS: 36415; 80053; 85027; 86780; 87389; 90686; C9803-CS; G0008; Q0162; U0003; U0005

== ENCOUNTER 2021-09-20 17:06 | Emergency (ER) | payer OTHER ==
[2021-09-20 17:23] VITALS: BP 144/98; PULSE 88; TEMP 97.9; BMI 25.0
[2021-09-20] MEDS ORDERED: FAMOTIDINE 20 MG/50 ML IVPB 20 MG/50 ML MG IVPB ONE (17:40)
[2021-09-20] MEDS ORDERED: SODIUM CHLORIDE 0.9% 500 ML INFUS.BAG IV ONE (17:40)
[2021-09-20] MEDS ORDERED: chlordiazePOXIDE HCL 25 MG CAPSULE PO ONE ×2 (17:40→18:22)
[2021-09-20] MEDS ORDERED: ONDANSETRON 4 MG/2 ML VIAL IVPUSH ONE (17:40)
[2021-09-20] MEDS ORDERED: ACETAMINOPHEN 1000 MG/100 ML BAG IVPB ONE (17:46)
[2021-09-20] MEDS ORDERED: ONDANSETRON 4 MG/2 ML VIAL ONE (18:04)
[2021-09-20] MEDS ORDERED: ACETAMINOPHEN INJECTION 100 ML IVPB ONE (18:04)
[2021-09-20] MEDS ORDERED: FAMOTIDINE 10 MG TABLET PO ONE (18:13)
[2021-09-20] MEDS ORDERED: ACETAMINOPHEN 500 MG TABLET (FP) PO ONE (18:13)
[2021-09-20] MEDS ORDERED: ONDANSETRON *ODT* 4 MG TABLET SL ONE (18:13)
[2021-09-20] MEDS ORDERED: MAG HYDROX/AL HYDROX/SIMETH -MYLANTA- ORAL SUSPENSION PO ONE (18:14)
[2021-09-20] MEDS ORDERED: MAG HYDROX/AL HYDROX/SIMETH 30 ML UNIT-DOSE CUP ONE (18:20)
[2021-09-20] MEDS ORDERED: ACETAMINOPHEN 325 MG TABLET (FP) ONE (18:20)
[2021-09-20] MEDS ORDERED: ONDANSETRON *ODT* 4 MG TABLET ONE (18:20)
[2021-09-20] MEDS ORDERED: chlordiazePOXIDE HCL 25 MG CAPSULE ONE (18:23)
[2021-09-20 19:15] LABS: BASO % 0.9 % (0-2.0); EOS % 1.1 % (0-4.5); HEMATOCRIT 48.5 % (35.4-49); HEMOGLOBIN 16.7 GM/dL (11.7-16.9); LYMPH % 27.8 % (8-40); MCH 33.8 pg (25.7-33.7); MCHC 34.5 g/dl (32.0-35.9); MEAN CELL VOLUME 97.8 fl (80-96); MEAN PLT VOLUME 9.3 fl (7.5-11.1); NEUT % 63.2 % (42.8-82.8); PLATELET COUNT 160 10^3/uL (134-434); RBC 4.95 M/mm3 (4.00-5.60); RDW 13.8 % (11.9-15.9); WHITE BLOOD COUNT 6.2 K/mm3 (4.0-10.0)
[2021-09-20 19:42] LABS: PH,URINE 7.5 (5.0-8.0); URINE APPEARANCE CLEAR; URINE BILIRUBIN NEGATIVE (NEGATIVE); URINE COLOR YELLOW; URINE GLUCOSE (UA) NEGATIVE (NEGATIVE); URINE KETONE NEGATIVE (NEGATIVE); URINE LEUK ESTERASE NEGATIVE (NEGATIVE); URINE NITRITE NEGATIVE (NEGATIVE); URINE PROTEIN 1+ (NEGATIVE); URINE UROBILINOGEN 0.2 mg/dL (0.2-1.0)
[2021-09-20 19:44] LABS: CALCIUM 9.3 mg/dL (8.5-10.1)
[2021-09-20 19:45] LABS: ALBUMIN 4.5 g/dl (3.4-5.0); BLOOD UREA NITROGEN 5.4 mg/dL (7-18)
[2021-09-20 19:48] LABS: CREATININE 0.7 mg/dL (0.55-1.3)
[2021-09-20 19:49] LABS: TOT PROT 8.5 g/dl (6.4-8.2)
[2021-09-20 19:50] LABS: BILIRUBIN,TOTAL 0.8 mg/dL (0.2-1)
[2021-09-20 20:32] LABS: METHADONE, UR NEGATIVE (NEGATIVE); OPIATES, URI NEGATIVE (NEGATIVE); URINE BENZODIAZEPINES NEGATIVE (NEGATIVE)
[2021-09-20 20:53] LABS: URINE AMPHETAMINES NEGATIVE (NEGATIVE)
[2021-09-20 20:54] LABS: COCAINE, UR NEGATIVE (NEGATIVE); PHENCYCLIDINE,URINE POSITIVE (NEGATIVE); URINE BARBITURATES NEGATIVE (NEGATIVE)
[2021-09-20 22:48] LABS: EPI CELLS 1.9 /uL (0-25.1); URINE RBC 1.2 /uL (0-23.9); URINE WBC 1.5 /uL (0-25.8)
== END 2021-09-20 18:50 | disposition left against medical advice (07) ==
LOC: JER 17:06
DX: F10.10 Alcohol abuse, uncomplicated (principal)
CPT/HCPCS: 36415; 71045-TC-FY; 80053; 80307; 81003; 83690; 85025; 87086; 99284-25; Q0162

== ENCOUNTER 2021-11-23 11:40 | Inpatient (IN) | payer OTHER ==
[2021-11-23 11:55] VITALS: BMI 23.5
[2021-11-23] MEDS ORDERED: NICOTINE 10 MG CARTRIDGE (INHALER) IH PRN (12:15)
[2021-11-23] MEDS ORDERED: LOPERAMIDE HCL 2 MG CAPSULE PO PRN (12:15)
[2021-11-23] MEDS ORDERED: BISMUTH SUBSALICYLATE 262 MG/15 ML BTL PO PRN (12:15)
[2021-11-23] MEDS ORDERED: IBUPROFEN 600 MG TABLET (FP) PO PRN (12:15)
[2021-11-23] MEDS ORDERED: BENZOCAINE/MENTHOL (CHLORASEPTIC ) LOZENGE MM PRN (12:15)
[2021-11-23] MEDS ORDERED: MAGNESIUM HYDROX 2400MG/30ML ORAL SUSPENSION 30 ML CUP PO PRN (12:15)
[2021-11-23] MEDS ORDERED: IBUPROFEN 400 MG TABLET (FP) PO PRN (12:15)
[2021-11-23] MEDS ORDERED: DICYCLOMINE HCL 10 MG CAPSULE PO PRN (12:15)
[2021-11-23] MEDS ORDERED: METHOCARBAMOL 500 MG TABLET PO PRN (12:15)
[2021-11-23] MEDS ORDERED: MAGNESIUM CITRATE 300 ML BOTTLE PO PRN (12:15)
[2021-11-23] MEDS ORDERED: ACETAMINOPHEN 325 MG TABLET (FP) PO PRN ×2 (12:15)
[2021-11-23] MEDS ORDERED: MAG HYDROX/AL HYDROX/SIMETH 30 ML UNIT-DOSE CUP PO PRN (12:15)
[2021-11-23] MEDS ORDERED: ONDANSETRON *ODT* 4 MG TABLET SL PRN (12:15)
[2021-11-23] MEDS ORDERED: chlordiazePOXIDE HCL 25 MG CAPSULE PO PRN (12:34)
[2021-11-23] MEDS: hydrOXYzine PAMOATE 25 MG CAPSULE (FP) PO SCH ×3 (13:56→22:36)
[2021-11-23] MEDS: NICOTINE 14 MG/24 HOURS TOPICAL PATCH TD SCH (13:58)
[2021-11-23] MEDS: PRENATAL VITAMINS W/ FOLIC ACID TABLET (FP) PO SCH (13:58)
[2021-11-23 15:19] LABS: HEMATOCRIT 46.4 % (35.4-49); HEMOGLOBIN 16.3 GM/dL (11.7-16.9); MCH 33.5 pg (25.7-33.7); MCHC 35.1 g/dl (32.0-35.9); MEAN CELL VOLUME 95.7 fl (80-96); MEAN PLT VOLUME 8.4 fl (7.5-11.1); PLATELET COUNT 277 10^3/uL (134-434); RBC 4.85 M/mm3 (4.00-5.60); RDW 12.7 % (11.9-15.9); WHITE BLOOD COUNT 6.6 K/mm3 (4.0-10.0)
[2021-11-23 15:28] LABS: CALCIUM 9.5 mg/dL (8.5-10.1)
[2021-11-23 15:29] LABS: ALBUMIN 4.4 g/dl (3.4-5.0); BLOOD UREA NITROGEN 9.1 mg/dL (7-18)
[2021-11-23 15:30] LABS: CREATININE 0.9 mg/dL (0.55-1.3)
[2021-11-23 15:31] LABS: BILIRUBIN,TOTAL 0.5 mg/dL (0.2-1); TOT PROT 8.3 g/dl (6.4-8.2)
[2021-11-23] MEDS: chlordiazePOXIDE HCL 25 MG CAPSULE PO SCH ×2 (18:17→22:36)
[2021-11-23] MEDS: QUEtiapine FUMARATE 100 MG TABLET (FP) PO SCH (22:36)
[2021-11-23] MEDS: MELATONIN 5 MG TABLETS PO SCH (22:36)
[2021-11-23] MEDS: THIAMINE HCL 100 MG TABLET (FP) PO SCH (22:36)
[2021-11-24] MEDS: chlordiazePOXIDE HCL 25 MG CAPSULE PO SCH ×4 (07:03→22:29)
[2021-11-24] MEDS: hydrOXYzine PAMOATE 25 MG CAPSULE (FP) PO SCH ×5 (07:04→22:29)
[2021-11-24] MEDS: PRENATAL VITAMINS W/ FOLIC ACID TABLET (FP) PO SCH (10:47)
[2021-11-24] MEDS: NICOTINE 14 MG/24 HOURS TOPICAL PATCH TD SCH (10:47)
[2021-11-24] MEDS: THIAMINE HCL 100 MG TABLET (FP) PO SCH (22:29)
[2021-11-24] MEDS: QUEtiapine FUMARATE 100 MG TABLET (FP) PO SCH (22:29)
[2021-11-24] MEDS: MELATONIN 5 MG TABLETS PO SCH (22:29)
[2021-11-25] MEDS: hydrOXYzine PAMOATE 25 MG CAPSULE (FP) PO SCH ×5 (06:26→22:31)
[2021-11-25] MEDS: chlordiazePOXIDE HCL 25 MG CAPSULE PO SCH ×4 (06:26→22:31)
[2021-11-25] MEDS: PRENATAL VITAMINS W/ FOLIC ACID TABLET (FP) PO SCH (11:58)
[2021-11-25] MEDS: NICOTINE 14 MG/24 HOURS TOPICAL PATCH TD SCH (11:58)
[2021-11-25] MEDS: MELATONIN 5 MG TABLETS PO SCH (22:31)
[2021-11-25] MEDS: QUEtiapine FUMARATE 100 MG TABLET (FP) PO SCH (22:31)
[2021-11-25] MEDS: THIAMINE HCL 100 MG TABLET (FP) PO SCH (22:31)
[2021-11-26] MEDS ORDERED: chlordiazePOXIDE HCL 10 MG CAPSULE PO PRN
[2021-11-26] MEDS: chlordiazePOXIDE HCL 10 MG CAPSULE PO SCH ×4 (06:24→22:21)
[2021-11-26] MEDS: hydrOXYzine PAMOATE 25 MG CAPSULE (FP) PO SCH ×5 (06:24→22:20)
[2021-11-26] MEDS: PRENATAL VITAMINS W/ FOLIC ACID TABLET (FP) PO SCH (10:19)
[2021-11-26] MEDS: NICOTINE 14 MG/24 HOURS TOPICAL PATCH TD SCH (10:21)
[2021-11-26] MEDS: THIAMINE HCL 100 MG TABLET (FP) PO SCH (22:20)
[2021-11-26] MEDS: MELATONIN 5 MG TABLETS PO SCH (22:20)
[2021-11-26] MEDS: QUEtiapine FUMARATE 100 MG TABLET (FP) PO SCH (22:20)
[2021-11-27] MEDS: chlordiazePOXIDE HCL 10 MG CAPSULE PO SCH ×2 (06:41→18:00)
[2021-11-27] MEDS: hydrOXYzine PAMOATE 25 MG CAPSULE (FP) PO SCH ×5 (06:41→22:15)
[2021-11-27] MEDS: PRENATAL VITAMINS W/ FOLIC ACID TABLET (FP) PO SCH (10:08)
[2021-11-27] MEDS: NICOTINE 14 MG/24 HOURS TOPICAL PATCH TD SCH (10:09)
[2021-11-27] MEDS: QUEtiapine FUMARATE 100 MG TABLET (FP) PO SCH (22:15)
[2021-11-27] MEDS: THIAMINE HCL 100 MG TABLET (FP) PO SCH (22:15)
[2021-11-27] MEDS: MELATONIN 5 MG TABLETS PO SCH (22:16)
[2021-11-28] MEDS ORDERED: chlordiazePOXIDE HCL 10 MG CAPSULE PO ONE (05:00)
[2021-11-28] MEDS: hydrOXYzine PAMOATE 25 MG CAPSULE (FP) PO SCH (05:36)
[2021-11-28 09:12] VITALS: BP 148/97; PULSE 77; TEMP 96.3
== END 2021-11-28 09:54 | disposition home or self-care (01) | DRG 774 ==
LOC: YASAS 11:40 → Y3N 13:16
PROVIDERS: ADMIT Allergy & Immunology; ATTEND Surgery
PROC: HZ2ZZZZ Detoxification Services for Substance Abuse Treatment (ICD-10-PCS; principal; 2021-11-23)
DX: F10.230 Alcohol dependence with withdrawal, uncomplicated (principal); F14.20 Cocaine dependence, uncomplicated; F12.20 Cannabis dependence, uncomplicated; F17.210 Nicotine dependence, cigarettes, uncomplicated; F19.24 Other psychoactive substance dependence with psychoactive substance-induced mood disorder; F20.9 Schizophrenia, unspecified; R73.9 Hyperglycemia, unspecified; Z87.820 Personal history of traumatic brain injury; Z86.69 Personal history of other diseases of the nervous system and sense organs; Z91.14 Patient's other noncompliance with medication regimen; Z56.0 Unemployment, unspecified; Z59.00 Homelessness unspecified
CPT/HCPCS: 36415; 80053; 82962; 85027; 86780; C9803-CS; U0003; U0005

== ENCOUNTER 2022-04-17 14:09 | Inpatient (IN) | payer OTHER ==
[2022-04-17] MEDS ORDERED: ACETAMINOPHEN 325 MG TABLET (FP) PO PRN ×2 (15:57)
[2022-04-17] MEDS ORDERED: MAG HYDROX/AL HYDROX/SIMETH 30 ML UNIT-DOSE CUP PO PRN (15:57)
[2022-04-17] MEDS ORDERED: MAGNESIUM HYDROX 2400MG/30ML ORAL SUSPENSION 30 ML CUP PO PRN (15:57)
[2022-04-17] MEDS ORDERED: hydrOXYzine PAMOATE 25 MG CAPSULE (FP) PO PRN (15:57)
[2022-04-17] MEDS ORDERED: IBUPROFEN 400 MG TABLET (FP) PO PRN (15:57)
[2022-04-17] MEDS ORDERED: LOPERAMIDE HCL 2 MG CAPSULE PO PRN (15:57)
[2022-04-17] MEDS ORDERED: DICYCLOMINE HCL 10 MG CAPSULE PO PRN (15:57)
[2022-04-17] MEDS ORDERED: ONDANSETRON *ODT* 4 MG TABLET SL PRN (15:57)
[2022-04-17] MEDS ORDERED: MAGNESIUM CITRATE 300 ML BOTTLE PO PRN (15:57)
[2022-04-17] MEDS ORDERED: NALOXONE HCL (KLOXXADO) 8 MG SPRAY NS PRN (15:57)
[2022-04-17] MEDS ORDERED: IBUPROFEN 600 MG TABLET (FP) PO PRN (15:57)
[2022-04-17] MEDS ORDERED: BENZOCAINE/MENTHOL (CHLORASEPTIC ) LOZENGE MM PRN (15:57)
[2022-04-17] MEDS ORDERED: BISMUTH SUBSALICYLATE 524 MG/30 ML PO PRN (15:57)
[2022-04-17] MEDS ORDERED: NICOTINE 10 MG CARTRIDGE (INHALER) IH PRN (15:57)
[2022-04-17] MEDS ORDERED: METHOCARBAMOL 500 MG TABLET PO PRN (15:57)
[2022-04-17 17:07] VITALS: BMI 22.0
[2022-04-17] MEDS ORDERED: chlordiazePOXIDE HCL 25 MG CAPSULE PO PRN ×2 (17:25→17:35)
[2022-04-17] MEDS: chlordiazePOXIDE HCL 25 MG CAPSULE PO SCH ×2 (17:41→22:15)
[2022-04-17] MEDS: THIAMINE HCL 100 MG TABLET (FP) PO SCH (22:15)
[2022-04-17] MEDS: MELATONIN 5 MG TABLETS PO SCH (22:15)
[2022-04-17] MEDS ORDERED: chlordiazePOXIDE HCL 25 MG CAPSULE PO SCH (23:00)
[2022-04-18] MEDS: chlordiazePOXIDE HCL 25 MG CAPSULE PO SCH ×4 (05:28→22:35)
[2022-04-18] MEDS: PRENATAL VITAMINS W/ FOLIC ACID TABLET (FP) PO SCH (10:30)
[2022-04-18 11:21] LABS: HEMOGLOBIN 16.5 GM/dL (11.7-16.9); MCH 32.5 pg (25.7-33.7); MCHC 34.4 g/dl (32.0-35.9); MEAN CELL VOLUME 94.6 fl (80-96); MEAN PLT VOLUME 9.4 fl (7.5-11.1); PLATELET COUNT 134 10^3/uL (134-434); RBC 5.07 M/mm3 (4.00-5.60); RDW 15.2 % (11.9-15.9); WHITE BLOOD COUNT 4.1 K/mm3 (4.0-10.0)
[2022-04-18 12:43] LABS: CALCIUM 8.9 mg/dL (8.5-10.1)
[2022-04-18 12:45] LABS: ALBUMIN 3.8 g/dl (3.4-5.0)
[2022-04-18 12:47] LABS: CREATININE 0.6 mg/dL (0.55-1.3)
[2022-04-18 12:49] LABS: BILIRUBIN,TOTAL 1.2 mg/dL (0.2-1); TOT PROT 7.3 g/dl (6.4-8.2)
[2022-04-18] MEDS: QUEtiapine FUMARATE 100 MG TABLET (FP) PO SCH (22:35)
[2022-04-18] MEDS: THIAMINE HCL 100 MG TABLET (FP) PO SCH (22:35)
[2022-04-18] MEDS: MELATONIN 5 MG TABLETS PO SCH (22:39)
[2022-04-19] MEDS ORDERED: chlordiazePOXIDE HCL 25 MG CAPSULE PO SCH (05:00)
[2022-04-19] MEDS: chlordiazePOXIDE HCL 25 MG CAPSULE PO SCH ×4 (05:35→22:43)
[2022-04-19] MEDS: PRENATAL VITAMINS W/ FOLIC ACID TABLET (FP) PO SCH (10:20)
[2022-04-19] MEDS: POTASSIUM CHLORIDE ORAL LIQUID 20 MEQ/15 ML PO SCH ×2 (10:20→22:43)
[2022-04-19] MEDS ORDERED: cloNIDine HCL 0.1 MG TABLET PO ONE (13:15)
[2022-04-19 21:13] VITALS: BP 135/87; PULSE 72; RESP 17; TEMP 97.6
[2022-04-19] MEDS: MELATONIN 5 MG TABLETS PO SCH (22:43)
[2022-04-19] MEDS: QUEtiapine FUMARATE 100 MG TABLET (FP) PO SCH (22:43)
[2022-04-19] MEDS: THIAMINE HCL 100 MG TABLET (FP) PO SCH (22:43)
[2022-04-20] MEDS ORDERED: chlordiazePOXIDE HCL 10 MG CAPSULE PO PRN ×2
[2022-04-20] MEDS ORDERED: chlordiazePOXIDE HCL 10 MG CAPSULE PO SCH ×2 (05:00)
[2022-04-21] MEDS ORDERED: chlordiazePOXIDE HCL 10 MG CAPSULE PO SCH ×2 (05:00)
[2022-04-22] MEDS ORDERED: chlordiazePOXIDE HCL 10 MG CAPSULE PO ONE ×2 (05:00)
== END 2022-04-20 00:02 | disposition left against medical advice (07) | DRG 770 ==
LOC: YASAS 14:09 → Y3N 16:43 → Y6N 04-18 21:30
PROVIDERS: ADMIT Allergy & Immunology; ATTEND Surgery
PROC: HZ2ZZZZ Detoxification Services for Substance Abuse Treatment (ICD-10-PCS; principal; 2022-04-17)
DX: F10.230 Alcohol dependence with withdrawal, uncomplicated (principal); F16.20 Hallucinogen dependence, uncomplicated; F12.20 Cannabis dependence, uncomplicated; F17.210 Nicotine dependence, cigarettes, uncomplicated; F19.24 Other psychoactive substance dependence with psychoactive substance-induced mood disorder; F31.81 Bipolar II disorder; F43.10 Post-traumatic stress disorder, unspecified; F39 Unspecified mood [affective] disorder; F41.9 Anxiety disorder, unspecified; G40.909 Epilepsy, unspecified, not intractable, without status epilepticus; Z87.820 Personal history of traumatic brain injury; Z56.0 Unemployment, unspecified; Z59.00 Homelessness unspecified
CPT/HCPCS: 36415; 80053; 85027; 86780; C9803-CS; U0003; U0005

== ENCOUNTER 2022-08-08 12:59 | Inpatient (IN) | payer OTHER ==
[2022-08-08 13:47] VITALS: BMI 18.8
[2022-08-08] MEDS ORDERED: NALOXONE HCL (KLOXXADO) 8 MG SPRAY NS PRN (14:41)
[2022-08-08] MEDS ORDERED: BENZOCAINE/MENTHOL (CHLORASEPTIC ) LOZENGE MM PRN (14:41)
[2022-08-08] MEDS ORDERED: IBUPROFEN 400 MG TABLET (FP) PO PRN (14:41)
[2022-08-08] MEDS ORDERED: POLYETHYLENE GLYCOL (HEALTHYLAX) 3350 17 GM PACKET PO PRN (14:41)
[2022-08-08] MEDS ORDERED: MAGNESIUM HYDROX 2400MG/30ML ORAL SUSPENSION 30 ML CUP PO PRN (14:41)
[2022-08-08] MEDS ORDERED: ACETAMINOPHEN 325 MG TABLET (FP) PO PRN ×2 (14:41)
[2022-08-08] MEDS ORDERED: DICYCLOMINE HCL 10 MG CAPSULE PO PRN (14:41)
[2022-08-08] MEDS ORDERED: MAG HYDROX/AL HYDROX/SIMETH 30 ML UNIT-DOSE CUP PO PRN (14:41)
[2022-08-08] MEDS ORDERED: ONDANSETRON *ODT* 4 MG TABLET SL PRN (14:41)
[2022-08-08] MEDS ORDERED: IBUPROFEN 600 MG TABLET (FP) PO PRN (14:41)
[2022-08-08] MEDS ORDERED: LOPERAMIDE HCL 2 MG CAPSULE PO PRN (14:41)
[2022-08-08] MEDS ORDERED: BISMUTH SUBSALICYLATE 262 MG/15 ML BTL PO PRN (14:41)
[2022-08-08] MEDS: NICOTINE 14 MG/24 HOURS TOPICAL PATCH TD SCH (18:41)
[2022-08-08] MEDS: PRENATAL VITAMINS W/ FOLIC ACID TABLET (FP) PO SCH (18:41)
[2022-08-08] MEDS: MELATONIN 5 MG TABLETS PO SCH (22:30)
[2022-08-08] MEDS: THIAMINE HCL 100 MG TABLET (FP) PO SCH (22:30)
[2022-08-08] MEDS: METHOCARBAMOL 500 MG TABLET PO PRN (22:31)
[2022-08-08] MEDS: hydrOXYzine PAMOATE 25 MG CAPSULE (FP) PO PRN (23:01)
[2022-08-09] MEDS ORDERED: diazePAM 5 MG TABLET PO PRN (09:30)
[2022-08-09] MEDS: NICOTINE 14 MG/24 HOURS TOPICAL PATCH TD SCH (10:38)
[2022-08-09] MEDS: diazePAM 5 MG TABLET PO SCH ×2 (10:38→17:10)
[2022-08-09] MEDS: PRENATAL VITAMINS W/ FOLIC ACID TABLET (FP) PO SCH (10:38)
[2022-08-09] MEDS: METHOCARBAMOL 500 MG TABLET PO PRN (10:45)
[2022-08-09] MEDS: NICOTINE 10 MG CARTRIDGE (INHALER) IH PRN (10:46)
[2022-08-09 11:09] LABS: HEMATOCRIT 45.6 % (35.4-49); HEMOGLOBIN 15.8 GM/dL (11.7-16.9); MCH 33.6 pg (25.7-33.7); MCHC 34.6 g/dl (32.0-35.9); MEAN PLT VOLUME 9.4 fl (7.5-11.1); PLATELET COUNT 140 10^3/uL (134-434); RDW 11.9 % (11.9-15.9); WHITE BLOOD COUNT 3.3 K/mm3 (4.0-10.0)
[2022-08-09 11:26] LABS: CALCIUM 8.8 mg/dL (8.5-10.1)
[2022-08-09 11:27] LABS: ALBUMIN 3.5 g/dl (3.4-5.0); BLOOD UREA NITROGEN 6.4 mg/dL (7-18)
[2022-08-09 11:30] LABS: CREATININE 0.7 mg/dL (0.55-1.3)
[2022-08-09 11:31] LABS: BILIRUBIN,TOTAL 1.1 mg/dL (0.2-1); TOT PROT 7.1 g/dl (6.4-8.2)
[2022-08-09] MEDS: hydrOXYzine PAMOATE 25 MG CAPSULE (FP) PO PRN (17:10)
[2022-08-09] MEDS ORDERED: LORazepam 1 MG TABLET PO PRN (18:00)
[2022-08-09] MEDS: LORazepam 2 MG TABLET PO SCH (22:33)
[2022-08-09] MEDS: THIAMINE HCL 100 MG TABLET (FP) PO SCH (22:33)
[2022-08-09] MEDS: MELATONIN 5 MG TABLETS PO SCH (22:33)
[2022-08-09] MEDS: LACTULOSE 20 GM/30 ML UDC (FOR ORAL USE ONLY) PO SCH (22:34)
[2022-08-10] MEDS: LORazepam 2 MG TABLET PO SCH ×4 (05:49→22:15)
[2022-08-10] MEDS: LACTULOSE 20 GM/30 ML UDC (FOR ORAL USE ONLY) PO SCH ×3 (05:49→22:16)
[2022-08-10] MEDS: METHOCARBAMOL 500 MG TABLET PO PRN ×2 (10:01→17:21)
[2022-08-10] MEDS: PRENATAL VITAMINS W/ FOLIC ACID TABLET (FP) PO SCH (10:01)
[2022-08-10] MEDS: NICOTINE 14 MG/24 HOURS TOPICAL PATCH TD SCH (10:04)
[2022-08-10] MEDS: NICOTINE 10 MG CARTRIDGE (INHALER) IH PRN (11:55)
[2022-08-10] MEDS: hydrOXYzine PAMOATE 25 MG CAPSULE (FP) PO PRN (17:22)
[2022-08-10] MEDS: THIAMINE HCL 100 MG TABLET (FP) PO SCH (21:53)
[2022-08-10] MEDS: MELATONIN 5 MG TABLETS PO SCH (21:55)
[2022-08-11] MEDS: LACTULOSE 20 GM/30 ML UDC (FOR ORAL USE ONLY) PO SCH ×3 (05:43→22:39)
[2022-08-11] MEDS: LORazepam 1 MG TABLET PO SCH ×4 (05:43→22:38)
[2022-08-11] MEDS ORDERED: diazePAM 5 MG TABLET PO SCH (06:00)
[2022-08-11] MEDS: PRENATAL VITAMINS W/ FOLIC ACID TABLET (FP) PO SCH (10:27)
[2022-08-11] MEDS: NICOTINE 14 MG/24 HOURS TOPICAL PATCH TD SCH (10:28)
[2022-08-11] MEDS: METHOCARBAMOL 500 MG TABLET PO PRN ×2 (10:28→22:38)
[2022-08-11] MEDS: NICOTINE 10 MG CARTRIDGE (INHALER) IH PRN (10:29)
[2022-08-11] MEDS: hydrOXYzine PAMOATE 25 MG CAPSULE (FP) PO PRN (17:27)
[2022-08-11] MEDS: THIAMINE HCL 100 MG TABLET (FP) PO SCH (22:38)
[2022-08-11] MEDS: MELATONIN 5 MG TABLETS PO SCH (22:38)
[2022-08-12] MEDS ORDERED: LORazepam 0.5 MG TABLET PO PRN
[2022-08-12] MEDS: LORazepam 0.5 MG TABLET PO SCH ×4 (05:38→22:00)
[2022-08-12] MEDS: LACTULOSE 20 GM/30 ML UDC (FOR ORAL USE ONLY) PO SCH ×3 (05:38→21:59)
[2022-08-12] MEDS ORDERED: diazePAM 5 MG TABLET PO SCH (06:00)
[2022-08-12] MEDS: METHOCARBAMOL 500 MG TABLET PO PRN ×2 (10:39→21:58)
[2022-08-12] MEDS: PRENATAL VITAMINS W/ FOLIC ACID TABLET (FP) PO SCH (10:40)
[2022-08-12] MEDS: NICOTINE 14 MG/24 HOURS TOPICAL PATCH TD SCH (10:40)
[2022-08-12] MEDS: NICOTINE 10 MG CARTRIDGE (INHALER) IH PRN (10:40)
[2022-08-12] MEDS: hydrOXYzine PAMOATE 25 MG CAPSULE (FP) PO PRN (17:28)
[2022-08-12] MEDS: MELATONIN 5 MG TABLETS PO SCH (21:58)
[2022-08-12] MEDS: THIAMINE HCL 100 MG TABLET (FP) PO SCH (21:58)
[2022-08-13] MEDS ORDERED: LORazepam 0.5 MG TABLET PO ONE (05:00)
[2022-08-13] MEDS: LACTULOSE 20 GM/30 ML UDC (FOR ORAL USE ONLY) PO SCH ×3 (06:00→22:42)
[2022-08-13] MEDS ORDERED: diazePAM 5 MG TABLET PO ONE (06:00)
[2022-08-13] MEDS: NICOTINE 14 MG/24 HOURS TOPICAL PATCH TD SCH (09:46)
[2022-08-13] MEDS: NICOTINE 10 MG CARTRIDGE (INHALER) IH PRN ×2 (09:46→22:43)
[2022-08-13] MEDS: PRENATAL VITAMINS W/ FOLIC ACID TABLET (FP) PO SCH (09:46)
[2022-08-13] MEDS: MELATONIN 5 MG TABLETS PO SCH (22:41)
[2022-08-13] MEDS: hydrOXYzine PAMOATE 25 MG CAPSULE (FP) PO PRN (22:42)
[2022-08-13] MEDS: THIAMINE HCL 100 MG TABLET (FP) PO SCH (22:42)
[2022-08-14] MEDS: LACTULOSE 20 GM/30 ML UDC (FOR ORAL USE ONLY) PO SCH ×3 (05:48→21:48)
[2022-08-14] MEDS: PRENATAL VITAMINS W/ FOLIC ACID TABLET (FP) PO SCH (10:33)
[2022-08-14] MEDS: METHOCARBAMOL 500 MG TABLET PO PRN (10:33)
[2022-08-14] MEDS: hydrOXYzine PAMOATE 25 MG CAPSULE (FP) PO PRN ×2 (10:33→21:48)
[2022-08-14] MEDS: NICOTINE 14 MG/24 HOURS TOPICAL PATCH TD SCH (10:36)
[2022-08-14] MEDS: THIAMINE HCL 100 MG TABLET (FP) PO SCH (21:48)
[2022-08-14] MEDS: MELATONIN 5 MG TABLETS PO SCH (21:48)
[2022-08-15] MEDS: LACTULOSE 20 GM/30 ML UDC (FOR ORAL USE ONLY) PO SCH ×3 (06:16→23:10)
[2022-08-15] MEDS: PRENATAL VITAMINS W/ FOLIC ACID TABLET (FP) PO SCH (10:22)
[2022-08-15] MEDS: NICOTINE 14 MG/24 HOURS TOPICAL PATCH TD SCH (10:22)
[2022-08-15] MEDS: NICOTINE 10 MG CARTRIDGE (INHALER) IH PRN (10:23)
[2022-08-15] MEDS: THIAMINE HCL 100 MG TABLET (FP) PO SCH (23:10)
[2022-08-15] MEDS: MELATONIN 5 MG TABLETS PO SCH (23:10)
[2022-08-15] MEDS: hydrOXYzine PAMOATE 25 MG CAPSULE (FP) PO PRN (23:10)
[2022-08-16] MEDS: LACTULOSE 20 GM/30 ML UDC (FOR ORAL USE ONLY) PO SCH ×3 (06:27→22:42)
[2022-08-16] MEDS: NICOTINE 10 MG CARTRIDGE (INHALER) IH PRN (09:55)
[2022-08-16] MEDS: PRENATAL VITAMINS W/ FOLIC ACID TABLET (FP) PO SCH (09:55)
[2022-08-16] MEDS: NICOTINE 14 MG/24 HOURS TOPICAL PATCH TD SCH (09:55)
[2022-08-16] MEDS: MELATONIN 5 MG TABLETS PO SCH (22:42)
[2022-08-16] MEDS: hydrOXYzine PAMOATE 25 MG CAPSULE (FP) PO PRN (22:42)
[2022-08-16] MEDS: THIAMINE HCL 100 MG TABLET (FP) PO SCH (22:42)
[2022-08-17] MEDS: LACTULOSE 20 GM/30 ML UDC (FOR ORAL USE ONLY) PO SCH ×3 (06:46→23:27)
[2022-08-17] MEDS: NICOTINE 14 MG/24 HOURS TOPICAL PATCH TD SCH (10:43)
[2022-08-17] MEDS: PRENATAL VITAMINS W/ FOLIC ACID TABLET (FP) PO SCH (10:43)
[2022-08-17] MEDS: NICOTINE 10 MG CARTRIDGE (INHALER) IH PRN (11:04)
[2022-08-17] MEDS: MELATONIN 5 MG TABLETS PO SCH (23:27)
[2022-08-17] MEDS: THIAMINE HCL 100 MG TABLET (FP) PO SCH (23:27)
[2022-08-18] MEDS: LACTULOSE 20 GM/30 ML UDC (FOR ORAL USE ONLY) PO SCH (05:58)
[2022-08-18] MEDS: NICOTINE 14 MG/24 HOURS TOPICAL PATCH TD SCH (09:12)
[2022-08-18] MEDS: NICOTINE 10 MG CARTRIDGE (INHALER) IH PRN (09:12)
[2022-08-18] MEDS: PRENATAL VITAMINS W/ FOLIC ACID TABLET (FP) PO SCH (09:12)
[2022-08-18 09:40] VITALS: BP 149/67; PULSE 72; RESP 18; TEMP 98
== END 2022-08-18 10:11 | disposition home or self-care (01) | DRG 774 ==
LOC: YASAS 12:59 → Y6N 14:58
PROVIDERS: ADMIT Allergy & Immunology; ATTEND Surgery
PROC: HZ2ZZZZ Detoxification Services for Substance Abuse Treatment (ICD-10-PCS; principal; 2022-08-08)
DX: F10.230 Alcohol dependence with withdrawal, uncomplicated (principal); F14.20 Cocaine dependence, uncomplicated; F16.20 Hallucinogen dependence, uncomplicated; F12.20 Cannabis dependence, uncomplicated; F17.213 Nicotine dependence, cigarettes, with withdrawal; F31.81 Bipolar II disorder; F20.9 Schizophrenia, unspecified; F19.24 Other psychoactive substance dependence with psychoactive substance-induced mood disorder; U07.1 COVID-19; E72.20 Disorder of urea cycle metabolism, unspecified; G40.909 Epilepsy, unspecified, not intractable, without status epilepticus; R73.9 Hyperglycemia, unspecified; R74.01 Elevation of levels of liver transaminase levels; R63.4 Abnormal weight loss; Z68.1 Body mass index [BMI] 19.9 or less, adult; Z87.820 Personal history of traumatic brain injury
CPT/HCPCS: 36415; 80053; 82140; 85027; 86780; 87811; C9803-CS; U0003; U0005

== ENCOUNTER 2023-06-10 11:45 | Inpatient (IN) | payer OTHER ==
[2023-06-10 12:29] VITALS: BMI 18.8
[2023-06-10] MEDS ORDERED: IBUPROFEN 600 MG TABLET (FP) PO PRN (13:35)
[2023-06-10] MEDS ORDERED: NICOTINE POLACRILEX 2 MG GUM BUC PRN (13:35)
[2023-06-10] MEDS ORDERED: ONDANSETRON *ODT* 4 MG TABLET SL PRN (13:35)
[2023-06-10] MEDS ORDERED: guaiFENesin 600 MG TABLET.ER (FP) PO PRN (13:35)
[2023-06-10] MEDS ORDERED: POLYETHYLENE GLYCOL (HEALTHYLAX) 3350 17 GM PACKET PO PRN (13:35)
[2023-06-10] MEDS ORDERED: NALOXONE HCL 0.4 MG/ML VIAL IM PRN (13:35)
[2023-06-10] MEDS ORDERED: BISMUTH SUBSALICYLATE 262 MG/15 ML BTL PO PRN (13:35)
[2023-06-10] MEDS ORDERED: BENZONATATE 200 MG CAPSULE PO PRN (13:35)
[2023-06-10] MEDS ORDERED: NALOXONE HCL (KLOXXADO) 8 MG SPRAY NS PRN (13:35)
[2023-06-10] MEDS ORDERED: IBUPROFEN 400 MG TABLET (FP) PO PRN (13:35)
[2023-06-10] MEDS ORDERED: MAG HYDROX/AL HYDROX/SIMETH 30 ML UNIT-DOSE CUP PO PRN (13:35)
[2023-06-10] MEDS ORDERED: MAGNESIUM HYDROX 2400MG/30ML ORAL SUSPENSION 30 ML CUP PO PRN (13:35)
[2023-06-10] MEDS ORDERED: ACETAMINOPHEN 325 MG TABLET (FP) PO PRN (13:35)
[2023-06-10] MEDS ORDERED: LOPERAMIDE HCL 2 MG CAPSULE PO PRN (13:35)
[2023-06-10] MEDS ORDERED: DICYCLOMINE HCL 10 MG CAPSULE PO PRN (13:35)
[2023-06-10] MEDS: BENZOCAINE/MENTHOL (CHLORASEPTIC ) LOZENGE MM PRN (15:57)
[2023-06-10] MEDS ORDERED: chlordiazePOXIDE HCL 25 MG CAPSULE PO PRN (16:19)
[2023-06-10] MEDS: chlordiazePOXIDE HCL 25 MG CAPSULE PO SCH ×2 (17:06→22:14)
[2023-06-10] MEDS: THIAMINE HCL 100 MG TABLET (FP) PO SCH (22:14)
[2023-06-10] MEDS: MELATONIN 5 MG TABLETS PO SCH (22:14)
[2023-06-11] MEDS: chlordiazePOXIDE HCL 25 MG CAPSULE PO SCH ×4 (06:23→22:54)
[2023-06-11] MEDS: NICOTINE 14 MG/24 HOURS TOPICAL PATCH TD SCH (10:17)
[2023-06-11] MEDS: PRENATAL VITAMINS W/ FOLIC ACID TABLET (FP) PO SCH (10:17)
[2023-06-11] MEDS ORDERED: PNEUMOC 20-VAL CONJ-DIP CRM/PF 0.5 ML SYRINGE IM ONE (12:00)
[2023-06-11] MEDS ORDERED: FLU VACCINE (FLULAVAL) PF 60 MCG/0.5 ML SYRINGE 2023-2024 IM ONE (12:00)
[2023-06-11 12:42] LABS: HEMATOCRIT 40.3 % (35.4-49); HEMOGLOBIN 13.9 GM/dL (11.7-16.9); MCH 34.2 pg (25.7-33.7); MCHC 34.6 g/dl (32.0-35.9); MEAN CELL VOLUME 98.8 fl (80-96); MEAN PLT VOLUME 9.1 fl (7.5-11.1); PLATELET COUNT 518 10^3/uL (134-434); RBC 4.08 M/mm3 (4.00-5.60); RDW 12.8 % (11.9-15.9); WHITE BLOOD COUNT 9.3 K/mm3 (4.0-10.0)
[2023-06-11] MEDS: BENZOCAINE/MENTHOL (CHLORASEPTIC ) LOZENGE MM PRN (17:21)
[2023-06-11] MEDS: MELATONIN 5 MG TABLETS PO SCH (22:54)
[2023-06-11] MEDS: QUEtiapine FUMARATE 100 MG TABLET (FP) PO SCH (22:54)
[2023-06-11] MEDS: THIAMINE HCL 100 MG TABLET (FP) PO SCH (22:54)
[2023-06-11] MEDS: VITAMINS A AND D TOPICAL OINTMENT 60 GM TUBE TP SCH (23:08)
[2023-06-12 00:50] LABS: ALBUMIN 3.3 g/dl (3.4-5.0); BILIRUBIN,TOTAL 0.8 mg/dL (0.2-1); BLOOD UREA NITROGEN 8.1 mg/dL (7-18); CALCIUM 9.2 mg/dL (8.5-10.1); CREATININE 0.6 mg/dL (0.55-1.3); POTASSIUM 3.6 mmol/L (3.5-5.1); TOT PROT 7.6 g/dl (6.4-8.2)
[2023-06-12] MEDS ORDERED: chlordiazePOXIDE HCL 25 MG CAPSULE PO SCH (05:00)
[2023-06-12] MEDS: VITAMINS A AND D TOPICAL OINTMENT 60 GM TUBE TP SCH ×3 (05:42→17:20)
[2023-06-12] MEDS: PRENATAL VITAMINS W/ FOLIC ACID TABLET (FP) PO SCH (10:31)
[2023-06-12] MEDS: NICOTINE 14 MG/24 HOURS TOPICAL PATCH TD SCH (10:34)
[2023-06-12] MEDS: BENZOCAINE/MENTHOL (CHLORASEPTIC ) LOZENGE MM PRN (10:35)
[2023-06-12] MEDS ORDERED: LORazepam 1 MG TABLET PO SCH ×2 (11:00)
[2023-06-12] MEDS: hydrOXYzine PAMOATE 25 MG CAPSULE (FP) PO PRN (16:05)
[2023-06-12] MEDS: LORazepam 1 MG TABLET PO SCH ×2 (17:20→22:15)
[2023-06-12] MEDS: METHOCARBAMOL 500 MG TABLET PO PRN (22:15)
[2023-06-12] MEDS: QUEtiapine FUMARATE 100 MG TABLET (FP) PO SCH (22:15)
[2023-06-12] MEDS: THIAMINE HCL 100 MG TABLET (FP) PO SCH (22:15)
[2023-06-12] MEDS: MELATONIN 5 MG TABLETS PO SCH (22:15)
[2023-06-13] MEDS ORDERED: chlordiazePOXIDE HCL 10 MG CAPSULE PO PRN
[2023-06-13] MEDS: VITAMINS A AND D TOPICAL OINTMENT 60 GM TUBE TP SCH ×4 (01:06→17:45)
[2023-06-13] MEDS: BENZOCAINE/MENTHOL (CHLORASEPTIC ) LOZENGE MM PRN (02:13)
[2023-06-13] MEDS ORDERED: chlordiazePOXIDE HCL 10 MG CAPSULE PO SCH (05:00)
[2023-06-13] MEDS: LORazepam 0.5 MG TABLET PO SCH ×4 (05:55→22:40)
[2023-06-13] MEDS: PRENATAL VITAMINS W/ FOLIC ACID TABLET (FP) PO SCH (10:17)
[2023-06-13] MEDS: NICOTINE 14 MG/24 HOURS TOPICAL PATCH TD SCH (10:18)
[2023-06-13] MEDS: BACITRACIN 0.9 GM PACKET TP SCH (11:40)
[2023-06-13] MEDS: TOLNAFTATE 1% POWDER 45 GM POW TP SCH ×2 (12:21→22:40)
[2023-06-13] MEDS: hydrOXYzine PAMOATE 25 MG CAPSULE (FP) PO PRN (13:20)
[2023-06-13] MEDS: METHOCARBAMOL 500 MG TABLET PO PRN ×2 (13:20→22:39)
[2023-06-13] MEDS: MELATONIN 5 MG TABLETS PO SCH (22:38)
[2023-06-13] MEDS: THIAMINE HCL 100 MG TABLET (FP) PO SCH (22:38)
[2023-06-13] MEDS: QUEtiapine FUMARATE 100 MG TABLET (FP) PO SCH (22:38)
[2023-06-14] MEDS: VITAMINS A AND D TOPICAL OINTMENT 60 GM TUBE TP SCH ×2 (01:04→05:22)
[2023-06-14] MEDS ORDERED: LORazepam 0.5 MG TABLET PO ONE (05:00)
[2023-06-14] MEDS ORDERED: chlordiazePOXIDE HCL 10 MG CAPSULE PO SCH (05:00)
[2023-06-14 09:14] VITALS: BP 114/80; PULSE 80; RESP 18; TEMP 97.5
[2023-06-14] MEDS: NICOTINE 14 MG/24 HOURS TOPICAL PATCH TD SCH (09:33)
[2023-06-14] MEDS: BACITRACIN 0.9 GM PACKET TP SCH (09:33)
[2023-06-14] MEDS: TOLNAFTATE 1% POWDER 45 GM POW TP SCH (09:33)
[2023-06-14] MEDS: PRENATAL VITAMINS W/ FOLIC ACID TABLET (FP) PO SCH (09:34)
[2023-06-14 10:12] LABS: ALBUMIN 3.3 g/dl (3.4-5.0)
[2023-06-14 10:15] LABS: BILIRUBIN,DIRECT 0.3 mg/dL (0.0-0.2)
[2023-06-14 10:17] LABS: BILIRUBIN,TOTAL 0.7 mg/dL (0.2-1); TOT PROT 7.9 g/dl (6.4-8.2)
[2023-06-15] MEDS ORDERED: chlordiazePOXIDE HCL 10 MG CAPSULE PO ONE (05:00)
== END 2023-06-14 09:15 | disposition home or self-care (01) | DRG 775 ==
LOC: YASAS 11:45 → Y3N 13:52
PROVIDERS: ADMIT Allergy & Immunology; ATTEND Surgery
PROC: HZ2ZZZZ Detoxification Services for Substance Abuse Treatment (ICD-10-PCS; principal; 2023-06-10)
DX: F10.230 Alcohol dependence with withdrawal, uncomplicated (principal); F16.20 Hallucinogen dependence, uncomplicated; F12.20 Cannabis dependence, uncomplicated; F17.210 Nicotine dependence, cigarettes, uncomplicated; F19.24 Other psychoactive substance dependence with psychoactive substance-induced mood disorder; F31.9 Bipolar disorder, unspecified; G40.909 Epilepsy, unspecified, not intractable, without status epilepticus; R74.8 Abnormal levels of other serum enzymes; Z87.820 Personal history of traumatic brain injury; Z59.01 Sheltered homelessness; Z56.0 Unemployment, unspecified
CPT/HCPCS: 36415; 80053; 80076; 80307; 85027; 86780; 87635

== ENCOUNTER 2023-09-14 17:16 | Emergency (ER) | payer OTHER ==
[2023-09-14 17:25] VITALS: BP 135/87; PULSE 88; RESP 18; TEMP 97; BMI 21.9
== END 2023-09-14 17:38 | disposition home or self-care (01) ==
LOC: JER 17:16 → JERFT 17:16
DX: Z48.02 Encounter for removal of sutures (principal)
CPT/HCPCS: 99281-25

== ENCOUNTER 2023-09-14 20:58 | Emergency (ER) | payer OTHER ==
[2023-09-14 21:07] VITALS: BP 123/74; PULSE 80; RESP 14; TEMP 98.3; BMI 20.3
== END 2023-09-14 22:32 | disposition home or self-care (01) ==
LOC: JER 20:58
DX: F10.129 Alcohol abuse with intoxication, unspecified (principal)
CPT/HCPCS: 99283-25

== ENCOUNTER 2024-03-22 11:59 | Inpatient (IN) | payer OTHER ==
[2024-03-22] MEDS ORDERED: MAGNESIUM HYDROX 2400MG/30ML ORAL SUSPENSION 30 ML CUP PO PRN (12:58)
[2024-03-22] MEDS ORDERED: BENZOCAINE/MENTHOL (CHLORASEPTIC ) LOZENGE MM PRN (12:58)
[2024-03-22] MEDS ORDERED: IBUPROFEN 400 MG TABLET (FP) PO PRN (12:58)
[2024-03-22] MEDS ORDERED: POLYETHYLENE GLYCOL (HEALTHYLAX) 3350 17 GM PACKET PO PRN (12:58)
[2024-03-22] MEDS ORDERED: NICOTINE POLACRILEX 2 MG LOZENGE BC PRN (12:58)
[2024-03-22] MEDS ORDERED: BENZONATATE 200 MG CAPSULE PO PRN (12:58)
[2024-03-22] MEDS ORDERED: DICYCLOMINE HCL 10 MG CAPSULE PO PRN (12:58)
[2024-03-22] MEDS ORDERED: IBUPROFEN 600 MG TABLET (FP) PO PRN (12:58)
[2024-03-22] MEDS ORDERED: NICOTINE POLACRILEX 2 MG GUM BUC PRN (12:58)
[2024-03-22] MEDS ORDERED: guaiFENesin 600 MG TABLET.ER (FP) PO PRN (12:58)
[2024-03-22] MEDS ORDERED: MAG HYDROX/AL HYDROX/SIMETH 30 ML UNIT-DOSE CUP PO PRN (12:58)
[2024-03-22] MEDS ORDERED: LOPERAMIDE HCL 2 MG CAPSULE PO PRN (12:58)
[2024-03-22] MEDS ORDERED: NALOXONE (NARCAN) HCL 4 MG/0.1 ML SPRAY NS PRN (12:58)
[2024-03-22] MEDS ORDERED: ONDANSETRON *ODT* 4 MG TABLET SL PRN (12:58)
[2024-03-22] MEDS ORDERED: ACETAMINOPHEN 325 MG TABLET (FP) PO PRN (12:58)
[2024-03-22] MEDS ORDERED: NALOXONE (NYS OPIOID OVERDOSE PROGRAM) 4 MG/0.1 ML SPRAY NS PRN (12:58)
[2024-03-22] MEDS: chlordiazePOXIDE HCL 25 MG CAPSULE PO SCH (17:21)
[2024-03-22] MEDS: MELATONIN 5 MG TABLETS PO SCH (22:35)
[2024-03-22] MEDS: METHOCARBAMOL 500 MG TABLET PO PRN (22:35)
[2024-03-22] MEDS: THIAMINE 100 MG TABLET PO SCH (22:35)
[2024-03-23] MEDS: PRENATAL VITAMINS W/ FOLIC ACID TABLET (FP) PO SCH (10:08)
[2024-03-23] MEDS: AMMONIUM LACTATE 12% LOTION 225 GM BOTTLE TP SCH (11:07)
[2024-03-23] MEDS: FLU VACCINE (FLULAVAL) PF 45 MCG/0.5 ML SYRINGE 2024-2025 IM ONE (11:08)
[2024-03-23 12:41] LABS: HEMATOCRIT 45.9 % (35.4-49); HEMOGLOBIN 15.6 GM/dL (11.7-16.9); MCH 34.4 pg (25.7-33.7); MCHC 34.1 g/dl (32.0-35.9); MEAN CELL VOLUME 100.9 fl (80-96); MEAN PLT VOLUME 9.6 fl (7.5-11.1); PLATELET COUNT 211 10^3/uL (134-434); RBC 4.55 M/mm3 (4.00-5.60); RDW 12.6 % (11.9-15.9); WHITE BLOOD COUNT 6.2 K/mm3 (4.0-10.0)
[2024-03-23 13:48] LABS: CHLORIDE 103 mmol/L (98-107); POTASSIUM 4.1 mmol/L (3.5-5.1); SODIUM 138 mmol/L (136-145)
[2024-03-23 13:51] LABS: ALBUMIN 3.8 g/dl (3.4-5.0); ANION GAP 8 mmol/L (4-13); BLOOD UREA NITROGEN 10.6 mg/dL (7-18); CALCIUM 9.3 mg/dL (8.5-10.1); CO2 26 mmol/L (21-32); GLUCOSE,RANDOM 102 mg/dL (74-106)
[2024-03-23 13:53] LABS: CREATININE 0.6 mg/dL (0.55-1.3); SGOT/AST 181 U/L (15-37)
[2024-03-23 13:56] LABS: BILIRUBIN,TOTAL 1.1 mg/dL (0.2-1); TOT PROT 7.8 g/dl (6.4-8.2)
[2024-03-23 13:57] LABS: ALK PHOS 101 U/L (45-117)
[2024-03-23 14:00] LABS: SGPT/ALT 194 U/L (13-61)
[2024-03-23] MEDS: hydrOXYzine PAMOATE 25 MG CAPSULE (FP) PO PRN (16:48)
[2024-03-23] MEDS: QUEtiapine FUMARATE 100 MG TABLET (FP) PO SCH (22:29)
[2024-03-24] MEDS: chlordiazePOXIDE HCL 25 MG CAPSULE PO SCH (06:18)
[2024-03-24] MEDS: chlordiazePOXIDE HCL 25 MG CAPSULE PO PRN (06:49)
[2024-03-24] MEDS: BISMUTH SUBSALICYLATE 524 MG/30 ML PO PRN (17:31)
[2024-03-25] MEDS ORDERED: chlordiazePOXIDE HCL 10 MG CAPSULE PO PRN
[2024-03-25] MEDS: chlordiazePOXIDE HCL 10 MG CAPSULE PO SCH (05:30)
[2024-03-26] MEDS: chlordiazePOXIDE HCL 10 MG CAPSULE PO SCH (05:50)
[2024-03-27] MEDS: chlordiazePOXIDE HCL 10 MG CAPSULE PO ONE (06:10)
[2024-03-28 09:23] VITALS: RESP 18
[2024-03-29 13:40] VITALS: BP 132/88; PULSE 77; TEMP 98.2
== END 2024-03-29 14:43 | disposition other institution (70) | DRG 775 ==
LOC: YASAS 11:59 → Y3N 13:35
PROVIDERS: ADMIT Allergy & Immunology; ATTEND Surgery
PROC: HZ2ZZZZ Detoxification Services for Substance Abuse Treatment (ICD-10-PCS; principal; 2024-03-22)
DX: F10.230 Alcohol dependence with withdrawal, uncomplicated (principal); F16.20 Hallucinogen dependence, uncomplicated; F12.20 Cannabis dependence, uncomplicated; F19.24 Other psychoactive substance dependence with psychoactive substance-induced mood disorder; F31.9 Bipolar disorder, unspecified; F19.282 Other psychoactive substance dependence with psychoactive substance-induced sleep disorder; F41.9 Anxiety disorder, unspecified; G40.909 Epilepsy, unspecified, not intractable, without status epilepticus; L85.3 Xerosis cutis; R74.01 Elevation of levels of liver transaminase levels; Z87.820 Personal history of traumatic brain injury; Z56.0 Unemployment, unspecified; Z59.00 Homelessness unspecified; Z72.0 Tobacco use
CPT/HCPCS: 36415; 80053; 80305; 80307; 85027; 86780; 87811; 90656; 93005; 93010; G0008

== ENCOUNTER 2024-03-29 14:37 | Inpatient (IN) | payer OTHER ==
[2024-03-29] MEDS ORDERED: IBUPROFEN 400 MG TABLET (FP) PO PRN (15:57)
[2024-03-29] MEDS ORDERED: NALOXONE (NARCAN) HCL 4 MG/0.1 ML SPRAY NS PRN (15:57)
[2024-03-29] MEDS ORDERED: NALOXONE HCL 0.4 MG/ML VIAL IVPUSH PRN (15:57)
[2024-03-29] MEDS ORDERED: MAG HYDROX/AL HYDROX/SIMETH 30 ML UNIT-DOSE CUP PO PRN (15:57)
[2024-03-29] MEDS ORDERED: POLYETHYLENE GLYCOL (HEALTHYLAX) 3350 17 GM PACKET PO PRN (15:57)
[2024-03-29] MEDS ORDERED: LOPERAMIDE HCL 2 MG CAPSULE PO PRN (15:57)
[2024-03-29] MEDS ORDERED: ACETAMINOPHEN 325 MG TABLET (FP) PO PRN (15:57)
[2024-03-29] MEDS ORDERED: MAGNESIUM HYDROX 2400MG/30ML ORAL SUSPENSION 30 ML CUP PO PRN (15:57)
[2024-03-29] MEDS ORDERED: guaiFENesin 600 MG TABLET.ER (FP) PO PRN (15:57)
[2024-03-29] MEDS ORDERED: NICOTINE POLACRILEX 2 MG GUM BUC PRN (16:00)
[2024-03-29] MEDS: hydrOXYzine PAMOATE 25 MG CAPSULE (FP) PO PRN (19:37)
[2024-03-29] MEDS: MELATONIN 5 MG TABLETS PO SCH ×2 (21:25→21:44)
[2024-03-29] MEDS: METHOCARBAMOL 500 MG TABLET PO PRN (21:45)
[2024-03-29] MEDS: QUEtiapine FUMARATE 100 MG TABLET (FP) PO SCH (21:45)
[2024-03-29] MEDS: THIAMINE 100 MG TABLET PO SCH (21:46)
[2024-03-29] MEDS ORDERED: PATIENT'S OWN MEDICATION (NON-FORMULARY) (Melatonin [Melatonin] 5 MG Tablet) PO SCH (22:00)
[2024-03-30] MEDS: PRENATAL VITAMINS W/ FOLIC ACID TABLET (FP) PO SCH (09:31)
[2024-03-30] MEDS: AMMONIUM LACTATE 12% LOTION 225 GM BOTTLE TP SCH (09:34)
[2024-03-31] MEDS: BENZOCAINE/MENTHOL (CHLORASEPTIC ) LOZENGE MM PRN (07:00)
[2024-03-31] MEDS: BENZONATATE 200 MG CAPSULE PO PRN (07:00)
[2024-04-01] MEDS ORDERED: DICYCLOMINE HCL 10 MG CAPSULE PO PRN (12:22)
[2024-04-01] MEDS ORDERED: guaiFENesin 600 MG TABLET.ER (FP) PO PRN (12:22)
[2024-04-01] MEDS ORDERED: BISMUTH SUBSALICYLATE 262 MG/15 ML BTL PO PRN (12:22)
[2024-04-01] MEDS ORDERED: ONDANSETRON *ODT* 4 MG TABLET SL PRN (12:22)
[2024-04-01] MEDS ORDERED: OXYMETAZOLINE 0.05% NASAL SOLUTION 15 ML BOTTLE NS PRN (12:25)
[2024-04-01] MEDS: BENZONATATE 200 MG CAPSULE PO PRN (21:16)
[2024-04-01] MEDS: IBUPROFEN 600 MG TABLET (FP) PO PRN (23:14)
[2024-04-02 17:10] LABS: HEMATOCRIT 44.8 % (35.4-49); HEMOGLOBIN 15.3 GM/dL (11.7-16.9); MCH 34.5 pg (25.7-33.7); MCHC 34.3 g/dl (32.0-35.9); MEAN CELL VOLUME 100.9 fl (80-96); MEAN PLT VOLUME 9.3 fl (7.5-11.1); PLATELET COUNT 222 10^3/uL (134-434); RBC 4.44 M/mm3 (4.00-5.60); RDW 12.3 % (11.9-15.9); WHITE BLOOD COUNT 10.8 K/mm3 (4.0-10.0)
[2024-04-02 17:21] LABS: POTASSIUM 3.8 mmol/L (3.5-5.1)
[2024-04-02 17:22] LABS: INR 1.12 (0.83-1.09); PROTHROMBIN TIME (PATIENT) 12.8 SEC (9.7-13.0)
[2024-04-02 17:27] LABS: ALBUMIN 3.7 g/dl (3.4-5.0); BLOOD UREA NITROGEN 11.7 mg/dL (7-18); CALCIUM 9.5 mg/dL (8.5-10.1); CREATININE 0.8 mg/dL (0.55-1.3); MAGNESIUM 1.7 mg/dL (1.8-2.4)
[2024-04-02 17:32] LABS: BILIRUBIN,TOTAL 0.6 mg/dL (0.2-1); TOT PROT 7.6 g/dl (6.4-8.2)
[2024-04-05] MEDS: ACAMPROSATE CALCIUM 333 MG TABLET.DR PO SCH (14:27)
[2024-04-05] MEDS: LACTULOSE 20 GM/30 ML UDC (FOR ORAL USE ONLY) PO SCH (14:27)
[2024-04-05] MEDS: GABAPENTIN 300 MG CAPSULE PO SCH (14:27)
[2024-04-06] MEDS: GABAPENTIN 300 MG CAPSULE PO SCH (13:04)
[2024-04-08 06:42] VITALS: BP 137/88; PULSE 89; RESP 17; TEMP 97.4
== END 2024-04-08 16:35 | disposition left against medical advice (07) | DRG 772 ==
LOC: YASAS 14:37 → Y3NR 14:39 → Y3E 03-30 09:44
PROVIDERS: ADMIT Psychiatry & Neurology Pain Medicine; ATTEND Psychiatry & Neurology Pain Medicine
PROC: HZ42ZZZ Group Counseling for Substance Abuse Treatment, Cognitive-Behavioral (ICD-10-PCS; principal; 2024-03-29)
DX: F10.20 Alcohol dependence, uncomplicated (principal); F16.20 Hallucinogen dependence, uncomplicated; F12.20 Cannabis dependence, uncomplicated; F17.210 Nicotine dependence, cigarettes, uncomplicated; F19.282 Other psychoactive substance dependence with psychoactive substance-induced sleep disorder; F31.9 Bipolar disorder, unspecified; F20.9 Schizophrenia, unspecified; F39 Unspecified mood [affective] disorder; F43.10 Post-traumatic stress disorder, unspecified; F41.9 Anxiety disorder, unspecified; E72.20 Disorder of urea cycle metabolism, unspecified; R73.9 Hyperglycemia, unspecified; Z87.820 Personal history of traumatic brain injury; F91.8 Other conduct disorders; Z91.199 Patient's noncompliance with other medical treatment and regimen due to unspecified reason
CPT/HCPCS: 0241U-QW; 36415; 80053; 82140; 82652; 83735; 85027; 85610; 86803

== ENCOUNTER 2024-12-20 15:19 | Emergency (ER) | payer OTHER ==
[2024-12-20 15:52] VITALS: BP 100/64; PULSE 75; RESP 16; TEMP 98.2; BMI 21.9
== END 2024-12-20 17:48 | disposition home or self-care (01) ==
LOC: MERGE 15:19 → JER 15:19
DX: S00.83XA Contusion of other part of head, initial encounter (principal); S40.811A Abrasion of right upper arm, initial encounter; F41.9 Anxiety disorder, unspecified; R25.1 Tremor, unspecified; Y04.8XXA Assault by other bodily force, initial encounter
CPT/HCPCS: 70450-TC; 99284-25